=== PATIENT | female | born 1990 | race Two or more races ===

== ENCOUNTER 2020-01-29 21:07 | Inpatient (IN) ==
[2020-01-29] MEDS ORDERED: SODIUM CHLORIDE 0.9% 1000ML 1,000 ML IV ONE (21:39)
[2020-01-29] MEDS ORDERED: cefTRIAXone SODIUM 2,000 MG/70 ML BAG IV STA (21:39)
[2020-01-29] MEDS ORDERED: ONDANSETRON INJ 2 MG/ML 2 ML VIAL IV STA (21:40)
[2020-01-29] MEDS ORDERED: MoRPHine SULFATE 4 MG/ML 1 ML CARP\\VIAL IV STA (21:40)
--- NOTE | 2020-01-29 21:42 | Emergency Department Note ---
History of Present Illness General Chief complaint: Infection Stated complaint: CYST ON ABDOMIN, CHILLS Time Seen by Provider: 01/29/20 21:30 History of Present Illness Maximum Pain Intensity: 6 This 29-year-old diabetic presents to the ER complaining of lower abdominal wall infection Location: Lower abdomen Quality: Painful Severity: Moderate Duration: Past several days Timing: Started several days ago Context: Symptoms got worse and patient came in Modifying factors: better with rest; worse with palpation Patient states the redness spread and was concerned and came in. She complains of subjective fever and chills. No documented temperature. She is visiting from [place]. She is a [employer]. Patient denies chest pain, dyspnea, cough, congestion, vomiting, diarrhea. No history of MRSA. Tetanus is current. Home Medications Medication Instructions Recorded Confirmed Type fluticasone propion-salmeterol 1 inh INHALATION BID 01/29/20 01/29/20 History [Advair Diskus] metformin 500 mg PO BID 01/29/20 01/29/20 History Allergies Allergy/AdvReac Type Severity Reaction Status Date / Time No Known Allergies Allergy Unverified 01/29/20 22:44 Past Med/Surg History Medical History Asthma Diabetes Surgical History Hx of cholecystectomy Social History Smoking Status: Never smoker Feels Safe at Home: Yes Review of Systems A total of 10 systems reviewed and were otherwise negative Physical Exam Vital Signs Vital Signs - 24 hr 01/29/20 21:09 01/29/20 21:54 01/29/20 22:25 Temperature 36.6 C Temperature Source Temporal Artery Scan Pulse Rate 93 H 91 H Pulse Rate [Apical] Pulse Rate from SpO2 Sensor 92 H Respiratory Rate 18 19 Respiratory Effort / Characteristics Non-Labored Blood Pressure 181/125 H 159/105 H Blood Pressure [Left Arm] Blood Pressure Mean 143 130 Blood Pressure Mean [Left Arm] Pulse Oximetry 96 99 98 Oxygen Delivery Method Room Air Room Air Sepsis Recent Fever Within 48 Hours No Sepsis New/Unexplained Change in Mental Status No Sepsis Action Taken by Nursing No Action Required 01/29/20 22:29 01/29/20 22:30 01/29/20 22:31 Temperature Temperature Source Pulse Rate 88 94 H 91 H Pulse Rate [Apical] Pulse Rate from SpO2 Sensor 88 94 H 91 H Respiratory Rate 19 16 20 Respiratory Effort / Characteristics Blood Pressure 155/87 H Blood Pressure [Left Arm] Blood Pressure Mean 95 Blood Pressure Mean [Left Arm] Pulse Oximetry 98 96 98 Oxygen Delivery Method Sepsis Recent Fever Within 48 Hours Sepsis New/Unexplained Change in Mental Status Sepsis Action Taken by Nursing 01/29/20 23:00 01/29/20 23:01 01/29/20 23:10 Temperature Temperature Source Pulse Rate 88 86 85 Pulse Rate [Apical] Pulse Rate from SpO2 Sensor 88 86 85 Respiratory Rate 19 21 15 Respiratory Effort / Characteristics Blood Pressure 183/99 H Blood Pressure [Left Arm] Blood Pressure Mean 105 Blood Pressure Mean [Left Arm] Pulse Oximetry 98 98 98 Oxygen Delivery Method Sepsis Recent Fever Within 48 Hours Sepsis New/Unexplained Change in Mental Status Sepsis Action Taken by Nursing 01/29/20 23:26 01/29/20 23:27 01/30/20 00:11 Temperature Temperature Source Pulse Rate 88 93 H Pulse Rate [Apical] 90 Pulse Rate from SpO2 Sensor 87 93 H Respiratory Rate 18 15 18 Respiratory Effort / Characteristics Blood Pressure 159/71 H Blood Pressure [Left Arm] 146/76 H Blood Pressure Mean 95 Blood Pressure Mean [Left Arm] 99 Pulse Oximetry 98 97 98 Oxygen Delivery Method Room Air Sepsis Recent Fever Within 48 Hours Sepsis New/Unexplained Change in Mental Status Sepsis Action Taken by Nursing VITALS: Vitals are noted on the nurse's note and reviewed by myself. Vital signs hypertensive GENERAL: Pleasant female who appears in pain, in no acute distress, nondiaphoretic, well-developed well-nourished. SKIN: Capillary reflex less than 2 seconds. HEENT: Normocephalic. PERRLA. EOMI. Nares patent. Mucous membranes moist. Neck is supple without nuchal rigidity. HEART: Regular rate and rhythm without murmurs gallops or rubs. LUNGS: Clear to auscultation bilaterally without wheezes, rales or rhonchi. No retractions or accessory muscle use. ABDOMEN: Positive bowel sounds x 4. Normal tympanic percussion. Soft, tender to palpation lower abdomen with abscess present with extensive surrounding cellulitis, without masses or organomegaly. [place] sign negative. No guarding or rebound tenderness. No CVA tenderness MUSCULOSKELETAL: No gross musculoskeletal defects. NEURO: Patient was alert and oriented to person place and time. No focal neurological deficits. Course Administered Medications Discontinued Medications Sodium Chloride (Nss 1000ml) 1,000 mls @ 999 mls/hr IV .Q1H1M ONE Stop: 01/29/20 22:39 Last Infusion: 01/30/20 00:06 Dose: 0 mls/hr Documented by: [id number] Admin: 01/29/20 22:12 Dose: 999 mls/hr Documented by: [id number] Ceftriaxone Sodium (Rocephin) 2,000 mg in 70 mls @ 140 mls/hr IV NOW STA Stop: 01/29/20 22:08 Last Infusion: 01/29/20 22:51 Dose: 0 mls/hr Documented by: [id number] Admin: 01/29/20 22:21 Dose: 140 mls/hr Documented by: [id number] Vancomycin HCl 2,250 mg/ (Sodium Chloride) 545 mls @ 200 mls/hr IV NOW ONE Stop: 01/30/20 00:30 Last Admin: 01/29/20 23:05 Dose: 200 mls/hr Documented by: [id number] Ioversol (Ioversol 100ml) 94 ml IV ONCE ONE Stop: 01/29/20 23:24 Last Admin: 01/29/20 23:23 Dose: 94 ml Documented by: [id number] Morphine Sulfate (Morphine Sulfate 4 Mg/Ml 1 Ml Carp\Vial) 4 mg IV NOW STA Stop: 01/29/20 21:41 Last Admin: 01/29/20 22:21 Dose: 4 mg Documented by: [id number] Morphine Sulfate (Morphine Sulfate 4 Mg/Ml 1 Ml Carp\Vial) 4 mg IV NOW STA Stop: 01/30/20 00:07 Last Admin: 01/30/20 00:11 Dose: 4 mg Documented by: [id number] Ondansetron HCl (Ondansetron Inj 2 Mg/Ml 2 Ml Vial) 4 mg IV NOW STA Stop: 01/29/20 21:41 Last Admin: 01/29/20 22:21 Dose: 4 mg Documented by: [id number] Medical Decision Making Medical Records Attestation: I reviewed the patient's medical records. Home Medications Current Medication List: was personally reviewed by ms Laboratory Data Attestation: I reviewed the patient's lab results. Result diagrams: 01/29/20 22:01 01/29/20 22:01 Lab Results 01/29/20 01/29/20 01/29/20 Range/Units 22:00 22:01 22:01 WBC 15.15 H (4.8-10.8) K/uL RBC 4.76 (4.2-5.4) M/uL Hgb 12.9 (12.0-16.0) g/dL Hct 40.5 (37-47) % MCV 85.1 (80-100) fL MCH 27.1 (25-34) pg MCHC 31.9 L (32-36) g/dL RDW Std Deviation 42.4 (36.4-46.3) fL RDW Coeff of Wily 13.6 (11.5-14.5) % Plt Count 288 (130-400) K/uL MPV 10.9 H (7.4-10.4) fL Immature Gran % (Auto) 0.2 % Neut % (Auto) 72.4 % Lymph % (Auto) 17.4 % Harrison % (Auto) 6.0 % Eos % (Auto) 3.9 % Baso % (Auto) 0.1 % Neut # (Auto) 10.97 H (1.4-6.5) K/uL Lymph # (Auto) 2.64 (1.2-3.4) K/uL Harrison # (Auto) 0.91 H (0.11-0.59) K/uL Eos # (Auto) 0.59 H (0-0.5) K/uL Baso # (Auto) 0.01 (0-0.2) K/uL Immature Gran # (Auto) 0.03 H (0.00-0.02) K/uL Sodium 135 L (136-145) mmol/L Potassium 3.9 (3.5-5.1) mmol/L Chloride 103 (98-107) mmol/L Carbon Dioxide 27 (21-32) mmol/L Anion Gap 5.0 (3-11) BUN 12 (7-18) mg/dl Creatinine 0.79 (0.6-1.2) mg/dl Est Cr Clr Drug Dosing 125.6 ml/min Est GFR ( Amer) 117.2 Est GFR (Non-Af Amer) 101.2 BUN/Creatinine Ratio 15.6 (10-20) Glucose 229 H (70-99) mg/dl Lactate (0.4-2.0) mmol/L Calcium 8.6 (8.5-10.1) mg/dl Magnesium 1.9 (1.8-2.4) mg/dl Total Bilirubin 0.3 (0.2-1) mg/dl AST 35 (15-37) U/L ALT 54 (12-78) U/L Alkaline Phosphatase 126 H (45-117) U/L Total Protein 8.4 H (6.4-8.2) gm/dl Albumin 3.6 (3.4-5.0) gm/dl Globulin 4.8 H (2.5-4.0) gm/dl Albumin/Globulin Ratio 0.7 L (0.9-2) HCG, Qual (Negative) Urine Color Yellow Urine Appearance Slightly Cloudy (Clear) Urine pH 5.5 (4.5-7.5) Ur Specific [place] >= 1.030 (1.000-1.030) Urine Protein 1+ H (Negative) Urine Glucose (UA) 2+ H (Negative) Urine Ketones Trace H (Negative) Urine Blood 3+ H (Negative) Urine Nitrite Negative (Negative) Urine Bilirubin Negative (Negative) Urine Urobilinogen Negative (Negative) Ur Leukocyte Esterase Negative (Negative) Urine RBC >30 H (0-4) /hpf Urine WBC >30 H (0-5) /hpf Ur Epithelial Cells >30 H (0-5) /lpf Urine Bacteria 1+ H (Negative) SARS-CoV-2 Ag (Rapid) (Negative) 01/29/20 01/29/20 01/30/20 Range/Units 22:01 22:01 00:37 WBC (4.8-10.8) K/uL RBC (4.2-5.4) M/uL Hgb (12.0-16.0) g/dL Hct (37-47) % MCV (80-100) fL MCH (25-34) pg MCHC (32-36) g/dL RDW Std Deviation (36.4-46.3) fL RDW Coeff of Wily (11.5-14.5) % Plt Count (130-400) K/uL MPV (7.4-10.4) fL Immature Gran % (Auto) % Neut % (Auto) % Lymph % (Auto) % Harrison % (Auto) % Eos % (Auto) % Baso % (Auto) % Neut # (Auto) (1.4-6.5) K/uL Lymph # (Auto) (1.2-3.4) K/uL Harrison # (Auto) (0.11-0.59) K/uL Eos # (Auto) (0-0.5) K/uL Baso # (Auto) (0-0.2) K/uL Immature Gran # (Auto) (0.00-0.02) K/uL Sodium (136-145) mmol/L Potassium (3.5-5.1) mmol/L Chloride (98-107) mmol/L Carbon Dioxide (21-32) mmol/L Anion Gap (3-11) BUN (7-18) mg/dl Creatinine (0.6-1.2) mg/dl Est Cr Clr Drug Dosing ml/min Est GFR ( Amer) Est GFR (Non-Af Amer) BUN/Creatinine Ratio (10-20) Glucose (70-99) mg/dl Lactate 1.6 (0.4-2.0) mmol/L Calcium (8.5-10.1) mg/dl Magnesium (1.8-2.4) mg/dl Total Bilirubin (0.2-1) mg/dl AST (15-37) U/L ALT (12-78) U/L Alkaline Phosphatase (45-117) U/L Total Protein (6.4-8.2) gm/dl Albumin (3.4-5.0) gm/dl Globulin (2.5-4.0) gm/dl Albumin/Globulin Ratio (0.9-2) HCG, Qual Negative (Negative) Urine Color Urine Appearance (Clear) Urine pH (4.5-7.5) Ur Specific [place] (1.000-1.030) Urine Protein (Negative) Urine Glucose (UA) (Negative) Urine Ketones (Negative) Urine Blood (Negative) Urine Nitrite (Negative) Urine Bilirubin (Negative) Urine Urobilinogen (Negative) Ur Leukocyte Esterase (Negative) Urine RBC (0-4) /hpf Urine WBC (0-5) /hpf Ur Epithelial Cells (0-5) /lpf Urine Bacteria (Negative) SARS-CoV-2 Ag (Rapid) Negative (Negative) Imaging Data Attestation: I personally reviewed and interpreted this imaging study as follows: MDM Narrative Prior records/ancillary studies reviewed and summarized above. Nursing notes reviewed. The patient's history was concerning for abdominal wall infection. Differential diagnosis: Etiologies such as metabolic, infection, hypo/hyperglycemia, electrolyte abnormalities, cardiac sources, intracerebral event, toxicologic, neurologic, as well as others were entertained. Physical examination: As above. ER treatment provided: IV Lock An order was placed for continuous cardiac monitoring. The monitor shows a rate of 60-1 10 with a sinus rhythm. IV fluids, Rocephin, morphine, Zofran On reassessment the patient felt better. Diagnostics interpretation by me: The labs revealed leukocytosis, hyperglycemia w/o DKA Blood cultures pending Imaging studies: ADDENDUM - Added by Luis Armando Acevedo MD on 01/29/2020 11:50 PM (-08:00) Addendum: Abscess along the right lower quadrant abdominal wall skin surface measuring 3.0 x 2.6 x 2.3 cm. Surrounding skin thickening and subcutaneous fat stranding consistent with cellulitis. CT ABDOMEN & PELVIS With Contrast: No acute abnormality along the GI tract. Normal appendix. Minimal colonic diverticulosis without diverticulitis. Hepatic steatosis and hepatomegaly. Cholecystectomy. Pancreas, spleen, adrenal glands, and kidneys are unremarkable. Left ovarian cyst measuring 2.8 cm. Radiologist: Luis Armando Acevedo MD Study ready at 23:30 and initial results transmitted at 23:36 Communications: Clear Time Type Notes 01/29/20 23:54 Call From [facility] TEDDY Oglesby on 01/28 23:47 (-05:00) Consultation: A consultation was placed with the hospitalist. The case was discussed and diagnostics were reviewed. The patient was evaluated in the ER for further treatment. Exam and history seem consistent with abdominal wall cellulitis with small abscess. This is quite extensive. Patient was started on antibiotics. Medicine was consulted. She will be evaluated for admission. Patient had subjective fever and chills. Elevated white count. Poorly controlled diabetic. By the evaluation outlined above emergent etiologies such as electrolyte abnormalities, cardiac sources, intracerebral event, toxologic, neurologic, metabolic, as well as others were deemed relatively unlikely. The pt informed about the findings as listed above. All questions were answered and pleased with the treatment. The chart was completed utilizing [employer] Speech voice recognition software. G rammatical errors, random word insertions, pronoun errors, and incomplete sentences are an occassional consequence of this system due to software limitations, ambient noise, and hardware issues. Any formal questions or concerns about the content, text, or information contained within the body of th is dictation should be directly addressed to the physician front desk assistant for clarification. Impression & Plan Abdominal wall cellulitis Discharge Plan Visit Data Chief Complaint: Infection Stated Complaint: CYST ON ABDOMIN, CHILLS ED Provider: Homero Lopez ED Midlevel Provider: Juliana Oglesby Discharge Problem: Abdominal wall cellulitis Patient Disposition: Admitted As Inpatient Condition: Good Forms Stand Alone Forms: [facility] Instilling Values Prescriptions Prescriptions: No Action metformin 500 mg Tablet 500 mg PO BID RF: 0 fluticasone propion-salmeterol [Advair Diskus] 250-50 mcg/dose Blister With Device 1 inh INHALATION BID RF: 0 Referrals Referrals: PCP,NO [Primary Care Provider] -
[2020-01-29] MEDS ORDERED: VANCOMYCIN HCL 2,250 MG in SODIUM CHLORIDE 0.9% 500 ML IV ONE (21:47)
[2020-01-29] MEDS ORDERED: VANCOMYCIN CONSULT ACTIVE PRN (21:47)
[2020-01-29 22:17] LABS: Basophils # (auto) 0.01 K/uL (0-0.2); Basophils % (auto) 0.1 %; Eosinophils # (auto) 0.59 K/uL (0-0.5); Eosinophils % (auto) 3.9 %; Hematocrit (blood only) 40.5 % (37-47); Hemoglobin 12.9 g/dL (12.0-16.0); Immature Granulocytes # (auto) 0.03 K/uL (0.00-0.02); Immature Granulocytes % (auto) 0.2 %; Lymphocytes # (auto) 2.64 K/uL (1.2-3.4); Lymphocytes % (auto) 17.4 %; Mean Corpuscular Hemoglobin 27.1 pg (25-34); Mean Corpuscular Hgb Conc 31.9 g/dL (32-36); Mean Corpuscular Volume 85.1 fL (80-100); Mean Platelet Volume 10.9 fL (7.4-10.4); Monocytes # (auto) 0.91 K/uL (0.11-0.59); Neutrophils # (auto) 10.97 K/uL (1.4-6.5); Neutrophils % (auto) 72.4 %; Platelet Count 288 K/uL (130-400); RDW Coefficient of Variation 13.6 % (11.5-14.5); RDW Standard Deviation 42.4 fL (36.4-46.3); Red Blood Count 4.76 M/uL (4.2-5.4); White Blood Count 15.15 K/uL (4.8-10.8)
[2020-01-29 22:23] LABS: Appearance Urine Slightly Cloudy (Clear); Bilirubin Urine Negative (Negative); Blood Urine 3+ (Negative); Color Urine Yellow; Glucose Urine UA 2+ (Negative); Ketones Urine Trace (Negative); Leukocyte Esterase Urine Negative (Negative); Nitrite Urine Negative (Negative); Protein Urine 1+ (Negative); Specific Gravity Urine >= 1.030 (1.000-1.030); Urobilinogen Urine Negative (Negative); pH Urine 5.5 (4.5-7.5)
[2020-01-29 22:45] LABS: Epithelial Cell Urine >30 /lpf (0-5); RBC Urine >30 /hpf (0-4); WBC Urine >30 /hpf (0-5)
[2020-01-29 22:46] LABS: Albumin Level 3.6 gm/dl (3.4-5.0); BUN Creatinine Ratio 15.6 (10-20); Calcium 8.6 mg/dl (8.5-10.1); Creatinine Clr Calc Pharmacy 125.6 ml/min; Est GFR (African American) 117.2; Est GFR (Non-African American) 101.2; Magnesium 1.9 mg/dl (1.8-2.4); Potassium 3.9 mmol/L (3.5-5.1)
[2020-01-29 22:46] LABS: Bacteria Urine 1+ (Negative)
[2020-01-29 22:49] LABS: Albumin Globulin Ratio 0.7 (0.9-2); Bilirubin,Total 0.3 mg/dl (0.2-1); Globulin 4.8 gm/dl (2.5-4.0); Pregnancy Test, Serum Negative (Negative); Total Protein 8.4 gm/dl (6.4-8.2)
[2020-01-29] MEDS ORDERED: IOVERSOL 100ml IV ONE (23:23)
[2020-01-30] MEDS ORDERED: MoRPHine SULFATE 4 MG/ML 1 ML CARP\\VIAL IV STA (00:06)
--- NOTE | 2020-01-30 01:25 | History & Physical Report ---
Date of Service January 30, 2020 Assessment & Plan (1) Abdominal wall cellulitis: Patient is a 29-year-old female with a past medical history of obesity, diabetes mellitus, asthma, cholecystectomy, and lipoma removal who presents for evaluation of suspected infection with associated abdominal pain. #Abdominal wall pain secondary to cellulitis complicated by diabetes in the setting of obesity and asthma See HPI for patient's history related to this illness. Imaging was obtained of the CT abdomen pelvis demonstrating abscess along the right lower quadrant abdominal wall skin surface measuring 3 x 2.6 x 2.3 cm surrounding skin thickening and subcu fat stranding consistent with cellulitis. Patient examines with a infected skin abscess on her right lower quadrant, exquisitely tender to palpation, with significant erythema across the bilateral lower quadrants. 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 We will consult surgery to for their opinions on the merits of incision and drainage versus medical management to that extent the patient will be made n.p.o. She will be admitted to [facility] for treatment. -Analgesia with morphine -Appreciate general surgery consultation regarding I&D versus medical management -N.p.o. after midnight -LR@125 -Vancomycin daily -Trend daily CBC/BMP #Diabetes Hold home meds, glycemic consult placed -Glycemic consult #Asthma -Continue home Advair #Heavy vaginal bleeding related to menstruation Patient reports a recent history of heavy vaginal bleeding related to her menstruation. Currently she is not having any heavy bleeding, denies being . Denies other concerning signs or symptoms that would indicate an underlying gynecological process. 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 pending surgical evaluation then diabetes type 2 diet Code Status: Full DVT PPX: SCDs pending surgical evaluation then consider transition to heparin versus Lovenox PT/OT: Not indicated Dispo: [facility] Kory Bray MD PGY 2, FCM This chart was completed utilizing [employer] voice recognition software. Grammatical errors, random word insertions, pronoun errors, and in complete sentences are an occasional consequence of the system. Any questions or concerns about the content, text, or information contained within the body of this dictation should be addressed directly to the physician for clarification. (2) Obesity: (3) Diabetes: (4) Asthma: History of Present Illness Patient is a 29-year-old female with a past medical history of obesity, diabetes mellitus, asthma, cholecystectomy, and lipoma removal who presents for evaluation of suspected infection with associated abdominal pain. Patient reports she has been in her normal state of health, adhering to her diabetic medication as indicated until approximately 5 days ago when she noticed a boil on her lower abdomen. She attempted to apply hot compresses to it, despite her efforts to continue to progressively increase in size and her pain increased as well. Today the patient stated the pain became unbearable, and the size had more than quadrupled. She was also experiencing significant erythema across the entire lower abdominal wall. Additionally she was experiencing fevers, chills, anorexia and generalized malaise associated with her boil and erythema. At her sister's insistence she presented to the [facility] in the emergency room.In the emergency department routine laboratories were obtained demonstrating a white count of 15.15 with a neutrophil per domination, CMP demonstrated a glucose of 229, alk phos of 126, and liver enzymes within normal limits. Urinalysis was suspicious for UTI versus skin contamination, will have to follow-up the culture, blood and urine cultures were obtained. Imaging was obtained of the CT abdomen pelvis demonstrating abscess along the right lower quadrant abdominal wall skin surface measuring 3 x 2.6 x 2.3 cm surrounding skin thickening and mabry bcu fat stranding consistent with cellulitis. Patient was Covid negative. She was given a dose of vancomycin, a liter of fluid, pain control, and ceftriaxone in the emergency department. Given her constitutional symptoms, physical exam findings, and imaging findings the primary team was called for admission. 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 Additionally when inquiring about the patient reported a recent history of extremely heavy menstruation lasting for an extended period of time with associated fatigue, she is not currently heavily menstruating. Primary Care Provider: NO PCP Allergies Allergy/AdvReac Type Severity Reaction Status Date / Time No Known Allergies Allergy Unverified 01/29/20 22:44 Home Medications Medication Instructions Recorded Confirmed Type fluticasone propion-salmeterol 1 inh INHALATION BID 01/29/20 01/29/20 History [Advair Diskus] metformin 500 mg PO BID 01/29/20 01/29/20 History Past Med/Surg History Medical History (Updated 01/30/20 @ 12:00 by Morris Collins MD) Asthma Diabetes Surgical History Hx of cholecystectomy Social History Smoking Status: Former smoker Second Hand Exposure: No; Do You Dip or Chew Tobacco: No; Tobacco Cessation Education Requested by Patient: No Hx Alcohol Use: Yes Alcohol type: wine and hard liquor Hx Substance Use: Yes Last Used Substance: Days (ago) Preferred Language: Mohawk Communication Ability: Effective Director Of Social Work Required: No Beliefs That Will Affect Care: None Current Living Situation: Alone Other Information That Helps Us Care for You: No Feels Safe at Home: Yes Safety Concerns: Feels Safe At This Time Assistive Devices: Glasses Review of Systems Review of Systems: All systems reviewed & are unremarkable except as noted in HPI & below Physical Exam Physical Exam: General: Obese female in no acute distress lying in bed endorsing abdominal pain HEENT: Normocephalic atraumatic Neck: Normal to visual inspection, trachea midline Cardiac: Regular rate and rhythm I did not appreciate any significant murmurs rubs or gallops, normal S1, normal S2, negative pedal edema, negative calf tenderness Respiratory: Clear to auscultation bilaterally with symmetrical chest expansion I did not appreciate any significant wheezes, rales, rhonchi, no increased work of breathing GI: Lower quadrants are soft and tender to palpation, soft abdomen is protuberant however nondistended, tenderness is related to infection. Otherwise bowel sounds present MSK: Moves all extremities Skin: Abscess formation the right lower quadrant and erythema in the lower quadrants of her abdomen Neuro: Alert and oriented x4 Psych: Calm and cooperative Results & Data Results & Data ([facility]) Vital Signs (Past 12 Hours) Vital Signs Temp Pulse Pulse Resp BP BP Pulse Ox 01/30/20 00:11 90 18 146/76 H 98 01/29/20 23:27 93 H 15 159/71 H 97 01/29/20 23:26 88 18 98 01/29/20 23:10 85 15 98 01/29/20 23:01 86 21 98 01/29/20 23:00 88 19 183/99 H 98 01/29/20 22:31 91 H 20 98 01/29/20 22:30 94 H 16 155/87 H 96 01/29/20 22:29 88 19 98 01/29/20 22:25 91 H 19 159/105 H 98 01/29/20 21:54 99 01/29/20 21:09 36.6 C 93 H 18 181/125 H 96 Laboratory Results 01/30/20 01/29/20 01/29/20 Range/Units 00:37 22:01 22:01 WBC (4.8-10.8) K/uL RBC (4.2-5.4) M/uL Hgb (12.0-16.0) g/dL Hct (37-47) % MCV (80-100) fL MCH (25-34) pg MCHC (32-36) g/dL RDW Std Deviation (36.4-46.3) fL RDW Coeff of Wily (11.5-14.5) % Plt Count (130-400) K/uL MPV (7.4-10.4) fL Immature Gran % (Auto) % Neut % (Auto) % Lymph % (Auto) % Ford % (Auto) % Eos % (Auto) % Baso % (Auto) % Neut # (Auto) (1.4-6.5) K/uL Lymph # (Auto) (1.2-3.4) K/uL Ford # (Auto) (0.11-0.59) K/uL Eos # (Auto) (0-0.5) K/uL Baso # (Auto) (0-0.2) K/uL Immature Gran # (Auto) (0.00-0.02) K/uL Sodium (136-145) mmol/L Potassium (3.5-5.1) mmol/L Chloride (98-107) mmol/L Carbon Dioxide (21-32) mmol/L Anion Gap (3-11) BUN (7-18) mg/dl Creatinine (0.6-1.2) mg/dl Est Cr Clr Drug Dosing ml/min Est GFR ( Amer) Est GFR (Non-Af Amer) BUN/Creatinine Ratio (10-20) Glucose (70-99) mg/dl Lactate 1.6 (0.4-2.0) mmol/L Calcium (8.5-10.1) mg/dl Magnesium (1.8-2.4) mg/dl Total Bilirubin (0.2-1) mg/dl AST (15-37) U/L ALT (12-78) U/L Alkaline Phosphatase (45-117) U/L Total Protein (6.4-8.2) gm/dl Albumin (3.4-5.0) gm/dl Globulin (2.5-4.0) gm/dl Albumin/Globulin Ratio (0.9-2) HCG, Qual Negative (Negative) Urine Color Urine Appearance (Clear) Urine pH (4.5-7.5) Ur Specific [place] (1.000-1.030) Urine Protein (Negative) Urine Glucose (UA) (Negative) Urine Ketones (Negative) Urine Blood (Negative) Urine Nitrite (Negative) Urine Bilirubin (Negative) Urine Urobilinogen (Negative) Ur Leukocyte Esterase (Negative) Urine RBC (0-4) /hpf Urine WBC (0-5) /hpf Ur Epithelial Cells (0-5) /lpf Urine Bacteria (Negative) SARS-CoV-2 Ag (Rapid) Negative (Negative) 01/29/20 01/29/20 01/29/20 Range/Units 22:01 22:01 22:00 WBC 15.15 H (4.8-10.8) K/uL RBC 4.76 (4.2-5.4) M/uL Hgb 12.9 (12.0-16.0) g/dL Hct 40.5 (37-47) % MCV 85.1 (80-100) fL MCH 27.1 (25-34) pg MCHC 31.9 L (32-36) g/dL RDW Std Deviation 42.4 (36.4-46.3) fL RDW Coeff of Wily 13.6 (11.5-14.5) % Plt Count 288 (130-400) K/uL MPV 10.9 H (7.4-10.4) fL Immature Gran % (Auto) 0.2 % Neut % (Auto) 72.4 % Lymph % (Auto) 17.4 % Ford % (Auto) 6.0 % Eos % (Auto) 3.9 % Baso % (Auto) 0.1 % Neut # (Auto) 10.97 H (1.4-6.5) K/uL Lymph # (Auto) 2.64 (1.2-3.4) K/uL Ford # (Auto) 0.91 H (0.11-0.59) K/uL Eos # (Auto) 0.59 H (0-0.5) K/uL Baso # (Auto) 0.01 (0-0.2) K/uL Immature Gran # (Auto) 0.03 H (0.00-0.02) K/uL Sodium 135 L (136-145) mmol/L Potassium 3.9 (3.5-5.1) mmol/L Chloride 103 (98-107) mmol/L Carbon Dioxide 27 (21-32) mmol/L Anion Gap 5.0 (3-11) BUN 12 (7-18) mg/dl Creatinine 0.79 (0.6-1.2) mg/dl Est Cr Clr Drug Dosing 125.6 ml/min Est GFR ( Amer) 117.2 Est GFR (Non-Af Amer) 101.2 BUN/Creatinine Ratio 15.6 (10-20) Glucose 229 H (70-99) mg/dl Lactate (0.4-2.0) mmol/L Calcium 8.6 (8.5-10.1) mg/dl Magnesium 1.9 (1.8-2.4) mg/dl Total Bilirubin 0.3 (0.2-1) mg/dl AST 35 (15-37) U/L ALT 54 (12-78) U/L Alkaline Phosphatase 126 H (45-117) U/L Total Protein 8.4 H (6.4-8.2) gm/dl Albumin 3.6 (3.4-5.0) gm/dl Globulin 4.8 H (2.5-4.0) gm/dl Albumin/Globulin Ratio 0.7 L (0.9-2) HCG, Qual (Negative) Urine Color Yellow Urine Appearance Slightly Cloudy (Clear) Urine pH 5.5 (4.5-7.5) Ur Specific [place] >= 1.030 (1.000-1.030) Urine Protein 1+ H (Negative) Urine Glucose (UA) 2+ H (Negative) Urine Ketones Trace H (Negative) Urine Blood 3+ H (Negative) Urine Nitrite Negative (Negative) Urine Bilirubin Negative (Negative) Urine Urobilinogen Negative (Negative) Ur Leukocyte Esterase Negative (Negative) Urine RBC >30 H (0-4) /hpf Urine WBC >30 H (0-5) /hpf Ur Epithelial Cells >30 H (0-5) /lpf Urine Bacteria 1+ H (Negative) SARS-CoV-2 Ag (Rapid) (Negative) Medications Administered Current Inpatient Medications Miscellaneous Information (Vancomycin Consult Active) 1 ea N/A UD PRN PRN Reason: Consult Stop: 02/28/20 21:46 Code Status & VTE Plan Code Status Full code VTE Prophylaxis Plan VTE Prophylaxis will be ordered: Yes Supervising Physician Co-Signing Physician Notes Attending addendum: I have physically seen this patient, have supervised the medical residents activities, and agree with the H&P unless as otherwise noted. Assessment and Plan: Abdominal wall cellulitis- Vancomycin IV per pharmacokinetic monitoring Ceftriaxone 2 g IV daily NPO after midnight LR at 125 mils per hour Consult general surgery Diabetes mellitus- Glycemic consult was written for Asthma- Continue Advair as outpatient Remaining orders and notations as noted Resident Activity Tracking Resident Involvement: Resident Care Provided Care Provided: Adult Hospital Medicine
[2020-01-30] MEDS ORDERED: VANCOMYCIN CONSULT ACTIVE PRN (01:41)
[2020-01-30] MEDS: LACTATED RINGER'S 1,000 ML IV SCH ×2 (01:45→14:10)
[2020-01-30] MEDS ORDERED: VANCOMYCIN HCL 1,000 MG in SODIUM CHLORIDE 0.9% 250 ML IV SCH (01:45)
[2020-01-30] MEDS: MoRPHine SULFATE 4 MG/ML 1 ML CARP\\VIAL IV PRN ×3 (03:14→14:24)
[2020-01-30] MEDS ORDERED: PHARMACY GLYCEMIC MGMT CONSULT PRN (03:16)
[2020-01-30] MEDS ORDERED: GLUCOSE 40% GEL 15 GM TUBE PO PRN (03:30)
[2020-01-30] MEDS ORDERED: GLUCOSE 10 TABS/TUBE PO PRN (03:30)
[2020-01-30] MEDS ORDERED: GLUCAGON FOR INJ 1 MG VIAL SQ PRN (03:30)
[2020-01-30] MEDS ORDERED: DEXTROSE 50% 50 ML SYRINGE IV PRN (03:30)
[2020-01-30] MEDS ORDERED: CARBOHYDRATES FOR HYPOGLYCEMIA PO PRN (03:30)
[2020-01-30] MEDS: INSULIN ASPART 100 UNITS/ML 3 ML PEN SC SCH ×5 (04:21→20:46)
--- NOTE | 2020-01-30 07:13 | CT Scan Report ---
CT abd pelvis IV con only CLINICAL HISTORY: Lower abdominal pain COMPARISON STUDY: None. TECHNIQUE: The patient was scanned in a dynamic helical fashion during intravenous administration of 94 cc of Optiray 320 A dose lowering technique was utilized adhering to the principles of ALARA. CT DOSE: 1599.53 mGy.cm FINDINGS: Lower chest: Minimal basilar airspace opacities are likely atelectatic. Liver: There is hepatic steatosis. No focal hepatic masses are visualized. Gallbladder: Surgically absent Spleen: Normal in size and attenuation. Pancreas: Unremarkable. Adrenal glands: Unremarkable. Kidneys: There is symmetric renal cortical enhancement. The kidneys are normal in size without hydron ephrosis. Bowel: There are no transition zones to indicate bowel obstruction. There is no evidence of acute div erticulitis. The appendix appears normal Peritoneum: There is no intraperitoneal free air or abdominal ascites. Vasculature: The abdominal aorta is normal in course and caliber. Adenopathy: There are mildly prominent inguinal and iliac lymph nodes likely reactive. Pelvic viscera: There is an indwelling tampon Skeletal structures: Inflammatory changes are present involving the skin and subcutaneous tissues of the lower anterior abdominal wall. There is a 29 mm fluid collections suspicious for small abscess. IMPRESSION: 1. 29 mm fluid collection within the subcutaneous tissues of the right lower anterior abdominal wall suspicious for an abscess. There is surrounding skin thickening suggesting cellulitis 2. No evidence of bowel obstruction. No evidence of free air 3. Normal appendix. No evidence of acute diverticulitis 4. Hepatic steatosis. ACT 112: Negative or not required by law. Electronically signed by: Bryan Pisano M.D. 01/30/2020 7:12 AM
[2020-01-30 07:36] LABS: Basophils # (auto) 0.01 K/uL (0-0.2); Basophils % (auto) 0.1 %; Eosinophils # (auto) 0.48 K/uL (0-0.5); Eosinophils % (auto) 3.9 %; Hematocrit (blood only) 38.3 % (37-47); Immature Granulocytes # (auto) 0.04 K/uL (0.00-0.02); Immature Granulocytes % (auto) 0.3 %; Lymphocytes # (auto) 2.37 K/uL (1.2-3.4); Lymphocytes % (auto) 19.4 %; Mean Corpuscular Hgb Conc 31.3 g/dL (32-36); Mean Corpuscular Volume 86.3 fL (80-100); Mean Platelet Volume 10.4 fL (7.4-10.4); Monocytes % (auto) 4.9 %; Neutrophils % (auto) 71.4 %; Platelet Count 257 K/uL (130-400); RDW Coefficient of Variation 13.8 % (11.5-14.5); RDW Standard Deviation 43.4 fL (36.4-46.3); Red Blood Count 4.44 M/uL (4.2-5.4)
[2020-01-30] MEDS: VANCOMYCIN HCL 1,250 MG in SODIUM CHLORIDE 0.9% 250 ML IV SCH ×2 (07:43→15:34)
[2020-01-30] MEDS: POLYETHYLENE (MIRALAX) 17 GM PACK PO SCH ×2 (07:46→20:44)
[2020-01-30] MEDS: FLUTICASONE/VILANTEROL 100/25MCG 14 PUFFS/INHALER INH SCH (07:47)
--- NOTE | 2020-01-30 07:56 | Surgery Consultation ---
Date of Consultation January 30, 2020 Assessment & Plan (1) Abdominal wall cellulitis: [place]ushing with the patient and recommendation was to open this area and would like to proceed in the operating room to debride it culture at unlikely packet will proceed later on this morning all questions were answered History of Present Illness Reason for Consultation: Infection lower abdominal area Attending Physician: Sean Kiran MD History of Present Illness Patient came into the emergency room last evening with significant pain in lower abdomen abdominal wall underwent a CT scan which showed localized 3 cm plus abscess and a large panniculus with extensive cellulitis we were asked to see her regarding this Allergies Allergy/AdvReac Type Severity Reaction Status Date / Time No Known Allergies Allergy Unverified 01/29/20 22:44 Home Medications Medication Instructions Recorded Confirmed Type fluticasone propion-salmeterol 1 inh INHALATION BID 01/29/20 01/29/20 History [Advair Diskus] metformin 500 mg PO BID 01/29/20 01/29/20 History Patient History Medical History (Updated 01/30/20 @ 01:31 by Kory Bray MD) Asthma Diabetes Surgical History Hx of cholecystectomy Social History Smoking Status: Former smoker Second Hand Exposure: No; Do You Dip or Chew Tobacco: No; Tobacco Cessation Education Requested by Patient: No Hx Alcohol Use: Yes Alcohol type: wine and hard liquor Hx Substance Use: Yes Last Used Substance: Days (ago) Preferred Language: Latvian Communication Ability: Effective Vascular Nurse Required: No Beliefs That Will Affect Care: None Current Living Situation: Alone Other Information That Helps Us Care for You: No Feels Safe at Home: Yes Safety Concerns: Feels Safe At This Time Assistive Devices: Glasses Physical Exam Physical Exam: Patient is alert no distress very pleasant Abdominal exam at this time revealed a large panniculus which towards the right side there is extensive cellulitis probably extending about 30 to 40 cm transversely about 10 to 15 cm cephalad, then with a 3 cm or so very prominent some skin necrosis and beginning of drainage the area is approximately 3 to [address] scan revealed this about 3 cm consistent with an abscess and some subcutaneous fatty necrosis Results & Data ([facility]) Vital Signs (Past 12 Hours) Vital Signs Temp Pulse Pulse Pulse Resp BP BP 01/30/20 07:07 36.7 C 82 16 139/73 01/30/20 02:25 37 C 94 H 18 135/91 01/30/20 02:01 104 H 18 01/30/20 02:00 88 15 141/71 H 01/30/20 01:50 89 18 01/30/20 01:40 84 17 01/30/20 01:31 86 18 01/30/20 01:30 82 19 168/84 H 01/30/20 01:01 91 H 20 01/30/20 01:00 92 H 20 144/72 H 01/30/20 00:31 92 H 19 01/30/20 00:30 88 19 138/80 01/30/20 00:11 90 18 146/76 H 01/30/20 00:01 90 20 01/30/20 00:00 90 21 146/76 H 01/29/20 23:31 95 H 17 01/29/20 23:30 87 22 154/83 H 01/29/20 23:28 88 16 01/29/20 23:27 93 H 15 159/71 H 01/29/20 23:26 88 18 01/29/20 23:10 85 15 01/29/20 23:01 86 21 01/29/20 23:00 88 19 183/99 H 01/29/20 22:31 91 H 20 01/29/20 22:30 94 H 16 155/87 H 01/29/20 22:29 88 19 01/29/20 22:25 91 H 19 159/105 H 01/29/20 21:54 01/29/20 21:09 36.6 C 93 H 18 181/125 H Pulse Ox Pulse Ox 01/30/20 07:07 95 01/30/20 02:25 95 95 01/30/20 02:01 97 01/30/20 02:00 97 01/30/20 01:50 97 01/30/20 01:40 93 01/30/20 01:31 94 01/30/20 01:30 94 01/30/20 01:01 95 01/30/20 01:00 95 01/30/20 00:31 98 01/30/20 00:30 98 01/30/20 00:11 98 12/11/20 00:01 98 01/30/20 00:00 98 01/29/20 23:31 98 01/29/20 23:30 98 01/29/20 23:28 98 01/29/20 23:27 97 01/29/20 23:26 98 01/29/20 23:10 98 01/29/20 23:01 98 01/29/20 23:00 98 01/29/20 22:31 98 01/29/20 22:30 96 01/29/20 22:29 98 01/29/20 22:25 98 01/29/20 21:54 99 01/29/20 21:09 96 PG Care Time/CCT Total # of Minutes Spent Total Time Spent with Patient: Total time spent is greater than 50% in coordination of care (as documented) at patient's floor/unit and/or counseling patient: Coding Level of Care Code 82529 Inpt Consult Level 5 Diagnoses Abdominal wall cellulitis L03.311
[2020-01-30] MEDS ORDERED: DEXAMETHASONE SOD INJ 4 MG/ML VIAL ONE (08:10)
[2020-01-30] MEDS ORDERED: MIDAZOLAM HCL 1 MG/ML 2ML VIAL ONE ×2 (08:10→10:30)
[2020-01-30] MEDS ORDERED: fentaNYL citrate 100 MCG/2 ML VIAL ONE ×2 (08:10→10:30)
[2020-01-30] MEDS ORDERED: PROPOFOL IV EMULSION 10 MG/ML 20 ML VIAL IV ONE ×3 (08:10→13:13)
[2020-01-30] MEDS ORDERED: LIDOCAINE HCL 2% 2 ML VIAL/AMP(20MG/ML) INFIL ONE ×3 (08:10→13:13)
[2020-01-30] MEDS ORDERED: ONDANSETRON INJ 2 MG/ML 2 ML VIAL ONE ×2 (08:10→12:38)
[2020-01-30 08:18] LABS: BUN Creatinine Ratio 16.6 (10-20); Calcium 8.3 mg/dl (8.5-10.1); Est GFR (Non-African American) 118.2; Potassium 3.9 mmol/L (3.5-5.1)
--- NOTE | 2020-01-30 09:10 | Pharmacy Report ---
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 treatment of abdominal wall cellulitis with possible need for I&D * Patient seen by surgery this morning and will have I&D - currently NPO * BSGs of 202 and 184 mg/dL so far * Will await A1c result and likely order basal insulin postoperatively * Currently only ordered correction factor of 25 with no carb coverage - will address postoperatively * Patient received 4 mg IV dexamethasone perioperatively * Postoperative BSG of 253 mg/dL * Will tighten Novolog, add carb ratio, give one-time NPH 30 units (~0.4 unit/kg adjusted body weight) PLAN FOR INPATIENT GLYCEMIC CONTROL: * Hold outpatient oral diabetes medications * Basal insulin * NPH 30 units SC x 1 * Lantus 20 units SC HS * Bolus insulin * NovoLog per scale ACHS or Q6hrs while NPO * Goal Range: Low 110 mg/dL - High 140 mg/dL * Correction Factor: 20 mg/dL/unit * Nutritional / Prandial insulin per carb ratio of 1 unit per 7 grams CHO consumed PLAN FOR DISCHARGE: * await HbA1c result
--- NOTE | 2020-01-30 09:50 | Pharmacy Report ---
Pharmacy Abx Initial Consult - Date of Service January 30, 2020 - Pharmacy Dosing Scope Date of Consult: 01/30/20 Consultation requested by: Dr. Kory Bray Pharmacy is consulted to initiate vancomcyin IV dosing therapy, order appropriate labs and adjust drug dose/frequency. - Subjective The patient is a 29 year old F admitted on 01/30/20 01:43. - Objective Height: 5 ft 1 in Weight: 129.4 kg Vital Signs (Past 12hrs): Vital Signs Temp Pulse Pulse Pulse Resp BP BP 01/30/20 07:07 36.7 C 82 16 139/73 01/30/20 02:25 37 C 94 H 18 135/91 01/30/20 02:01 104 H 18 01/30/20 02:00 88 15 141/71 H 01/30/20 01:50 89 18 01/30/20 01:40 84 17 01/30/20 01:31 86 18 01/30/20 01:30 82 19 168/84 H 01/30/20 01:01 91 H 20 01/30/20 01:00 92 H 20 144/72 H 01/30/20 00:31 92 H 19 01/30/20 00:30 88 19 138/80 01/30/20 00:11 90 18 146/76 H 01/30/20 00:01 90 20 01/30/20 00:00 90 21 146/76 H 01/29/20 23:31 95 H 17 01/29/20 23:30 87 22 154/83 H 01/29/20 23:28 88 16 01/29/20 23:27 93 H 15 159/71 H 01/29/20 23:26 88 18 01/29/20 23:10 85 15 01/29/20 23:01 86 21 01/29/20 23:00 88 19 183/99 H 01/29/20 22:31 91 H 20 01/29/20 22:30 94 H 16 155/87 H 01/29/20 22:29 88 19 01/29/20 22:25 91 H 19 159/105 H 01/29/20 21:54 Pulse Ox Pulse Ox 01/30/20 07:07 95 01/30/20 02:25 95 95 01/30/20 02:01 97 01/30/20 02:00 97 01/30/20 01:50 97 01/30/20 01:40 93 01/30/20 01:31 94 01/30/20 01:30 94 01/30/20 01:01 95 01/30/20 01:00 95 01/30/20 00:31 98 01/30/20 00:30 98 01/30/20 00:11 98 01/30/20 00:01 98 01/30/20 00:00 98 01/29/20 23:31 98 01/29/20 23:30 98 01/29/20 23:28 98 01/29/20 23:27 97 01/29/20 23:26 98 01/29/20 23:10 98 01/29/20 23:01 98 01/29/20 23:00 98 01/29/20 22:31 98 01/29/20 22:30 96 01/29/20 22:29 98 01/29/20 22:25 98 01/29/20 21:54 99 Lab Results (24hrs): Laboratory Tests (24 Hours) 01/30/20 01/30/20 01/29/20 07:12 07:12 22:01 WBC 12.20 H Neut # (Auto) 8.70 H Creatinine 0.68 0.79 Est Cr Clr Drug Dosing 155.0 125.6 01/29/20 22:01 WBC 15.15 H Neut # (Auto) 10.97 H Creatinine Est Cr Clr Drug Dosing Micro Results: 01/29/20 22:00 Urine Culture - Pending Urine,Clean Catch 01/29/20 21:55 Aerobic Blood Culture - Pending Blood Anaerobic Blood Culture - Pending 01/29/20 22:00 Aerobic Blood Culture - Pending Blood Anaerobic Blood Culture - Pending - Assessment & Plan Assessment 29 year old F ordered empiric vancomycin for treatment of abdominal wall cellulitis. Presents with abdominal wall abscess along right lower quadrant of abdominal wall. Per patient, she noticed the boil on her lower abdomen about 5 day ago and it has progressed in size since then. Patient endorses fevers, chills, generalized malaise, and increasing painfulness of boil. 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 Empiric vancomycin appropriate at this time. Surgical consult placed and patient will have I&D today for source control. Blood cultures x 2: obtained and pending Urine culture: obtained and pending Plan Vancomycin IV * Estimated PK Parameters: Kristian (>0.104 hr-1, t1/2 <6 hr * Loading dose: 2250 mg (17 mg/kg) * Maintenance dose: 1250 mg IV (10 mg/kg) every 8 hours * Goal trough level for cellulitis : 10 to 20 mcg/mL * Trough level ordered for 01/31/20 * A less than traditional dose has been selected due to likelihood of drug accumulation in obese patient. Pharmacy will continue to follow and will adjust dose/frequency as necessary. Thank you.
[2020-01-30] MEDS: ONDANSETRON INJ 2 MG/ML 2 ML VIAL IV PRN (10:09)
[2020-01-30] MEDS ORDERED: BACITRACIN INJ 50,000 UNIT VIAL ONE (11:10)
[2020-01-30] MEDS ORDERED: ONDANSETRON INJ 2 MG/ML 2 ML VIAL IV PRN (12:00)
[2020-01-30] MEDS ORDERED: ePHEDrine sulfate 50 MG/ML AMP IV PRN (12:00)
[2020-01-30] MEDS ORDERED: ATROPINE SULFATE 0.1 MG/ML 10ML SYR IV PRN (12:00)
--- NOTE | 2020-01-30 12:00 | Anesthesiology Consultation ---
Date of Service January 30, 2020 Assessment & Plan (1) Encounter for pre-operative examination: Chart Review Chart Review: Acceptable Risk for Surgery and Patient NOT seen in Pre Admission Testing Consults Requested none ASA ASA3 Proposed Anesthesia Anesthesia Type: General Risk / Benefits Reviewed With: PT / POA / Parent / Guardian, Accepts Plan and Informed Consent Obtained History Surgery Operation Date: 01/30/20 09:40 Proposed Procedures p Incision and Drainage of Abdominal - Arnaud Yudith Hennessy MD Height/Weight Height: 5 ft 1 in Weight: 129.4 kg Allergies Allergy/AdvReac Type Severity Reaction Status Date / Time No Known Allergies Allergy Unverified 01/29/20 22:44 Medications Home Medications Medication Instructions Recorded Confirmed Last Taken fluticasone propion-salmeterol 1 inh INHALATION BID 01/29/20 01/29/20 Unknown [Advair Diskus] metformin 500 mg PO BID 01/29/20 01/29/20 Unknown Active Medications Generic Name Dose Route Start Last Admin Trade Name Freq PRN Reason Stop Dose Admin Fluticasone/Vilanterol 1 puffs 01/30/20 09:00 01/30/20 07:47 Fluticasone/Vilanterol 100/25mcg 14 Puffs/Inhaler INH 02/29/20 08:59 Not Given DAILY YVONNE Lactated Ringer's 1,000 mls @ 125 mls/hr 01/30/20 01:45 01/30/20 10:37 Lr IV 02/29/20 01:44 Infused .Q8H YVONNE Infusion Vancomycin HCl 1,250 mg/ 275 mls @ 200 mls/hr 01/30/20 08:00 01/30/20 09:23 Sodium Chloride IV 02/06/20 07:59 Infused Q8H YVONNE Infusion Protocol Insulin Aspart 0 units 01/30/20 03:30 01/30/20 06:36 Insulin Aspart 100 Units/Ml 3 Ml Pen SC 02/29/20 03:29 2 units Q6 YVONNE Administration Morphine Sulfate 4 mg 01/30/20 01:41 01/30/20 07:26 Morphine Sulfate 4 Mg/Ml 1 Ml Carp\Vial IV 02/13/20 01:40 4 mg Q3H PRN Administration Pain (6,7,8,9,10) Ondansetron HCl 4 mg 01/30/20 01:41 01/30/20 10:09 Ondansetron Inj 2 Mg/Ml 2 Ml Vial IV 02/29/20 01:40 4 mg Q6H PRN Administration Nausea Polyethylene Glycol 17 gm 01/30/20 09:00 01/30/20 07:46 Polyethylene (Miralax) 17 Gm Pack PO 02/29/20 08:59 Not Given BID YVONNE NPO Date Last Intake of Fluids: 01/29/20 Time Last Intake of Fluids: 23:30 Date Last Intake of Solids: 01/29/20 Time Last Intake of Solids: 20:30 Past Medical History Medical History (Updated 01/30/20 @ 12:00 by Morris Collins MD) Asthma Diabetes Exercise / Class Metabolic Activity II 4-5 Yardwork/Stairs/Walk up hill Past Surgical History Surgical History Hx of cholecystectomy Past Anesthesia History No Hx of Anesthesia Complications and No Family Hx of Anesthesia Complications History of PONV No Hx of PONV and No Hx of Motion Sickness Social History Smoking Status: Former smoker tobacco type: e-cigarettes Do You Dip or Chew Tobacco: No Hx Alcohol Use: Yes Alcohol type: wine and hard liquor alcohol intake frequency: holidays/special occasions only Hx Substance Use: Yes substance use type: marijuana Last Used Substance: Days (ago) Physical Exam Vital Signs Last Vital Signs Temp 37 C 01/30/20 11:00 Pulse 80 01/30/20 11:00 Resp 20 01/30/20 11:00 BP 149/72 H 01/30/20 11:00 Pulse Ox 94 01/30/20 11:00 Constitutional + morbidly obese ENMT Mouth: no dentition abnormality Thyromental Distance: > or= 3.5 Finger Breadths Mallampati Class: II Neck normal visual inspection Respiratory normal respiratory effort Auscultation: lungs clear to auscultation bilaterally Cardiovascular Rate/Rhythm: regular rate and regular rhythm Psychiatric Orientation: alert Testing Laboratory Results 01/30/20 07:12 01/30/20 07:12 Urine Color Yellow 01/29/20 22:00 Urine Appearance Slightly Cloudy (Clear) 01/29/20 22:00 Urine pH 5.5 (4.5-7.5) 01/29/20 22:00 Ur Specific [place] >= 1.030 (1.000-1.030) 01/29/20 22:00 Urine Protein 1+ (Negative) H 01/29/20 22:00 Urine Glucose (UA) 2+ (Negative) H 01/29/20 22:00 Urine Ketones Trace (Negative) H 01/29/20 22:00 Urine Nitrite Negative (Negative) 01/29/20 22:00 Ur Leukocyte Esterase Negative (Negative) 01/29/20 22:00 Urine RBC >30 /hpf (0-4) H 01/29/20 22:00 Urine WBC >30 /hpf (0-5) H 01/29/20 22:00 Ur Epithelial Cells >30 /lpf (0-5) H 01/29/20 22:00 01/30/20 01/30/20 06:11 04:18 POC Glucose 184 H 202 H
[2020-01-30] MEDS ORDERED: GLYCOPYRROLATE 0.2 MG/ML VIAL ONE (12:38)
[2020-01-30] MEDS ORDERED: NEOSTIGMINE METHYLSULFATE 5 MG/5 ML SYR ONE (12:38)
[2020-01-30] MEDS ORDERED: ROCURONIUM BROMIDE 10 MG/ML 5 ML VIAL IV ONE (12:38)
--- NOTE | 2020-01-30 12:45 | Post Operative Brief Note ---
PG Immediate Post Op with CF Date of Surgery January 30, 2020 Pre & Post Diagnosis Operation Date: 01/30/20 09:40 Pre-Op Diagnosis: Abdominal Abcess Post-Op Diagnosis: Abdominal Abcess I identified the patient and participated in the time-out.: Yes Procedure Operation Date: 01/30/20 09:40 Actual Procedures p Incision and Drainage of Abdominal Abcess and Abdominal Debridement(Not Applicable) - Arnaud Hennessy MD Surgeon Arnaud Hennessy MD Inventory Control Supervisor joanna ESPINAL Estimated Blood Loss 100 Findings Consistent with Post-Op Diagnosis Specimens Specimen Description: A. Abcess Cavity Culture #1: Abdominal Wall Abcess
[2020-01-30] MEDS ORDERED: SUGAMMADEX SODIUM 200 MG/2 ML VIAL IV ONE (12:48)
--- NOTE | 2020-01-30 12:56 | Operative Report ---
PG Post Operative Report Pre & Post Diagnosis Operation Date: 01/30/20 09:40 Pre-Op Diagnosis: Abdominal Abcess Post-Op Diagnosis: Abdominal Abcess I identified the patient and participated in the time-out.: Yes Procedure Operation Date: 01/30/20 09:40 Actual Procedures p Incision and Drainage of Abdominal Abcess and Abdominal Debridement(Not Applicable) - Arnaud Hennessy MD Patient was brought into the operating theater supine position general endotracheal anesthesia the abdomen lower abdomen and panniculus down to the upper thigh was prepped byline solution properly draped a timeout was had patient identified the panniculus was elevated towards the upper chest where we can identify the area of interest was about a 3 cm by CAT scan of spontaneously draining very fluctuant area we opened this area with a hemostat and then were able to get a purulent material which we cultured for aerobes and anaerobes. At this point I elected to extract the size the area since had some tissue necrosis about 3 cm so side of the skin and subcutaneous tissue so we made elliptical opening around the took that down and down to the subcutaneous fat there was significant amount of inflamed fatty tissue underneath that there we elected just to free it up and remove it to we got the normal fatty tissue I probed with a finger lateral immediately underneath the panniculus there was no other pockets appreciated this point once hemostasis was satisfactory after we had a generalized oozing under control with electrocautery I used a half an old plain packing and placed in the wound and held in place with 3 interrupted silk sutures dressing was applied procedure was tolerated well by the patient estimated blood loss approximately 150 cc mostly use this for inflammation may be exaggeration of the amount loss we irrigated the wound multiple times. Addendum Danuta Alvarez physician assistant scientist was present throughout the case and helped with retraction exposure and wound closure I did call her friend Linda and gave her a generic update for numbers [phone] Surgeon Arnaud Hennessy MD Systems Program Manager joanna ESPINAL Estimated Blood Loss 100 Findings Consistent with Post-Op Diagnosis Specimens debridment of abdominal wall and abscess cavity Description of Procedure merda I attest to the content of the Intraoperative Record and any orders documented therein. Any exceptions are noted below.
[2020-01-30] MEDS: fentaNYL citrate 100 MCG/2 ML VIAL IV PRN ×2 (13:07→13:15)
--- NOTE | 2020-01-30 13:15 | Anesthesiology Progress Note ---
Date of Service January 30, 2020 Anesthesia Post Procedure Vital Signs Vital Signs: Temp Pulse Pulse Pulse Resp BP BP 01/30/20 13:05 37 C 95 H 18 01/30/20 11:00 37 C 80 20 149/72 H 01/30/20 07:07 36.7 C 82 16 139/73 01/30/20 02:25 37 C 94 H 18 135/91 01/30/20 02:01 104 H 18 01/30/20 02:00 88 15 141/71 H 01/30/20 01:50 89 18 01/30/20 01:40 84 17 01/30/20 01:31 86 18 01/30/20 01:30 82 19 168/84 H 01/30/20 01:01 91 H 20 01/30/20 01:00 92 H 20 144/72 H 01/30/20 00:31 92 H 19 01/30/20 00:30 88 19 138/80 01/30/20 00:11 90 18 146/76 H 01/30/20 00:01 90 20 01/30/20 00:00 90 21 146/76 H 01/29/20 23:31 95 H 17 01/29/20 23:30 87 22 154/83 H 01/29/20 23:28 88 16 01/29/20 23:27 93 H 15 159/71 H 01/29/20 23:26 88 18 01/29/20 23:10 85 15 01/29/20 23:01 86 21 01/29/20 23:00 88 19 183/99 H 01/29/20 22:31 91 H 20 01/29/20 22:30 94 H 16 155/87 H 01/29/20 22:29 88 19 01/29/20 22:25 91 H 19 159/105 H 01/29/20 21:54 01/29/20 21:09 36.6 C 93 H 18 181/125 H BP Pulse Ox Pulse Ox 01/30/20 13:05 167/103 H 95 01/30/20 11:00 94 01/30/20 07:07 95 01/30/20 02:25 95 95 01/30/20 02:01 97 01/30/20 02:00 97 01/30/20 01:50 97 01/30/20 01:40 93 01/30/20 01:31 94 01/30/20 01:30 94 01/30/20 01:01 95 01/30/20 01:00 95 01/30/20 00:31 98 01/30/20 00:30 98 01/30/20 00:11 98 01/30/20 00:01 98 01/30/20 00:00 98 01/29/20 23:31 98 01/29/20 23:30 98 01/29/20 23:28 98 01/29/20 23:27 97 01/29/20 23:26 98 01/29/20 23:10 98 01/29/20 23:01 98 01/29/20 23:00 98 01/29/20 22:31 98 01/29/20 22:30 96 01/29/20 22:29 98 01/29/20 22:25 98 01/29/20 21:54 99 01/29/20 21:09 96 Pain Intensity Bilateral Lower Abdomen: Pain Intensity: 8 Right Abdomen: Pain Intensity: 6 Transfer of Care Handoff Completed per policy Notes Mental Status: alert / awake / arousable Patient Amnestic to Procedure: Yes Nausea / Vomiting: adequately controlled Pain: adequately controlled Airway Patency, RR, SpO2: stable & adequate BP & HR: stable & adequate Hydration State: stable & adequate Anesthetic Complications: no major complications apparent
[2020-01-30] MEDS ORDERED: NovoLIN-N (NPH) PER UNIT CHARGE SQ ONE (13:30)
--- NOTE | 2020-01-30 14:29 | Electrocardiogram Report ---
Test Reason : Blood Pressure : / mmHG Vent. Rate : 084 BPM Atrial Rate : 084 BPM P-R Int : 180 ms QRS Dur : 100 ms QT Int : 394 ms P-R-T Axes : 049 -04 032 degrees QTc Int : 465 ms Normal sinus rhythm Left atrial enlargement Minimal voltage criteria for LVH, may be normal variant Borderline ECG No previous ECGs available Confirmed by Rod Kam ([id number]) on 01/30/2020 2:29:12 PM Referred By: REFERRED SELF Confirmed By:Rod Kam
[2020-01-30 14:56] LABS: Estimated Average Glucose 266 mg/dl; Hemoglobin A1C 10.9 % (4.5-5.6)
[2020-01-30] MEDS ORDERED: Nursing to Pharmacy Communication SCH (15:00)
[2020-01-30] MEDS: oxyCODONE/ACETAMINOPHEN 5mg/325mg TAB PO PRN (20:42)
[2020-01-30] MEDS ORDERED: INSULIN GLARGINE SOLOSTAR 100 UNITS/ML 3 ML PEN SC SCH (21:00)
[2020-01-31] MEDS: VANCOMYCIN HCL 1,250 MG in SODIUM CHLORIDE 0.9% 250 ML IV SCH ×3 (00:05→17:16)
[2020-01-31] MEDS: MoRPHine SULFATE 4 MG/ML 1 ML CARP\\VIAL IV PRN ×3 (00:05→15:37)
[2020-01-31] MEDS ORDERED: INSULIN ASPART 100 UNITS/ML 3 ML PEN SC SCH (02:00)
--- NOTE | 2020-01-31 06:36 | Billing Data ---
Date of Service January 31, 2020 Coding Level of Care Code 71088 Initial Inpt Care Lvl 2
[2020-01-31] MEDS ORDERED: VANCOMYCIN TROUGH ONE ×2 (07:30→15:30)
[2020-01-31] MEDS: FLUTICASONE/VILANTEROL 100/25MCG 14 PUFFS/INHALER INH SCH (07:50)
[2020-01-31] MEDS: oxyCODONE/ACETAMINOPHEN 5mg/325mg TAB PO PRN ×3 (07:51→20:45)
[2020-01-31] MEDS: POLYETHYLENE (MIRALAX) 17 GM PACK PO SCH ×2 (07:52→20:46)
[2020-01-31] MEDS: INSULIN ASPART 100 UNITS/ML 3 ML PEN SC SCH ×4 (08:23→21:24)
--- NOTE | 2020-01-31 08:51 | Surgery Progress Note ---
Date of Service January 31, 2020 Assessment & Plan (1) Abdominal wall abscess: POD#1 I&D of abdominal wall abscess VSS and patient afebrile Today patient's dressing was changed at bedside, some bloody drainage on packing otherwise no purulent or active drainage. Wound appears clean and surrounding erythema is much improved Continue on IV vanco while awaiting culture data Diet as tolerates. Reinforce wound dressing as needed with gauze or ABD and medipore tape Will plan on changing dressing again tomorrow and likely consult wound care for evaluation/consideration of wound vac Pt seen and examined with Dr. Hennessy Admission and Anticipated Discharge Date Admission Date: January 30, 2020 Subjective Patient reports some increased pain this AM now that she is awake and moving. Otherwise had a restful night no reports no acute issues. Physical Exam Physical Exam: awake/alert Constitutional: + morbidly obese tearful during dressing change Respiratory: normal respiratory effort Gastrointestinal (Abdomen): Percussion/Palpation: abdomen soft Right abdominal wound is clean, no active drainage, surrounding erythema much improved, tender to palpation Results & Data ([facility]) Vital Signs (Past 12 Hours) Vital Signs Temp Pulse Resp BP BP Pulse Ox Pulse Ox 01/31/20 07:17 37.1 C 89 20 155/94 H 93 01/31/20 00:05 95 01/30/20 23:00 37.0 C 74 18 121/86 95 01/30/20 20:56 37.2 C 84 18 169/89 H 94 PG Care Time/CCT Total # of Minutes Spent Total Time Spent with Patient: Total time spent is greater than 50% in coordination of care (as documented) at patient's floor/unit and/or counseling patient: Coding Level of Care Code None Diagnoses Abdominal wall abscess L02.211
[2020-01-31] MEDS ORDERED: INSULIN GLARGINE SOLOSTAR 100 UNITS/ML 3 ML PEN SC ONE (09:00)
--- NOTE | 2020-01-31 15:35 | Pharmacy Report ---
Pharmacy Glycemic Short Note 2 - Date of Service January 31, 2020 - Glycemic Short BSG Results (Last 24 hours): 01/30/20 01/30/20 01/31/20 17:27 20:32 02:01 POC Glucose 216 H 161 H 139 H 01/31/20 01/31/20 08:21 12:00 POC Glucose 194 H 254 H OUTPATIENT ANTIDIABETIC REGIMEN: * Metformin 500 mg PO BIDM * HbA1c = 10.9% on 01/30/20 ASSESSMENT: 01/30: * Patient received total of 71 units of insulin yesterday; 50 units basal (including 30 units of NPH to cover Dexamethasone)+ 21 units bolus. * Fasting BSG this AM was elevated at 194 mg/dl this AM. * Lantus 12 units ordered this AM and HS dose scale ordered based on BSGs. * Dexamethasone was not re-ordered, no more NPH doses ordered today. * Pre-lunch BSG was 254 mg/dl, however AM dose of Lantus was given slightly late and is not reflected in this lunch BSG. * Novolog parameters were continued. 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 wall cellulitis with possible need for I&D * Patient seen by surgery this morning and will have I&D - currently NPO * BSGs of 202 and 184 mg/dL so far * Will await A1c result and likely order basal insulin postoperatively * Currently only ordered correction factor of 25 with no carb coverage - will address postoperatively * Patient received 4 mg IV dexamethasone perioperatively * Postoperative BSG of 253 mg/dL * Will tighten Novolog, add carb ratio, give one-time NPH 30 units (~0.4 unit/kg adjusted body weight) PLAN FOR INPATIENT GLYCEMIC CONTROL: * Hold outpatient oral diabetes medications * Basal insulin * Lantus 12 units SQ this AM. * Lantus 10-20 units scale SC HS based on BSGs * Bolus insulin * NovoLog per scale ACHS or Q6hrs while NPO * Goal Range: Low 110 mg/dL - High 140 mg/dL * Correction Factor: 20 mg/dL/unit * Nutritional / Prandial insulin per carb ratio of 1 unit per 7 grams CHO consumed PLAN FOR DISCHARGE: * HbA1c = 10.9% * A1c indicates poor glycemic control as out-patient. * Recommend increasing Metformin dose to ER 1000 mg PO BID with meals to start with. * Follow up with outpatient provider for further diabetes management, lifestyle changes.
--- NOTE | 2020-01-31 16:46 | Pharmacy Report ---
Pharmacy Abx Dose Short Note - Date of Service January 31, 2020 - Assessment & Plan Assessment 29 year old F receiving vancomycin for treatment of abscess Day # 3 of antimicrobial therapy. Plan Vancomycin * Trough level of 8.5 mcg/mL is subtherapeutic * Change to 1500 mg IV every 8 hours (expect accumulation so will increase cautiously) * Goal trough level for abscess : ~15 mcg/mL * Trough ordered for: 02/01/20 prior to 1800 dose Pharmacy will continue to follow and will adjust dose/frequency as necessary. Thank you.
[2020-01-31] MEDS: VANCOMYCIN HCL 1,500 MG in SODIUM CHLORIDE 0.9% 500 ML IV SCH (17:34)
--- NOTE | 2020-01-31 20:57 | Hospitalist Progress Note ---
Date of Service January 31, 2020 Assessment & Plan (1) Abdominal wall cellulitis: Patient is a 29-year-old female with a past medical history of obesity, diabetes mellitus, asthma, cholecystectomy, and lipoma removal who presents for evaluation of suspected infection with associated abdominal pain. #Abdominal wall pain secondary to cellulitis complicated by diabetes in the setting of obesity and asthma Complicated situation due to lack of insurance.CM working on this. Patient is also not from area as she was visiting her sister SP incision and drainage of abdominal wall abscess. Patient is having daily dressing changes. May require wound vac. Awaiting final cultures. continue current antibiotics. (2) Obesity: recommend life style changes. Patient will need to get established with a pcp to help monitor her chronic co morbidities (3) Diabetes: glycemic consult (4) Asthma: resume home meds stable Admission and Anticipated Discharge Date Admission Date: January 30, 2020 Subjective Patient reports having moderate to severe pain near incision site due to wound packing. She reports she has required IV pain medicine to control it. Currently she feels pain is controlled. Review of Systems Review of Systems: All systems reviewed & are unremarkable except as noted in HPI & below Physical Exam Physical Exam: General: Obese female in no acute distress. HEENT: Normocephalic atraumatic Neck: Normal to visual inspection, trachea midline Cardiac: Regular rate and rhythm, normal S1, normal S2, negative pedal edema, negative calf tenderness Respiratory: Clear to auscultation bilaterally GI: Lower quadrants are soft and tender to palpation, soft abdomen is protuber ant MSK: strength 5/5 in all extremities Skin: No erythema noted outside of area that is covered by dressing. Neuro: Alert and oriented x4 Psych: Calm and cooperative Results & Data Results & Data ([facility]) Vital Signs (Past 12 Hours) Vital Signs Temp Pulse Resp BP Pulse Ox 01/31/20 16:16 37.0 C 69 17 162/94 H 98 PG Care Time/CCT Total # of Minutes Spent Total Time Spent with Patient: Total time spent is greater than 50% in coordination of care (as documented) at patient's floor/unit and/or counseling patient: Coding Level of Care Code 87070 Subseq Obs Care Lvl 3 Diagnoses Abdominal wall cellulitis L03.311 Obesity E66.9 Diabetes E11.9 Asthma J45.909 Time Spent (min) 35
[2020-01-31] MEDS: INSULIN GLARGINE SOLOSTAR 100 UNITS/ML 3 ML PEN SC SCH (21:25)
[2020-02-01] MEDS: VANCOMYCIN HCL 1,500 MG in SODIUM CHLORIDE 0.9% 500 ML IV SCH ×3 (01:17→19:07)
[2020-02-01] MEDS: oxyCODONE/ACETAMINOPHEN 5mg/325mg TAB PO PRN ×4 (06:25→20:22)
[2020-02-01] MEDS: MoRPHine SULFATE 2 MG/ML CARP IV PRN ×3 (07:53→17:01)
--- NOTE | 2020-02-01 08:18 | Surgery Progress Note ---
Date of Service February 01, 2020 Assessment & Plan (1) Abdominal wall abscess: Cultures are still pending as far sensitivities from the purulent drainage that was appreciated in culture during the surgery This point I discussed with the patient to have the wound clinic the VAC system may be applied tomorrow and certainly she can be discharged hopefully by that time we have the final sensitivities on the intraoperative cultures so appropriate antibiotics could be administered possibly for another 10 days as outpatient The patient resides in [place] was here visiting she is not sure whether or not she will be staying in town or going back once discharged Present on Admission?: Yes Admission and Anticipated Discharge Date Admission Date: January 30, 2020 Subjective She feels a bit better overall has been able to ambulate without much issues mostly discomfort that she has as we change her dressing Physical Exam Physical Exam: The abdomen is benign the cellulitis that she had in the panniculus is resolving considerably barely appreciated at this time the debridement site the packing was removed it is closing it quickly there is no evidence of any purulent drainage to serosanguineous and the area was repacked Results & Data ([facility]) Vital Signs (Past 12 Hours) Vital Signs Temp Pulse Resp BP Pulse Ox 02/01/20 07:32 36.8 C 71 18 158/76 H 92 01/31/20 23:05 36.9 C 69 18 140/82 99 PG Care Time/CCT Total # of Minutes Spent Total Time Spent with Patient: Total time spent is greater than 50% in coordination of care (as documented) at patient's floor/unit and/or counseling patient: Coding Level of Care Code None Diagnoses Abdominal wall abscess L02.211
[2020-02-01] MEDS ORDERED: MoRPHine SULFATE 4 MG/ML 1 ML CARP\\VIAL IV STA (08:24)
[2020-02-01] MEDS: INSULIN ASPART 100 UNITS/ML 3 ML PEN SC SCH ×4 (09:35→20:46)
[2020-02-01] MEDS: INSULIN GLARGINE SOLOSTAR 100 UNITS/ML 3 ML PEN SC SCH ×2 (09:36→20:45)
[2020-02-01] MEDS: FLUTICASONE/VILANTEROL 100/25MCG 14 PUFFS/INHALER INH SCH (09:37)
[2020-02-01] MEDS: POLYETHYLENE (MIRALAX) 17 GM PACK PO SCH ×2 (09:37→20:22)
--- NOTE | 2020-02-01 14:28 | Hospitalist Progress Note ---
Date of Service February 01, 2020 Assessment & Plan (1) Abdominal wall cellulitis: S/p incision and drainage of abdominal wall abscess on 01/29. - Patient is having daily dressing changes. - May require wound vac; will get wound apprentice embalmer. - Awaiting final cultures. - Continue vancomycin (2) Diabetes: A1c was 10.9% this admission. - Glycemic pharmacist consulted - Presently on long-acting and sliding scale insulin - Will discharge on metformin and likely a sulfonylurea as well. (3) Obesity: BMI 53. - Recommend life style changes. - Patient will need to get established with a pcp to help monitor her chronic co morbidities. (4) Asthma: No breathing issues today. - Continue Breo - DuoNebs PRN (5) DVT prophylaxis: SCDs - Low DVT risk per admission calculator Admission and Anticipated Discharge Date Admission Date: February 01, 2020 Subjective Doing well. Pain is well-controlled at present. No major concerns. Reports no fevers/chills, chest pain, shortness of breath, nausea, or vomiting. Physical Exam Constitutional: WD/WN, vitals as above Eyes: EOM intact bilaterally; no conjunctival abnormality ENMT: external ear and nose normal, oropharynx normal Neck: trachea midline, no thyromegaly normal visual inspection Respiratory: normal respiratory effort, lungs clear to auscultation no respiratory distress Cardiovascular: RRR, no murmur, no edema Gastrointestinal (Abdomen): Inspection/Auscultation: normal bowel sounds; + abdomen abnormal to inspection (Adominal bandages) and abdomen not distended Percussion/Palpation: abdomen soft Musculoskeletal: no cyanosis or clubbing, extremities motor strength 5/5 Skin: no rashes, warm and dry Neurologic: moves all extremities and awake Psychiatric: Orientation: alert, oriented to person and cooperative Results & Data Results & Data ([facility]) Vital Signs (Past 12 Hours) Vital Signs Temp Pulse Resp BP Pulse Ox 02/01/20 07:32 36.8 C 71 18 158/76 H 92 PG Care Time/CCT Total # of Minutes Spent Total Time Spent with Patient: Total time spent is greater than 50% in coordination of care (as documented) at patient's floor/unit and/or counseling patient: Coding Level of Care Code 26009 Subseq Hosp Care Lvl 2 Diagnoses Abdominal wall cellulitis L03.311 Diabetes E11.9 Obesity E66.9 Asthma J45.909 DVT prophylaxis Z29.9
--- NOTE | 2020-02-01 15:02 | Pharmacy Report ---
Pharmacy Glycemic Short Note 2 - Date of Service February 01, 2020 - Glycemic Short BSG Results (Last 24 hours): 01/31/20 01/31/20 02/01/20 17:17 20:52 08:08 POC Glucose 158 H 173 H 145 H 02/01/20 12:00 POC Glucose 206 H OUTPATIENT ANTIDIABETIC REGIMEN: * Metformin 500 mg PO BIDM * HbA1c = 10.9% on 01/30/20 ASSESSMENT: 01/31: * Patient received total of 66 units of insulin yesterday; 32 units basal and 34 units bolus. * Fasting BSG today was 145 mg/dl. Lantus dose increased this AM. Continued HS dose. * Pre-lunch BSG today was elevated. Novolog parameters were tightened with lunch. 01/30: * Patient received total of 71 units of insulin yesterday; 50 units basal (including 30 units of NPH to cover Dexamethasone)+ 21 units bolus. * Fasting BSG this AM was elevated at 194 mg/dl this AM. * Lantus 12 units ordered this AM and HS dose scale ordered based on BSGs. * Dexamethasone was not re-ordered, no more NPH doses ordered today. * Pre-lunch BSG was 254 mg/dl, however AM dose of Lantus was given slightly late and is not reflected in this lunch BSG. * Novolog parameters were continued. 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 with possible need for I&D * Patient seen by surgery this morning and will have I&D - currently NPO * BSGs of 202 and 184 mg/dL so far * Will await A1c result and likely order basal insulin postoperatively * Currently only ordered correction factor of 25 with no carb coverage - will address postoperatively * Patient received 4 mg IV dexamethasone perioperatively * Postoperative BSG of 253 mg/dL * Will tighten Novolog, add carb ratio, give one-time NPH 30 units (~0.4 unit/kg adjusted body weight) PLAN FOR INPATIENT GLYCEMIC CONTROL: * Hold outpatient oral diabetes medications * Basal insulin: increased * Lantus 15 units SQ this AM. * Lantus 10-20 units scale SC HS based on BSGs * Bolus insulin: tightened * NovoLog per scale ACHS or Q6hrs while NPO * Goal Range: Low 110 mg/dL - High 140 mg/dL * Correction Factor: 15 mg/dL/unit * Nutritional / Prandial insulin per carb ratio of 1 unit per 6 grams CHO consumed PLAN FOR DISCHARGE: * HbA1c = 10.9% * A1c indicates poor glycemic control as out-patient. * Recommend increasing Metformin dose to ER 1000 mg PO BID with meals to start with. * Follow up with outpatient provider for further diabetes management, lifestyle changes.
[2020-02-01] MEDS ORDERED: VANCOMYCIN TROUGH ONE (17:30)
--- NOTE | 2020-02-01 21:19 | Communication Note ---
Date of Service: February 01, 2020 Discussed with Pharmacy difficulties with getting adequate CARLO/Vancomycin Trough levels for therapeutic effect. This is most likely related to large body habitus/BMI 54. Consult placed and agree to switch to Daptomycin.
[2020-02-01] MEDS: DAPTOmycin 500 MG in SYRINGE 0 ML IV SCH (23:52)
[2020-02-02] MEDS: oxyCODONE/ACETAMINOPHEN 5mg/325mg TAB PO PRN ×5 (02:24→21:28)
[2020-02-02 06:24] LABS: Hematocrit (blood only) 39.1 % (37-47); Hemoglobin 12.6 g/dL (12.0-16.0); Mean Corpuscular Hemoglobin 27.3 pg (25-34); Mean Corpuscular Hgb Conc 32.2 g/dL (32-36); Mean Corpuscular Volume 84.8 fL (80-100); Mean Platelet Volume 10.7 fL (7.4-10.4); Platelet Count 316 K/uL (130-400); RDW Coefficient of Variation 13.6 % (11.5-14.5); Red Blood Count 4.61 M/uL (4.2-5.4); White Blood Count 10.03 K/uL (4.8-10.8)
[2020-02-02 06:55] LABS: BUN Creatinine Ratio 13.4 (10-20); Calcium 8.5 mg/dl (8.5-10.1); Creatinine Clr Calc Pharmacy 188.2 ml/min; Magnesium 2.2 mg/dl (1.8-2.4); Potassium 3.8 mmol/L (3.5-5.1)
[2020-02-02] MEDS: FLUTICASONE/VILANTEROL 100/25MCG 14 PUFFS/INHALER INH SCH (07:29)
[2020-02-02] MEDS: POLYETHYLENE (MIRALAX) 17 GM PACK PO SCH ×3 (07:29→21:39)
[2020-02-02] MEDS: INSULIN ASPART 100 UNITS/ML 3 ML PEN SC SCH ×4 (07:31→21:29)
[2020-02-02] MEDS: INSULIN GLARGINE SOLOSTAR 100 UNITS/ML 3 ML PEN SC SCH ×3 (07:35→21:28)
--- NOTE | 2020-02-02 08:27 | Surgery Progress Note ---
Date of Service February 02, 2020 Assessment & Plan (1) Abdominal wall abscess: Cultures from intraoperative sample are pending at this time Plan is to have the wound nurse check the patient and place a VAC system if appropriate and then discharge the patient on p.o. antibiotics pending the final sensitivities otherwise it may be worthwhile to use Bactrim DS Not sure if the patient is going to go back to [facility] or stay here locally we will be glad to follow her if she remains here locally Present on Admission?: Yes Admission and Anticipated Discharge Date Admission Date: February 01, 2020 Subjective Patient is able to move around much better abdominal wall discomfort is decreased Physical Exam Physical Exam: Laying comfortable bed without any issues I did not take the dressing off the lower abdomen operative site since wound nurse was consulted I would leave it up to her to change it and advise regarding VAC system Results & Data ([facility]) Vital Signs (Past 12 Hours) Vital Signs Temp Pulse Resp BP BP Pulse Ox 02/02/20 07:52 36.7 C 68 16 151/78 H 98 02/01/20 23:49 37.0 C 73 18 110/76 97 PG Care Time/CCT Total # of Minutes Spent Total Time Spent with Patient: Total time spent is greater than 50% in coordination of care (as documented) at patient's floor/unit and/or counseling patient: Coding Level of Care Code None Diagnoses Abdominal wall abscess L02.211
--- NOTE | 2020-02-02 09:09 | Pharmacy Report ---
Pharmacy Glycemic Short Note 2 - Date of Service February 02, 2020 - Glycemic Short BSG Results (Last 24 hours): 02/01/20 02/01/20 02/01/20 12:00 17:04 20:45 Glucose POC Glucose 206 H 121 H 134 H 02/02/20 02/02/20 05:58 07:34 Glucose 121 H POC Glucose 121 H OUTPATIENT ANTIDIABETIC REGIMEN: * Metformin 500 mg PO BIDM * HbA1c = 10.9% on 01/30/20 ASSESSMENT: 02/01: * BSGs reasonably well controlled yesterday, 145, 206, 121, and 134 mg/dL * Patient received total of 55 units of insulin yesterday; 25 units basal and 30 units of prandial/correctional * Fasting BSG today is 121 mg/dL - will schedule set Lantus dose BID * Vancomycin changed to daptomycin to continue treatment for abdominal wall cellulitis 01/29: * NR is a 29 year old female 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 for IV antibiotic treatment of abdominal wall cellulitis with possible need for I&D * Patient seen by surgery this morning and will have I&D - currently NPO * BSGs of 202 and 184 mg/dL so far * Will await A1c result and likely order basal insulin postoperatively * Currently only ordered correction factor of 25 with no carb coverage - will address postoperatively * Patient received 4 mg IV dexamethasone perioperatively * Postoperative BSG of 253 mg/dL * Will tighten Novolog, add carb ratio, give one-time NPH 30 units (~0.4 unit/kg adjusted body weight) PLAN FOR INPATIENT GLYCEMIC CONTROL: * Hold outpatient oral diabetes medications * Basal insulin: - increase * Lantus 15 units SQ BID * Bolus insulin: continue * NovoLog per scale ACHS or Q6hrs while NPO * Goal Range: Low 110 mg/dL - High 140 mg/dL * Correction Factor: 15 mg/dL/unit * Nutritional / Prandial insulin per carb ratio of 1 unit per 6 grams CHO consumed PLAN FOR DISCHARGE: * See glycemic note from 01/31/20
[2020-02-02] MEDS: ONDANSETRON INJ 2 MG/ML 2 ML VIAL IV PRN (09:33)
[2020-02-02] MEDS: MoRPHine SULFATE 4 MG/ML 1 ML CARP\\VIAL IV PRN (13:19)
--- NOTE | 2020-02-02 13:50 | Hospitalist Progress Note ---
Date of Service February 02, 2020 Assessment & Plan (1) Abdominal wall cellulitis: S/p incision and drainage of abdominal wall abscess on 01/29. - Patient is having daily dressing changes. 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 - Awaiting final cultures. - Continue vancomycin -> Will likely switch to Bactrim/Keflex for PO to finish course. Will likely treat for 10 days post I&D. (2) Diabetes: A1c was 10.9% this admission. - Glycemic pharmacist consulted - Presently on long-acting and sliding scale insulin - Will discharge on metformin and likely a sulfonylurea as well. (3) Obesity: BMI 53. - Recommend life style changes. - Patient will need to get established with a pcp to help monitor her chronic co morbidities. (4) Asthma: No breathing issues today. - Continue Breo - DuoNebs PRN (5) DVT prophylaxis: SCDs - Low DVT risk per admission calculator Admission and Anticipated Discharge Date Admission Date: February 01, 2020 Subjective Dispirited today. She feels like there is a lot going on. Reports no fevers/chills, chest pain, shortness of breath, abdominal pain, nausea, or vomiting. Physical Exam Constitutional: WD/WN, vitals as above Eyes: EOM intact bilaterally; no conjunctival abnormality ENMT: external ear and nose normal, oropharynx normal Neck: trachea midline, no thyromegaly normal visual inspection Respiratory: normal respiratory effort, lungs clear to auscultation no respiratory distress Cardiovascular: RRR, no murmur, no edema Gastrointestinal (Abdomen): Inspection/Auscultation: normal bowel sounds; + abdomen abnormal to inspection (Adominal bandages) and abdomen not distended Percussion/Palpation: abdomen soft Musculoskeletal: no cyanosis or clubbing, extremities motor strength 5/5 Skin: no rashes, warm and dry Neurologic: moves all extremities and awake Psychiatric: Orientation: alert, oriented to person and cooperative Results & Data Results & Data ([facility]) Vital Signs (Past 12 Hours) Vital Signs Temp Pulse Resp BP Pulse Ox 02/02/20 07:52 36.7 C 68 16 151/78 H 98 PG Care Time/CCT Total # of Minutes Spent Total Time Spent with Patient: Total time spent is greater than 50% in coordination of care (as documented) at patient's floor/unit and/or counseling patient: Coding Level of Care Code 41531 Subseq Hosp Care Lvl 2 Diagnoses Abdominal wall cellulitis L03.311 Diabetes E11.9 Obesity E66.9 Asthma J45.909 DVT prophylaxis Z29.9
[2020-02-02] MEDS: metroNIDAZOLE 500 MG/100 ML BAG IV SCH ×2 (17:30→23:55)
[2020-02-02] MEDS: DAPTOmycin 500 MG in SYRINGE 0 ML IV SCH ×2 (22:35→23:24)
[2020-02-02] MEDS: MoRPHine SULFATE 2 MG/ML CARP IV PRN (23:50)
[2020-02-03] MEDS: oxyCODONE/ACETAMINOPHEN 5mg/325mg TAB PO PRN ×3 (02:28→14:22)
[2020-02-03] MEDS: INSULIN GLARGINE SOLOSTAR 100 UNITS/ML 3 ML PEN SC SCH ×2 (08:41→21:23)
[2020-02-03] MEDS: INSULIN ASPART 100 UNITS/ML 3 ML PEN SC SCH ×4 (08:42→21:23)
[2020-02-03] MEDS: FLUTICASONE/VILANTEROL 100/25MCG 14 PUFFS/INHALER INH SCH (08:46)
[2020-02-03] MEDS: metroNIDAZOLE 500 MG/100 ML BAG IV SCH ×3 (08:46→23:01)
[2020-02-03] MEDS: POLYETHYLENE (MIRALAX) 17 GM PACK PO SCH ×2 (08:46→21:23)
[2020-02-03] MEDS: MoRPHine SULFATE 4 MG/ML 1 ML CARP\\VIAL IV PRN (15:33)
--- NOTE | 2020-02-03 15:44 | Hospitalist Progress Note ---
Date of Service February 03, 2020 Assessment & Plan (1) Abdominal wall cellulitis: S/p incision and drainage of abdominal wall abscess on 01/29. - Patient is having daily dressing changes. - Cannot get wound vac for cost; working with [facility]. - Continue dapto & metronidazole. Wound culture growing Peptostreptococcus. Blood culture growing an anaerobic Gram(+) cocci, so possibly the same, but it is very slow growing and not having much success. - ID consulted today - Awaiting recs (2) Diabetes: A1c was 10.9% this admission. - Glycemic pharmacist consulted - Presently on long-acting and sliding scale insulin - Will discharge on metformin and likely a sulfonylurea as well. (3) Obesity: BMI 53. - Recommend life style changes. - Patient will need to get established with a PCP to help monitor her chronic co morbidities. (4) Asthma: No breathing issues today. - Continue Breo - DuoNebs PRN (5) DVT prophylaxis: SCDs - Low DVT risk per admission calculator Admission and Anticipated Discharge Date Admission Date: February 01, 2020 Subjective Stable today. Pain in the abdomen is stable. Reports no fevers/chills, chest pain, shortness of breath, abdominal pain, nausea, or vomiting. Physical Exam Constitutional: WD/WN, vitals as above Eyes: EOM intact bilaterally; no conjunctival abnormality ENMT: external ear and nose normal, oropharynx normal Neck: trachea midline, no thyromegaly normal visual inspection Respiratory: normal respiratory effort, lungs clear to auscultation no respiratory distress Cardiovascular: RRR, no murmur, no edema Gastrointestinal (Abdomen): Inspection/Auscultation: normal bowel sounds; + abdomen abnormal to inspection (Adominal bandages) and abdomen not distended Percussion/Palpation: abdomen soft Musculoskeletal: no cyanosis or clubbing, extremities motor strength 5/5 Skin: no rashes, warm and dry Neurologic: moves all extremities and awake Psychiatric: Orientation: alert, oriented to person and cooperative Results & Data Results & Data ([facility]) Vital Signs (Past 12 Hours) Vital Signs Temp Pulse Resp BP Pulse Ox 02/03/20 07:05 36.8 C 67 19 139/82 95 PG Care Time/CCT Total # of Minutes Spent Total Time Spent with Patient: Total time spent is greater than 50% in coordination of care (as documented) at patient's floor/unit and/or counseling patient: Coding Level of Care Code 38417 Subseq Hosp Care Lvl 3 Diagnoses Abdominal wall cellulitis L03.311 Diabetes E11.9 Obesity E66.9 Asthma J45.909 DVT prophylaxis Z29.9
[2020-02-03] MEDS: ONDANSETRON INJ 2 MG/ML 2 ML VIAL IV PRN (18:16)
[2020-02-03] MEDS ORDERED: ONDANSETRON INJ 2 MG/ML 2 ML VIAL IV STA (21:12)
[2020-02-03] MEDS: DAPTOmycin 500 MG in SYRINGE 0 ML IV SCH (23:01)
[2020-02-04] MEDS: oxyCODONE/ACETAMINOPHEN 5mg/325mg TAB PO PRN ×3 (01:54→19:59)
[2020-02-04 06:30] LABS: Hematocrit (blood only) 36.5 % (37-47); Hemoglobin 11.5 g/dL (12.0-16.0); Mean Corpuscular Hemoglobin 26.9 pg (25-34); Mean Corpuscular Hgb Conc 31.5 g/dL (32-36); Mean Corpuscular Volume 85.5 fL (80-100); Mean Platelet Volume 11.1 fL (7.4-10.4); Platelet Count 304 K/uL (130-400); RDW Coefficient of Variation 13.8 % (11.5-14.5); RDW Standard Deviation 42.1 fL (36.4-46.3); Red Blood Count 4.27 M/uL (4.2-5.4)
--- NOTE | 2020-02-04 06:48 | Surgery Progress Note ---
Date of Service February 04, 2020 Assessment & Plan (1) Abdominal wall abscess: Infectious disease was consulted and I will leave further recommendations to them regarding antibiotic therapy Regarding the wound there is nothing surgical needs to be done in wound nurses center and plans underway to procure with a VAC system if possible with this there is no need to follow-up with us unless new issues arise Present on Admission?: Yes Admission and Anticipated Discharge Date Admission Date: February 01, 2020 Subjective Feels much better can be up and around with minimal discomfort she is still has some discomfort and touching the area in the panniculus Physical Exam Physical Exam: Cellulitis that she had before that extended beyond our site of excision necrotic tissue is resolved I did not change the dressing today since wound clinic is seeing her Results & Data ([facility]) Vital Signs (Past 12 Hours) Vital Signs Temp Pulse Resp BP Pulse Ox 02/03/20 23:07 37.1 C 71 16 136/81 97 PG Care Time/CCT Total # of Minutes Spent Total Time Spent with Patient: Total time spent is greater than 50% in coordination of care (as documented) at patient's floor/unit and/or counseling patient: Coding Level of Care Code None Diagnoses Abdominal wall abscess L02.211
[2020-02-04] MEDS: ONDANSETRON INJ 2 MG/ML 2 ML VIAL IV PRN ×3 (07:56→17:48)
[2020-02-04] MEDS: POLYETHYLENE (MIRALAX) 17 GM PACK PO SCH ×2 (08:47→20:00)
[2020-02-04] MEDS: FLUTICASONE/VILANTEROL 100/25MCG 14 PUFFS/INHALER INH SCH (08:47)
[2020-02-04] MEDS: metroNIDAZOLE 500 MG/100 ML BAG IV SCH (08:52)
[2020-02-04] MEDS: INSULIN ASPART 100 UNITS/ML 3 ML PEN SC SCH ×4 (08:56→21:50)
[2020-02-04] MEDS: INSULIN GLARGINE SOLOSTAR 100 UNITS/ML 3 ML PEN SC SCH ×2 (08:57→21:50)
--- NOTE | 2020-02-04 09:09 | Pharmacy Report ---
Pharmacy Glycemic Short Note 2 - Date of Service February 04, 2020 - Glycemic Short BSG Results (Last 24 hours): 02/03/20 02/03/20 02/03/20 12:07 17:09 20:55 Glucose POC Glucose 158 H 147 H 155 H 02/04/20 02/04/20 05:22 07:49 Glucose Cancelled POC Glucose 114 H OUTPATIENT ANTIDIABETIC REGIMEN: * Metformin 500 mg PO BIDM * HbA1c = 10.9% on 01/30/20 ASSESSMENT: 02/03: * BSGs very well controlled yesterday, 131, 158, 147, and 155 mg/dL * Patient received total of 47 units (30 units of Lantus, 17 units of prandial/correctional) * No changes to Novolog today * Fasting BSG today is 114 mg/dL - continue currently ordered Lantus * Daptomycin/metronidazole changed to Unasyn 3 g IV q6h 01/29: * 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 abdominal wall cellulitis with possible need for I&D * Patient seen by surgery this morning and will have I&D - currently NPO * BSGs of 202 and 184 mg/dL so far * Will await A1c result and likely order basal insulin postoperatively * Currently only ordered correction factor of 25 with no carb coverage - will address postoperatively * Patient received 4 mg IV dexamethasone perioperatively * Postoperative BSG of 253 mg/dL * Will tighten Novolog, add carb ratio, give one-time NPH 30 units (~0.4 unit/kg adjusted body weight) PLAN FOR INPATIENT GLYCEMIC CONTROL: * Hold outpatient oral diabetes medications * Basal insulin: - continue * Lantus 15 units SQ BID * Bolus insulin: continue * NovoLog per scale ACHS or Q6hrs while NPO * Goal Range: Low 110 mg/dL - High 140 mg/dL * Correction Factor: 15 mg/dL/unit * Nutritional / Prandial insulin per carb ratio of 1 unit per 6 grams CHO consumed PLAN FOR DISCHARGE: * See glycemic note from 01/31/20
[2020-02-04 09:27] LABS: BUN Creatinine Ratio 11.9 (10-20); Calcium 8.7 mg/dl (8.5-10.1); Creatinine Clr Calc Pharmacy 162.2 ml/min; Est GFR (African American) 139.1; Magnesium 2.1 mg/dl (1.8-2.4)
[2020-02-04] MEDS: AMPICILLIN/SULBACTAM SOD 3,000 MG in 0.9 % SODIUM CHLORIDE 100 ML IV SCH ×2 (13:31→17:48)
[2020-02-04] MEDS: MoRPHine SULFATE 4 MG/ML 1 ML CARP\\VIAL IV PRN (16:33)
--- NOTE | 2020-02-04 18:51 | Hospitalist Progress Note ---
Date of Service February 04, 2020 Assessment & Plan (1) Abdominal wall cellulitis: S/p incision and drainage of abdominal wall abscess on 01/29. - Patient is having daily dressing changes. - Cannot get wound vac for cost; working with [facility]. - Continue dapto & metronidazole. Wound culture growing Peptostreptococcus anaerobius. Blood culture grew Finegoldia magna. - ID consulted on 02/02 -> Plan for Unasyn for now, then switch to Augmentin if improving. Will monitor WBC count. (2) Diabetes: A1c was 10.9% this admission. - Glycemic pharmacist consulted - Presently on long-acting and sliding scale insulin - Will discharge on metformin and likely a sulfonylurea as well. (3) Obesity: BMI 53. - Recommend life style changes. - Patient will need to get established with a PCP to help monitor her chronic co morbidities. (4) Asthma: No breathing issues today. - Continue Breo - DuoNebs PRN (5) DVT prophylaxis: SCDs - Low DVT risk per admission calculator Admission and Anticipated Discharge Date Admission Date: February 01, 2020 Subjective Nauseated today. Threw up last night. Physical Exam Constitutional: WD/WN, vitals as above Eyes: EOM intact bilaterally; no conjunctival abnormality ENMT: external ear and nose normal, oropharynx normal Neck: trachea midline, no thyromegaly normal visual inspection Respiratory: normal respiratory effort, lungs clear to auscultation no respiratory distress Cardiovascular: RRR, no murmur, no edema Gastrointestinal (Abdomen): Inspection/Auscultation: normal bowel sounds; + abdomen abnormal to inspection (Adominal bandages) and abdomen not distended Percussion/Palpation: abdomen soft Musculoskeletal: no cyanosis or clubbing, extremities motor strength 5/5 Skin: no rashes, warm and dry Neurologic: moves all extremities and awake Psychiatric: Orientation: alert, oriented to person and cooperative Results & Data Results & Data ([facility]) Vital Signs (Past 12 Hours) Vital Signs Temp Pulse Resp BP Pulse Ox 02/04/20 14:43 36.8 C 58 L 19 133/83 97 02/04/20 07:23 36.6 C 78 20 133/81 97 PG Care Time/CCT Total # of Minutes Spent Total Time Spent with Patient: Total time spent is greater than 50% in coordination of care (as documented) at patient's floor/unit and/or counseling patient: Coding Level of Care Code 97181 Subseq Hosp Care Lvl 2 Diagnoses Abdominal wall cellulitis L03.311 Diabetes E11.9 Obesity E66.9 Asthma J45.909 DVT prophylaxis Z29.9
[2020-02-05] MEDS: AMPICILLIN/SULBACTAM SOD 3,000 MG in 0.9 % SODIUM CHLORIDE 100 ML IV SCH ×3 (00:12→11:46)
[2020-02-05] MEDS: ONDANSETRON INJ 2 MG/ML 2 ML VIAL IV PRN (00:19)
[2020-02-05] MEDS: FLUTICASONE/VILANTEROL 100/25MCG 14 PUFFS/INHALER INH SCH (08:46)
[2020-02-05] MEDS: POLYETHYLENE (MIRALAX) 17 GM PACK PO SCH (08:47)
[2020-02-05] MEDS: oxyCODONE/ACETAMINOPHEN 5mg/325mg TAB PO PRN ×2 (08:49→13:37)
[2020-02-05 08:50] LABS: Hematocrit (blood only) 37.3 % (37-47); Hemoglobin 11.8 g/dL (12.0-16.0); Mean Corpuscular Hgb Conc 31.6 g/dL (32-36); Mean Corpuscular Volume 85.4 fL (80-100); Mean Platelet Volume 10.2 fL (7.4-10.4); Platelet Count 309 K/uL (130-400); RDW Coefficient of Variation 13.7 % (11.5-14.5); RDW Standard Deviation 42.5 fL (36.4-46.3); Red Blood Count 4.37 M/uL (4.2-5.4); White Blood Count 9.39 K/uL (4.8-10.8)
[2020-02-05] MEDS: INSULIN GLARGINE SOLOSTAR 100 UNITS/ML 3 ML PEN SC SCH (08:55)
[2020-02-05] MEDS: INSULIN ASPART 100 UNITS/ML 3 ML PEN SC SCH ×2 (08:55→13:13)
[2020-02-05 09:22] LABS: BUN Creatinine Ratio 12.4 (10-20); Calcium 8.7 mg/dl (8.5-10.1); Creatinine Clr Calc Pharmacy 178.7 ml/min; Est GFR (African American) 143.6; Est GFR (Non-African American) 123.9; Magnesium 2.1 mg/dl (1.8-2.4); Potassium 3.8 mmol/L (3.5-5.1)
[2020-02-05] MEDS: MoRPHine SULFATE 4 MG/ML 1 ML CARP\\VIAL IV PRN (10:47)
--- NOTE | 2020-02-05 10:48 | Pharmacy Report ---
Pharmacy Glycemic Short Note 2 - Date of Service February 05, 2020 - Glycemic Short BSG Results (Last 24 hours): 02/04/20 02/04/20 02/04/20 12:21 17:03 20:33 Glucose POC Glucose 174 H 109 H 136 H 02/05/20 02/05/20 08:22 08:44 Glucose 100 H POC Glucose 103 H OUTPATIENT ANTIDIABETIC REGIMEN: * Metformin 500 mg PO BIDM * HbA1c = 10.9% on 01/30/20 ASSESSMENT: 02/04: * Patient is currently receiving 43 units of insulin per day * 30 units of basal insulin * 13 units of prandial/correctional insulin * BSGs ranging 103 - 174 mg/dl over the past 24hrs * AM Fasting BSG = 103 mg/dl which is in goal range for inpatient targets. No changes needed to basal * Total daily dose = is weighted towards basal insulin but CHO intake low yesterday. 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 IV antibiotic treatment of abdominal wall cellulitis with possible need for I&D * Patient seen by surgery this morning and will have I&D - currently NPO * BSGs of 202 and 184 mg/dL so far * Will await A1c result and likely order basal insulin postoperatively * Currently only ordered correction factor of 25 with no carb coverage - will address postoperatively * Patient received 4 mg IV dexamethasone perioperatively * Postoperative BSG of 253 mg/dL * Will tighten Novolog, add carb ratio, give one-time NPH 30 units (~0.4 unit/kg adjusted body weight) PLAN FOR INPATIENT GLYCEMIC CONTROL: no changes needed at this time. * Hold outpatient oral diabetes medications * Basal insulin: - continue * Lantus 15 units SQ BID * Bolus insulin: continue * NovoLog per scale ACHS or Q6hrs while NPO * Goal Range: Low 110 mg/dL - High 140 mg/dL * Correction Factor: 15 mg/dL/unit * Nutritional / Prandial insulin per carb ratio of 1 unit per 6 grams CHO consumed PLAN FOR DISCHARGE: * A1c = 10.9 % on 01/30/20 * Goal A1c = <7 % based on age and comorbidities * Metformin should be continued. Outpatient dosing of 500mg PO BIDM should be titrated upwards. Metformin is effective and safe, is inexpensive, and may reduce risk of cardiovascular events and . * B12 supplementation may be necessary with roasterman metformin use * Recommend starting: Continue to titrate metformin dosing upwards as recommended. Dosage increases should be made in increments of 500 mg weekly, up to 2,000 mg/day PO, given in divided doses. Doses above 2000 mg/day may be better tolerated if divided and given 3 times per day with meals. Max: 2,550 mg/day PO, in divided doses * Additional agent will be needed based on A1c. Additional agent should be chosen based on patient specific factors including efficacy, hypo risk, weight gain/loss, side effects, cost * GLP-1 RA: Decreases major adverse cardiovascular events, high efficacy, low hypo risk, weight loss, significant GI side effects (titrate low and slow), high cost * SGLT-2i: Decreases major adverse cardiovascular events, intermediate efficacy, low hypo risk, weight loss, /dehydration side effects, high cost * DPP-4i: intermediate efficacy (not efficacious for long-standing DM), low hypo risk, weight neutral, Increases risk of heart failure (Alogliptin, Saxagliptin) rare side effects (well tolerated), high cost * TZD: high efficacy, low hypo risk, weight gain, significant side effects (edema, HF, fxs), low cost * Basal insulin: high efficacy, hypo risk, weight gain, well tolerated, cost dependent on agent chosen (NPH low cost, all others high cost) * Support Patient Self-Management * Healthy Lifestyle (diet, exercise, and smoking cessation) * Disease self-management (SMBG) * Prevention of complications (BP, Lipid goals, Immunizations) * Consider outpatient Diabetes Self-Management Education & Support *
[2020-02-05] MEDS ORDERED: SENNA 8.6 MG TAB PO SCH (12:45)
--- NOTE | 2020-02-05 20:12 | Discharge Summary ---
Date of Service February 05, 2020 Principal Diagnosis Abdominal abscess Discharge Exam Constitutional WD/WN, vitals as above Eyes EOM intact bilaterally; no conjunctival abnormality ENMT external ear and nose normal, oropharynx normal Neck trachea midline, no thyromegaly normal visual inspection Respiratory normal respiratory effort, lungs clear to auscultation no respiratory distress Cardiovascular RRR, no murmur, no edema Gastrointestinal (Abdomen) Inspection/Auscultation: normal bowel sounds; + abdomen abnormal to inspection (Adominal bandages) and abdomen not distended Percussion/Palpation: abdomen soft Musculoskeletal no cyanosis or clubbing, extremities motor strength 5/5 Skin no rashes, warm and dry Neurologic moves all extremities and awake Psychiatric Orientation: alert, oriented to person and cooperative Discharge Data Allergies Allergy/AdvReac Type Severity Reaction Status Date / Time No Known Allergies Allergy Unverified 01/29/20 22:44 Consultations 01/30/20 00:09 ED Decision to Admit Stat 01/30/20 01:41 Consult General Surgery Routine 01/30/20 01:46 Consult Case Management - Discharge Planning Routine 02/02/20 16:14 Consult Infectious Diseases Routine Procedures Performed Operation Date: 01/30/20 09:40 Actual Procedures p Incision and Drainage of Abdominal Abcess and Abdominal Debridement(Not Applicable) - Arnaud Hennessy MD Ordered Studies 01/29/20 21:39 CT abd pelvis IV con only Stat Diabetes Follow up Diabetes Follow-up Needed for HgbA1c >9% Hospital Course (1) Abdominal wall cellulitis: S/p incision and drainage of abdominal wall abscess on 01/29. - Patient is having daily dressing changes. - Cannot get wound vac for cost; working with [facility]. - Continue dapto & metronidazole. Wound culture growing Peptostreptococcus anaerobius & two other anaerobes. Blood culture grew Finegoldia magna. - ID consulted on 02/02 -> Plan for Unasyn for now, then switch to Augmentin if improving. Will monitor WBC count. - Stable WBC on discharge. Improving wound. Surgery signed off. Will continue Augmentin 875 mg PO TID x 10 more days per ID recs. Will follow with [facility] next week. With self-pay, there is a discount of 55%, but exact cost structure was not available given we weren't sure what supplies she might need. She will follow up with [facility] PCP for diabetic care. (2) Diabetes: A1c was 10.9% this admission. - Glycemic pharmacist consulted - Presently on long-acting and sliding scale insulin - Discharged on metformin and glipizde and given 3+ month supplies of each. Will need to follow up with IM and this was emphasize to her. (3) Obesity: BMI 53. - Recommend life style changes. - Patient will need to get established with a PCP to help monitor her chronic co-morbidities. (4) Asthma: No breathing issues today. - Continue Breo - DuoNebs PRN (5) DVT prophylaxis: SCDs - Low DVT risk per admission calculator Total Time Total Time Spent Total Time Spent (In Minutes): 35 Discharge Plan Discharge Items Patient Disposition: Home - Self-Care Reason For Visit: ABSCESS Discharge Diagnosis: Abdominal abscess Condition on Discharge: Good Activity: Resume your previous activity Non-emergency contact: Primary Care Provider Call non-emergency contact if: your symptoms worsen and your temperature is above 101 Follow-up/Referrals: Dayanara Nelson CRNP [Nurse Practitioner] - (Please see [facility] next week. Wound care will call patient with f/u appt.) PCP,NO [Primary Care Provider] - Diet: Carb Consistent or DM2 Addtl Attending Provider Instructions: You were admitted with an abdominal abscess that required surgery to clear out the infection. The surgeons feel you are doing well and do not need to follow up unless you see complications like further drainage, pus, redness, or other issues. The [facility]ound Care nurse gave you enough supplies for about 5 days of dressing changes. You will need to go to the [facility] sometimes next week to ensure your incision is healing well. The [facility] gives a 55% discount for people who need to self-pay, so hopefully this keeps it reasonable to see them a few times while you heal. For PCP & routine gynecology needs, [facility] ([facility] can help. Their number is [phone]. Please do call them soon as they often have a waiting period due to demand. For your diabetes, we have sent two diabetes scripts to [facility]. Take the metformin two times per day and the glipizide once per day. [facility] PCPs can adjust these medications to help keep your blood sugar under control. Please take the antibiotic 3 times per day until every pill is gone. Pending Studies at Discharge: No Stand-Alone Forms: My [facility], Smoking Cessation Medications and DC Order Prescriptions: New metformin 500 mg tablet extended release 24hr 500 mg PO BID Qty: 360 RF: 0 glipizide 5 mg tablet 5 mg PO DAILY Qty: 180 RF: 0 amoxicillin-pot clavulanate [Augmentin] 875-125 mg tablet 1 tab PO TID Qty: 30 RF: 0 albuterol sulfate 90 mcg/actuation HFA aerosol inhaler 2 inh inhalation Q6H PRN (Reason: shortness of breath or wheezing) Qty: 6.7 RF: 0 hydrocodone-acetaminophen 5-325 mg tablet 1 tab PO DAILY PRN (Reason: pain) Qty: 14 RF: 0 Continued fluticasone propion-salmeterol [Advair Diskus] 250-50 mcg/dose Blister With Device 1 inh INHALATION BID RF: 0 Discontinued metformin 500 mg Tablet 500 mg PO BID RF: 0 Discharge Orders: Discharge Order (Routine); Ordered 02/05/20 Ordered By: Lexa Andrea/Other Patient Handouts: Diabetes Shopping Preparing Meals Admission Data Admit Date/Time: 02/01/20 07:08 Attending Provider: Lexa Jason Admit Provider: Kory Bray I. Primary Care Provider: PCP,NO Other Providers: Sean Kiran ; Ernst Russell ; Javier Wright ; Arnaud Hennessy ; Remigio Mesa Jr ; Aman Levy ; Jose Platt ; Danuta Loaiza ; Carlton Amaro ; Isma Ramos ; Jhonny Spaulding ; Juliana Rangel ; Naeem Bray I. ; Ayan Valenzuela II ; Junie Arauz ; Kali Hargrove Other Interventions: Discharge Summary Assessment (RN) Last Done: 02/05/20 14:15 Coding Level of Care Code D/C Day Management >30 mins Diagnoses Abdominal wall cellulitis L03.311 Diabetes E11.9 Obesity E66.9 Asthma J45.909 DVT prophylaxis Z29.9
== END 2020-02-05 15:58 | disposition home or self-care (01) | DRG 603 ==
LOC: ED 21:07 → 3W 21:07 → SUATTDRO 01-30 01:43 → 3W 01-30 02:14

== ENCOUNTER 2022-03-02 05:15 | Inpatient (IN) ==
[2022-03-02] MEDS ORDERED: SODIUM CHLORIDE 0.9% 1000ML 1,000 ML IV STA (05:27)
[2022-03-02] MEDS ORDERED: ALBUT/IPRATROP 3MG/0.5MG NEB 3 ML VIAL NEB STA (05:27)
[2022-03-02] MEDS ORDERED: methylPREDNISolone 125 MG/2 ML VIAL IV STA (05:27)
[2022-03-02] MEDS ORDERED: cefTRIAXone SODIUM 2,000 MG/70 ML BAG IV STA (05:33)
[2022-03-02] MEDS ORDERED: ACETAMINOPHEN 1,000 MG/100 ML VIAL IV STA (05:33)
--- NOTE | 2022-03-02 05:33 | Emergency Department Note ---
History of Present Illness General Chief complaint: Respiratory Problems Stated complaint: ASTHMA ATTACK Time Seen by Provider: 03/02/22 05:25 Source: patient Mode of arrival: ambulatory Limitations: physical limitation (Increased work of breathing) History of Present Illness Provider complaint: Shortness of breath Maximum Pain Intensity: 8 This is a 31-year-old female with a history of asthma who presents emergency primary for worsening shortness of breath. Patient states she has had some mild runny nose, earache, and increased asthma-like symptoms in the last 2 to 3 days. Patient states she was told yesterday that she had an ear infection and was started on antibiotics of the believe she vomited up the first dose last night. Patient does have a prior history of significant asthma, does use Advair and albuterol at home. She has previously been hospitalized in the ICU for her asthma although states she is never been intubated. Patient states she was using her inhaler as well as albuterol nebulizer treatments throughout the night however continued to feel short of breath. Home Medications Medication Instructions Recorded Confirmed Type albuterol sulfate 90 mcg/actuation 2 inh inhalation Q6H PRN shortness 02/05/20 04/21/21 Rx aerosol inhaler of breath or wheezing #6.7 grams metformin 500 mg tablet,extended 500 mg PO BID #360 tabs 02/05/20 04/21/21 Rx release 24hr glipizide 5 mg tablet 5 mg PO QAM 03/22/20 04/21/21 History fluticasone furoate 100 1 inh inhalation DAILY 04/09/20 04/21/21 History mcg-vilanterol 25 mcg/dose inhalation powder (Breo Ellipta) albuterol sulfate 90 mcg/actuation 2 inh inhalation Q6H #8.5 grams 04/21/21 Rx aerosol inhaler benzonatate 200 mg capsule 200 mg PO TID PRN cough #15 caps 04/21/21 Rx benzonatate 200 mg capsule 200 mg PO TID PRN cough #24 caps 04/21/21 Rx albuterol sulfate 90 mcg/actuation 2 inh inhalation Q8H PRN shortness 11/16/21 Rx aerosol inhaler (Ventolin HFA) of breath or wheezing #8.5 grams Allergies Allergy/AdvReac Type Severity Reaction Status Date / Time No Known Allergies Allergy Verified 04/21/21 09:50 Past Med/Surg History Medical History Asthma stable Diabetes NIDDM History of lipoma Morbid obesity Surgical wound, non healing Following with wound clinic ([facility] [place]) Surgical History History of incision and drainage Abdominal abscess I& : Grade view 1, MAC#3, ETT 7.0 at [facility] Hx of cholecystectomy 5+ years ago Family History Aunt Breast cancer maternal Denies family history of Ovarian cancer Colorectal cancer Social History Smoking Status: Never smoker Tobacco Type: E-cigarettes / Vaping Second Hand Exposure: No; Hx Alcohol Use: Yes Alcohol type: wine and hard liquor Hx Substance Use: Yes Non-Prescribed Medications: Marijuana Preferred Language: Ukrainian Communication Ability: Effective Visual Impairment: Limited Hearing Ability: Normal Rope Walker Required: No Beliefs That Will Affect Care: None marital status: Single Current Living Situation: Alone current occupational status: unemployed How many Children do You have: 0 Feels Safe at Home: Yes during the past year weight has: remained stable Assistive Devices: None Review of Systems A total of 10 systems reviewed and were otherwise negative All systems reviewed & are unremarkable except as noted in HPI & below Physical Exam Vital Signs Vital Signs - 24 hr 03/02/22 05:24 03/02/22 05:28 03/02/22 05:25 Temperature 38.1 C H Temperature Source Temporal Artery Scan Pulse Rate 117 H Pulse Rate [Right Finger] Pulse Rhythm Respiratory Rate 44 H Respiratory Effort / Characteristics Labored Labored Respiratory Depth Shallow Blood Pressure 160/115 H Blood Pressure Mean 130 Pulse Oximetry 70 L 73 L Oxygen Delivery Method Room Air Room Air Oxygen Flow Rate Fraction of Inspired Oxygen Sepsis Recent Fever Within 48 Hours No Sepsis New/Unexplained Change in Mental Status No Sepsis Action Taken by Nursing No Action Required Oxygen Flow Rate - Titration 5 Pulse Oximetry Post Tiitration 85 L 03/02/22 05:28 03/02/22 05:30 03/02/22 05:52 Temperature Temperature Source Pulse Rate Pulse Rate [Right Finger] Pulse Rhythm Respiratory Rate 38 H Respiratory Effort / Characteristics Respiratory Depth Blood Pressure Blood Pressure Mean Pulse Oximetry 85 L 96 76 L Oxygen Delivery Method Nasal Cannula Non-rebreather Room Air Oxygen Flow Rate 5 15 Fraction of Inspired Oxygen Sepsis Recent Fever Within 48 Hours Sepsis New/Unexplained Change in Mental Status Sepsis Action Taken by Nursing Oxygen Flow Rate - Titration 15 15 Pulse Oximetry Post Tiitration 96 03/02/22 05:52 03/02/22 05:40 03/02/22 05:55 Temperature Temperature Source Pulse Rate 110 H Pulse Rate [Right Finger] 108 H 112 H Pulse Rhythm Regular Respiratory Rate 31 H 35 H 24 Respiratory Effort / Characteristics Spontaneous Accessory Muscle Use Short of Breath Spontaneous Accessory Muscle Use Respiratory Depth Blood Pressure Blood Pressure Mean Pulse Oximetry 95 95 99 Oxygen Delivery Method Non-rebreather Non-rebreather High Flow Nasal Cannula Oxygen Flow Rate 15 15 30 Fraction of Inspired Oxygen 50 Sepsis Recent Fever Within 48 Hours Sepsis New/Unexplained Change in Mental Status Sepsis Action Taken by Nursing Oxygen Flow Rate - Titration Pulse Oximetry Post Tiitration 03/02/22 07:05 03/02/22 07:35 Temperature Temperature Source Pulse Rate 104 H Pulse Rate [Right Finger] 106 H Pulse Rhythm Respiratory Rate 20 18 Respiratory Effort / Characteristics Spontaneous Respiratory Depth Blood Pressure 149/90 H Blood Pressure Mean Pulse Oximetry 95 96 Oxygen Delivery Method High Flow Nasal Cannula High Flow Nasal Cannula Oxygen Flow Rate 30 Fraction of Inspired Oxygen 50 Sepsis Recent Fever Within 48 Hours Sepsis New/Unexplained Change in Mental Status Sepsis Action Taken by Nursing Oxygen Flow Rate - Titration Pulse Oximetry Post Tiitration GENERAL: alert, unwell appearing, well nourished, moderate distress, non-toxic, BMI 54 EYE EXAM: normal conjunctiva, PERRL and EOM's grossly intact EARS: Left TM with erythema and dullness, no effusion noted, right TM clear without erythema or effusion OROPHARYNX: no exudate, no erythema, lips, buccal mucosa, and tongue normal and mucous membranes are moist NECK: supple, no nuchal rigidity, no adenopathy, non-tender LUNGS: Normal chest wall mechanics, increased WOB, tachypnea, decreased BS b/l with scattered faint exp wheeze HEART: no murmurs, S1 normal and S2 normal ABDOMEN: abdomen soft, non-tender, normo-active bowel sounds, no masses, no rebo und or guarding. BACK: Back is symmetrical on inspection and there is no deformity, no midline tenderness, no CVA tenderness. SKIN: no rashes and no bruising UPPER EXTREMITIES: upper extremities are grossly normal. FROM, nml pulses b/l. LOWER EXTREMITIES: No pitting edema. FROM, nml pulses b/l. NEURO EXAM: Normal sensorium, cranial nerves II-XII grossly intact, normal speech, no gross weakness of arms, no gross weakness of legs. Gross sensation intact. Course Course 0540: Patient with slightly increased air movement on auscultation at this time. Continuous nebulizer running, other medications being started. 0552: Slightly decreased work of breathing. RT at bedside transitioning patient to high flow nasal cannula. IV magnesium running. 0602: RR improving, still tachycardic. Patient now on HFNC. 0613: Patient states she still feels as though it is hard to breath. Updated on results and plan. 0635: Heart rate 107, respiratory rate 23. Patient continues on high flow nasal cannula. 0702: Vital signs slowly improving. Patient states she notices only minimal difference with the breathing treatment and medication given so far. Administered Medications Discontinued Medications Albuterol (Albut/Ipratrop 3mg/0.5mg Neb 3 Ml Vial) 12 ml NEB ONE STA Stop: 03/02/22 05:28 Last Admin: 03/02/22 05:43 Dose: 12 ml Documented By: SOFI Magnesium Sulfate/Dextrose (Magnesium Sulfate / D5w) 1 gm in 100 mls @ 600 m ls/hr IV Q10M [facility] Stop: 03/02/22 05:48 Last Infusion: 03/02/22 06:14 Dose: 0 mls/hr Documented By: Admin: 03/02/22 05:55 Dose: 600 mls/hr Documented By: Infusion: 03/02/22 05:53 Dose: 0 mls/hr Documented By: Admin: 03/02/22 05:42 Dose: 600 mls/hr Documented By: OCTAVIO Sodium Chloride (Nss 1000ml) 1,000 mls @ 999 mls/hr IV .Q1H1M STA Stop: 03/02/22 06:27 Last Infusion: 03/02/22 06:47 Dose: 0 mls/hr Documented By: Admin: 03/02/22 05:42 Dose: 999 mls/hr Documented By: OCTAVIO Ceftriaxone Sodium (Rocephin) 2,000 mg in 70 mls @ 140 mls/hr IV NOW STA Stop: 03/02/22 06:02 Last Infusion: 03/02/22 06:13 Dose: 0 mls/hr Documented By: Admin: 03/02/22 05:42 Dose: 140 mls/hr Documented By: OCATVIO Acetaminophen (Ofirmev) 1,000 mg in 100 mls @ 400 mls/hr IV NOW STA Stop: 03/02/22 05:47 Last Infusion: 03/02/22 05:59 Dose: 0 mls/hr Documented By: Admin: 03/02/22 05:42 Dose: 400 mls/hr Documented By: OCTAVIO Insulin Human Regular (Novolin-R Insulin Per Unit Charge) 6 units SC NOW STA Stop: 03/02/22 06:46 Last Admin: 03/02/22 06:51 Dose: 6 units Documented By: OCTAVIO Co-signed By: NARCISA Methylprednisolone (Methylprednisolone 125 Mg/2 Ml Vial) 125 mg IV NOW STA Stop: 03/02/22 05:28 Last Admin: 03/02/22 05:42 Dose: 125 mg Documented By: OCTAVIO Ondansetron HCl (Ondansetron Inj 2 Mg/Ml 2 Ml Vial) Confirm Administered Dose 4 mg .ROUTE .STK-MED ONE Stop: 03/02/22 07:01 Last Admin: 03/02/22 07:02 Dose: 4 mg Documented By: OCTAVIO Critical Care Time Critical Care Time: Yes Total Critical Care Time: 72 Critical care of 72 min performed to assess and manage high likelihood of life-threatening acute hypoxic respiratory failure and asthma exacerbation, involving labs and imaging performed with assessment to evaluate acute hypoxic respiratory failure and asthma exacerbation diagnosis with frequent reassessment. This time includes bedside time, treatment discussions with patient/family/consultants, documentation time and excludes procedure time. Medical Decision Making Differential Diagnosis Differential diagnoses includes but is not limited to pneumonia, bronchitis, COPD/Asthma exacerbation, pneumothorax, pulmonary embolism, congestive heart failure, acute coronary syndrome Medical Records Attestation: I reviewed the patient's medical records. Home Medications Current Medication List: was personally reviewed by me Laboratory Data Attestation: I reviewed the patient's lab results. 03/02/22 05:30 03/02/22 05:30 Lab Results 03/02/22 03/02/22 03/02/22 Range/Units 05:29 05:30 05:30 WBC 15.80 H (4.8-10.8) K/ul RBC 4.90 (3.93-5.22) M/uL Hgb 13.7 (12.0-16.0) g/dl POC Hgb (12.0-16.0) g/dl Hct 41.8 (34.1-44.9) % POC Hct (37-47) % MCV 85.3 (80.0-100.0) fL MCH 28.0 (25.0-34.0) pg MCHC 32.8 (32.0-36.0) g/dL RDW Std Deviation 40.0 (36.4-46.3) fL RDW Coeff of Wily 12.9 (11.5-14.5) % Plt Count 307 (130-400) K/uL MPV 10.8 (9.4-12.3) fL Immature Gran % (Auto) 0.5 % Neut % (Auto) 84.5 % Lymph % (Auto) 6.8 % [place] % (Auto) 5.2 % Eos % (Auto) 2.7 % Baso % (Auto) 0.3 % Neut # (Auto) 13.36 H (1.4-6.5) K/uL Lymph # (Auto) 1.07 L (1.2-3.4) K/uL [place] # (Auto) 0.82 (0.24-0.82) K/uL Eos # (Auto) 0.43 (0-0.50) K/uL Baso # (Auto) 0.04 (0-0.2) K/uL Immature Gran # (Auto) 0.08 H (0.00-0.02) K/uL POC pH (7.35-7.45) POC pCO2 (35-46) mmHg POC pO2 (80-95) mmHg POC HCO3 (19-24) brayan/L POC Total CO2 (24-31) mmol/L POC Base Excess (-9-1.8) brayan/L POC ABG O2 Sat (90-95) % POC Sodium (135-144) mmol/L Sodium 134 L (136-145) mmol/L POC Potassium (3.3-5.0) mmol/L Potassium 4.0 (3.5-5.1) mmol/L Chloride 98 (98-107) mmol/L Carbon Dioxide 25 (21-32) mmol/L Anion Gap 11 (3-11) BUN 6 (6-23) mg/dl Creatinine 0.55 L (0.6-1.2) mg/dl Est Cr Clr Drug Dosing 189.4 ml/min Est GFR ( Amer) 144.9 ml/min Est GFR (Non-Af Amer) 125.0 ml/min BUN/Creatinine Ratio 10.9 (10-20) Glucose 338 H* (70-99(Fasting)) mg/dl Lactate (0.4-2.0) mmol/L Calcium 9.6 (8.5-10.1) mg/dl Magnesium (1.7-2.4) mg/dl Total Bilirubin 0.7 (0.2-1.0) mg/dl AST 17 (13-39) U/L ALT 23 (7-52) U/L Alkaline Phosphatase 99 (34-104) U/L Troponin I High Sens 8.0 (0-14) pg/ml B-Natriuretic Peptide (0-100) pg/ml Total Protein 8.3 (6.0-8.3) gm/dl Albumin 4.2 (3.4-5.0) gm/dl Globulin 4.1 H (2.5-4.0) gm/dl Albumin/Globulin Ratio 1.0 (0.9-2) Procalcitonin (0-0.5) ng/ml Adenovirus (PCR) Not Detected (NotDetected) B. pertussis DNA (PCR) Not Detected (NotDetected) B.parapertussis DNA PCR Not Detected (NotDetected) C. pneumoniae DNA (PCR) Not Detected (NotDetected) Coronavirus OC43 (PCR) Not Detected (NotDetected) Coronavirus HKU1 (PCR) Not Detected (NotDetected) Coronavirus 229E (PCR) Not Detected (NotDetected) SARS-CoV-2 (PCR) DETECTED A* (NotDetected) Coronavirus NL63 (PCR) Not Detected (NotDetected) Human Metapneumovir PCR Not Detected (NotDetected) Influenza Type A (PCR) Not Detected (NotDetected) Influenza Type B (PCR) Not Detected (NotDetected) M. pneumoniae (PCR) Not Detected (NotDetected) Parainfluenza 1 (PCR) Not Detected (NotDetected) Parainfluenza 2 (PCR) Not Detected (NotDetected) Parainfluenza 3 (PCR) Not Detected (NotDetected) Parainfluenza 4 (PCR) Not Detected (NotDetected) RSV (PCR) Not Detected (NotDetected) Entero/Rhino (PCR) DETECTED A* (NotDetected) 03/02/22 03/02/22 03/02/22 Range/Units 05:30 05:30 05:37 WBC (4.8-10.8) K/ul RBC (3.93-5.22) M/uL Hgb (12.0-16.0) g/dl POC Hgb (12.0-16.0) g/dl Hct (34.1-44.9) % POC Hct (37-47) % MCV (80.0-100.0) fL MCH (25.0-34.0) pg MCHC (32.0-36.0) g/dL RDW Std Deviation (36.4-46.3) fL RDW Coeff of Wily (11.5-14.5) % Plt Count (130-400) K/uL MPV (9.4-12.3) fL Immature Gran % (Auto) % Neut % (Auto) % Lymph % (Auto) % [place] % (Auto) % Eos % (Auto) % Baso % (Auto) % Neut # (Auto) (1.4-6.5) K/uL Lymph # (Auto) (1.2-3.4) K/uL [place] # (Auto) (0.24-0.82) K/uL Eos # (Auto) (0-0.50) K/uL Baso # (Auto) (0-0.2) K/uL Immature Gran # (Auto) (0.00-0.02) K/uL POC pH (7.35-7.45) POC pCO2 (35-46) mmHg POC pO2 (80-95) mmHg POC HCO3 (19-24) brayan/L POC Total CO2 (24-31) mmol/L POC Base Excess (-9-1.8) brayan/L POC ABG O2 Sat (90-95) % POC Sodium (135-144) mmol/L Sodium (136-145) mmol/L POC Potassium (3.3-5.0) mmol/L Potassium (3.5-5.1) mmol/L Chloride (98-107) mmol/L Carbon Dioxide (21-32) mmol/L Anion Gap (3-11) BUN (6-23) mg/dl Creatinine (0.6-1.2) mg/dl Est Cr Clr Drug Dosing ml/min Est GFR ( Amer) ml/min Est GFR (Non-Af Amer) ml/min BUN/Creatinine Ratio (10-20) Glucose (70-99(Fasting)) mg/dl Lactate 2.5 H* (0.4-2.0) mmol/L Calcium (8.5-10.1) mg/dl Magnesium 1.6 L (1.7-2.4) mg/dl Total Bilirubin (0.2-1.0) mg/dl AST (13-39) U/L ALT (7-52) U/L Alkaline Phosphatase (34-104) U/L Troponin I High Sens (0-14) pg/ml B-Natriuretic Peptide (0-100) pg/ml Total Protein (6.0-8.3) gm/dl Albumin (3.4-5.0) gm/dl Globulin (2.5-4.0) gm/dl Albumin/Globulin Ratio (0.9-2) Procalcitonin 0.08 (0-0.5) ng/ml Adenovirus (PCR) (NotDetected) B. pertussis DNA (PCR) (NotDetected) B.parapertussis DNA PCR (NotDetected) C. pneumoniae DNA (PCR) (NotDetected) Coronavirus OC43 (PCR) (NotDetected) Coronavirus HKU1 (PCR) (NotDetected) Coronavirus 229E (PCR) (NotDetected) SARS-CoV-2 (PCR) (NotDetected) Coronavirus NL63 (PCR) (NotDetected) Human Metapneumovir PCR (NotDetected) Influenza Type A (PCR) (NotDetected) Influenza Type B (PCR) (NotDetected) M. pneumoniae (PCR) (NotDetected) Parainfluenza 1 (PCR) (NotDetected) Parainfluenza 2 (PCR) (NotDetected) Parainfluenza 3 (PCR) (NotDetected) Parainfluenza 4 (PCR) (NotDetected) RSV (PCR) (NotDetected) Entero/Rhino (PCR) (NotDetected) 03/02/22 03/02/22 03/02/22 Range/Units 05:43 07:48 07:58 WBC (4.8-10.8) K/ul RBC (3.93-5.22) M/uL Hgb (12.0-16.0) g/dl POC Hgb 13.9 (12.0-16.0) g/dl Hct (34.1-44.9) % POC Hct 41 (37-47) % MCV (80.0-100.0) fL MCH (25.0-34.0) pg MCHC (32.0-36.0) g/dL RDW Std Deviation (36.4-46.3) fL RDW Coeff of Wily (11.5-14.5) % Plt Count (130-400) K/uL MPV (9.4-12.3) fL Immature Gran % (Auto) % Neut % (Auto) % Lymph % (Auto) % [place] % (Auto) % Eos % (Auto) % Baso % (Auto) % Neut # (Auto) (1.4-6.5) K/uL Lymph # (Auto) (1.2-3.4) K/uL [place] # (Auto) (0.24-0.82) K/uL Eos # (Auto) (0-0.50) K/uL Baso # (Auto) (0-0.2) K/uL Immature Gran # (Auto) (0.00-0.02) K/uL POC pH 7.42 (7.35-7.45) POC pCO2 39 (35-46) mmHg POC pO2 66 L (80-95) mmHg POC HCO3 25 H (19-24) brayan/L POC Total CO2 26 (24-31) mmol/L POC Base Excess 1.0 (-9-1.8) brayan/L POC ABG O2 Sat 93.0 (90-95) % POC Sodium 135 (135-144) mmol/L Sodium (136-145) mmol/L POC Potassium 4.1 (3.3-5.0) mmol/L Potassium (3.5-5.1) mmol/L Chloride (98-107) mmol/L Carbon Dioxide (21-32) mmol/L Anion Gap (3-11) BUN (6-23) mg/dl Creatinine (0.6-1.2) mg/dl Est Cr Clr Drug Dosing ml/min Est GFR ( Amer) ml/min Est GFR (Non-Af Amer) ml/min BUN/Creatinine Ratio (10-20) Glucose (70-99(Fasting)) mg/dl Lactate 1.9 (0.4-2.0) mmol/L Calcium (8.5-10.1) mg/dl Magnesium (1.7-2.4) mg/dl Total Bilirubin (0.2-1.0) mg/dl AST (13-39) U/L ALT (7-52) U/L Alkaline Phosphatase (34-104) U/L Troponin I High Sens (0-14) pg/ml B-Natriuretic Peptide 38 (0-100) pg/ml Total Protein (6.0-8.3) gm/dl Albumin (3.4-5.0) gm/dl Globulin (2.5-4.0) gm/dl Albumin/Globulin Ratio (0.9-2) Procalcitonin (0-0.5) ng/ml Adenovirus (PCR) (NotDetected) B. pertussis DNA (PCR) (NotDetected) B.parapertussis DNA PCR (NotDetected) C. pneumoniae DNA (PCR) (NotDetected) Coronavirus OC43 (PCR) (NotDetected) Coronavirus HKU1 (PCR) (NotDetected) Coronavirus 229E (PCR) (NotDetected) SARS-CoV-2 (PCR) (NotDetected) Coronavirus NL63 (PCR) (NotDetected) Human Metapneumovir PCR (NotDetected) Influenza Type A (PCR) (NotDetected) Influenza Type B (PCR) (NotDetected) M. pneumoniae (PCR) (NotDetected) Parainfluenza 1 (PCR) (NotDetected) Parainfluenza 2 (PCR) (NotDetected) Parainfluenza 3 (PCR) (NotDetected) Parainfluenza 4 (PCR) (NotDetected) RSV (PCR) (NotDetected) Entero/Rhino (PCR) (NotDetected) Imaging Data Radiologist's Impression: Chest X-Ray 03/02/22 05:27 XR chest 1V portable HISTORY: dyspnea COMPARISON: Chest 11/16/2021. FINDINGS: No pneumothorax. No pleural effusions. There are low lung volumes. The cardiac silhouette is mildly enlarged. Multifocal patchy bilateral airspace opacities, right greater than left. IMPRESSION: Multifocal bilateral airspace opacities likely representing a pneumonia. ACT 112: Negative or not required by law. Electronically signed by: Robi David M.D. 03/02/2022 7:23 AM ECG Data Attestation: I personally reviewed and interpreted this ECG as follows: Indication: + SOB/dyspnea Rate (beats per minute): 110 Rhythm: + sinus tachycardia ECG Intervals/blocks: + Normal QRS and + Normal QT ECG Telephone: + Left axis deviation ECG ST segments: + Nonspecific ST abnormalities MDM Narrative An order was placed for continuous cardiac monitoring. The monitor shows a rate of 117__ with _sinus tachycardia_ rhythm. This is a 31-year-old female who presents in significant respiratory distress. She was immediately brought back from triage and placed in room where she was found to be hypoxic, tachypneic, tachycardic, with significant increased work of breathing. I was called urgently to the room. Patient immediately evaluated in A9. Patient stated she had no improvement using her nebulizer treatment and MDIs at home. Given her initial O2 sats in the 70s she had been placed on oxygen via nasal cannula however was still in the 80s, and upon my arrival they were transitioning her to a nonrebreather at 15 L/min and her oxygen began to improve into the 90s. Nursing staff began searching for IV access and drawing labs. I called for respiratory therapy to immediately come to bedside. Patient started on continuous nebulizer treatment. Given significant prior history of asthma, prior hospitalization, and current distress, orders placed and patient quickly transitioned while on the continuous nebulizer to high flow nasal cannula well IV magnesium, IV Solu-Medrol, IV fluids, and IV Rocephin were being started. Patient's chest x-ray with appearance of scattered bilateral infiltrates, markedly worse compared to prior chest x-ray. Patient was also noted to be febrile. IV Tylenol was added additionally. I rechecked the patient multiple times myself and continue to watch her vital signs on telemetry throughout. Case initially discussed with [facility] hospitalist, however ultimately was found to be a [facility] patient after additional updated information was entered into the computer. Patient did have improvement in her vital signs here with therapy initiated, although continued to complain of feeling short of breath. Patient was less tachycardic, less tachypneic, decreased work of breathing. Patient did have improved air movement on repeat auscultations, she had bilateral rhonchi and wheezing. Labs revealed leukocytosis, mildly elevated lactic acid, and hyperglycemia. Subcu insulin added for the patient's hyperglycemia, no evidence of DKA. Impression & Plan Acute and chronic respiratory failure with hypoxia, Asthma with exacerbation, COVID-19, Obesity, Acute left otitis media, Acute hyperglycemia Discharge Plan Visit Data Chief Complaint: Respiratory Problems Stated Complaint: ASTHMA ATTACK ED Provider: Giselle Andersen Discharge Problem: Acute and chronic respiratory failure with hypoxia, Asthma with exacerbation, COVID-19, Obesity, Acute left otitis media, Acute hyperglycemia Patient Disposition: Admitted As Inpatient Condition: Fair Discharge Instructions Interventions: ED Discharge Assessment Last Done: 03/02/22 07:35 Forms Stand Alone Forms: My [facility] Prescriptions Prescriptions: No Action metformin 500 mg tablet extended release 24hr 500 mg PO BID Qty: 360 0RF albuterol sulfate 90 mcg/actuation HFA aerosol inhaler 2 inh inhalation Q6H PRN (Reason: shortness of breath or wheezing) Qty: 6.7 0RF glipizide 5 mg tablet 5 mg PO QAM Breo Ellipta 100-25 mcg/dose Blister With Device 1 inh INHALATION DAILY albuterol sulfate 90 mcg/actuation HFA aerosol inhaler 2 inh inhalation Q6H Qty: 8.5 0RF benzonatate 200 mg capsule 200 mg PO TID PRN (Reason: cough) Qty: 24 0RF benzonatate 200 mg capsule 200 mg PO TID PRN (Reason: cough) Qty: 15 0RF albuterol sulfate [Ventolin HFA] 90 mcg/actuation HFA aerosol inhaler 2 inh inhalation Q8H PRN (Reason: shortness of breath or wheezing) Qty: 8.5 0RF Referrals Referrals: PCP,NO [Physician] -
[2022-03-02] MEDS: MAGNESIUM SULFATE / D5W 1 GM/100 ML BAG IV SCH ×2 (05:42→05:55)
[2022-03-02 05:57] LABS: iSTAT Arterial Blood Gas HCO3 25 meg/L (19-24); iSTAT Arterial Blood Gas pCO2 39 mmHg (35-46); iSTAT Arterial Blood Gas pH 7.42 (7.35-7.45); iSTAT Arterial Blood Gas pO2 66 mmHg (80-95); iSTAT Carbon Dioxide 26 mmol/L (24-31); iSTAT Hematocrit 41 % (37-47); iSTAT Hemoglobin 13.9 g/dl (12.0-16.0); iSTAT Potassium 4.1 mmol/L (3.3-5.0); iSTAT Sodium 135 mmol/L (135-144)
[2022-03-02 06:08] LABS: Basophils # (auto) 0.04 K/uL (0-0.2); Basophils % (auto) 0.3 %; Eosinophils # (auto) 0.43 K/uL (0-0.50); Eosinophils % (auto) 2.7 %; Hematocrit (blood only) 41.8 % (34.1-44.9); Hemoglobin 13.7 g/dl (12.0-16.0); Immature Granulocytes # (auto) 0.08 K/uL (0.00-0.02); Immature Granulocytes % (auto) 0.5 %; Lymphocytes # (auto) 1.07 K/uL (1.2-3.4); Lymphocytes % (auto) 6.8 %; Mean Corpuscular Hgb Conc 32.8 g/dL (32.0-36.0); Mean Corpuscular Volume 85.3 fL (80.0-100.0); Mean Platelet Volume 10.8 fL (9.4-12.3); Monocytes # (auto) 0.82 K/uL (0.24-0.82); Monocytes % (auto) 5.2 %; Neutrophils # (auto) 13.36 K/uL (1.4-6.5); Neutrophils % (auto) 84.5 %; Platelet Count 307 K/uL (130-400); RDW Coefficient of Variation 12.9 % (11.5-14.5)
--- NOTE | 2022-03-02 06:19 | History & Physical Report ---
Date of Service March 02, 2022 History of Present Illness Primary Care Provider: Hilda Mathew DO Allergies Allergy/AdvReac Type Severity Reaction Status Date / Time No Known Allergies Allergy Verified 04/21/21 09:50 Home Medications Medication Instructions Recorded Confirmed Type albuterol sulfate 90 mcg/actuation 2 inh inhalation Q6H PRN shortness 02/05/20 04/21/21 Rx aerosol inhaler of breath or wheezing #6.7 grams metformin 500 mg tablet,extended 500 mg PO BID #360 tabs 02/05/20 04/21/21 Rx release 24hr glipizide 5 mg tablet 5 mg PO QAM 03/22/20 04/21/21 History fluticasone furoate 100 1 inh inhalation DAILY 04/09/20 04/21/21 History mcg-vilanterol 25 mcg/dose inhalation powder (Breo Ellipta) albuterol sulfate 90 mcg/actuation 2 inh inhalation Q6H #8.5 grams 04/21/21 Rx aerosol inhaler benzonatate 200 mg capsule 200 mg PO TID PRN cough #15 caps 04/21/21 Rx benzonatate 200 mg capsule 200 mg PO TID PRN cough #24 caps 04/21/21 Rx albuterol sulfate 90 mcg/actuation 2 inh inhalation Q8H PRN shortness 11/16/21 Rx aerosol inhaler (Ventolin HFA) of breath or wheezing #8.5 grams Past Med/Surg History Medical History Asthma stable Diabetes NIDDM History of lipoma Morbid obesity Surgical wound, non healing Following with wound clinic ([facility]) Surgical History History of incision and drainage Abdominal abscess I& : Grade view 1, MAC#3, ETT 7.0 at [facility] Hx of cholecystectomy 5+ years ago Family History Aunt Breast cancer maternal Denies family history of Ovarian cancer Colorectal cancer Social History Smoking Status: Never smoker Tobacco Type: E-cigarettes / Vaping Second Hand Exposure: No; Hx Alcohol Use: Yes Alcohol type: wine and hard liquor Hx Substance Use: Yes Non-Prescribed Medications: Marijuana Preferred Language: Kosovan Communication Ability: Effective Visual Impairment: Limited Hearing Ability: Normal Plug Making Operator Required: No Beliefs That Will Affect Care: None marital status: Single Current Living Situation: Alone current occupational status: unemployed How many Children do You have: 0 Feels Safe at Home: Yes during the past year weight has: remained stable Assistive Devices: None Results & Data Results & Data ([facility]) Vital Signs (Past 12 Hours) Vital Signs Temp Pulse Pulse Resp BP Pulse Ox O2 Del Method 03/02/22 05:55 112 H 24 99 High Flow Nasal Cannula 03/02/22 05:40 108 H 35 H 95 Non-rebreather 03/02/22 05:52 110 H 31 H 95 Non-rebreather 03/02/22 05:52 76 L Room Air 03/02/22 05:30 38 H 96 Non-rebreather 03/02/22 05:28 85 L Nasal Cannula 03/02/22 05:25 73 L Room Air 03/02/22 05:24 38.1 C H 117 H 44 H 160/115 H 70 L Room Air O2 Flow Rate FiO2 03/02/22 05:55 30 50 03/02/22 05:40 15 03/02/22 05:52 15 03/02/22 05:52 03/02/22 05:30 15 03/02/22 05:28 5 03/02/22 05:25 03/02/22 05:24 PG Care Time/CCT Total # of Minutes Spent Total Time Spent with Patient: Total time spent is greater than 50% in coordination of care (as documented) at patient's floor/unit and/or counseling patient: Coding
[2022-03-02 06:41] LABS: Albumin Level 4.2 gm/dl (3.4-5.0); BUN Creatinine Ratio 10.9 (10-20); Bilirubin,Total 0.7 mg/dl (0.2-1.0); Calcium 9.6 mg/dl (8.5-10.1); Creatinine Clr Calc Pharmacy 189.4 ml/min; Est GFR (African American) 144.9 ml/min; Globulin 4.1 gm/dl (2.5-4.0); Total Protein 8.3 gm/dl (6.0-8.3)
[2022-03-02] MEDS ORDERED: NovoLIN-R INSULIN PER UNIT CHARGE SC STA (06:45)
[2022-03-02] MEDS ORDERED: ONDANSETRON INJ 2 MG/ML 2 ML VIAL ONE (07:00)
[2022-03-02 07:08] LABS: Adenovirus PCR Not Detected (NotDetected); Bordetella parapertussis PCR Not Detected (NotDetected); Bordetella pertussis PCR Not Detected (NotDetected); Chlamydia pneumoniae PCR Not Detected (NotDetected); Coronavirus 229E PCR Not Detected (NotDetected); Coronavirus HKU1 PCR Not Detected (NotDetected); Coronavirus NL63 PCR Not Detected (NotDetected); Coronavirus OC43PCR Not Detected (NotDetected); Human Metapneumovirus PCR Not Detected (NotDetected); Influenza A PCR Not Detected (NotDetected); Influenza B PCR Not Detected (NotDetected); Mycoplasma pneumoniae PCR Not Detected (NotDetected); Parainfluenza Virus 1 PCR Not Detected (NotDetected); Parainfluenza Virus 2 PCR Not Detected (NotDetected); Parainfluenza Virus 3 PCR Not Detected (NotDetected); Parainfluenza Virus 4 PCR Not Detected (NotDetected); Respiratory Syncytial VirusPCR Not Detected (NotDetected); Rhinovirus/Enterovirus PCR DETECTED (NotDetected)
--- NOTE | 2022-03-02 07:24 | XRay Report ---
XR chest 1V portable HISTORY: dyspnea COMPARISON: Chest 11/16/2021. FINDINGS: No pneumothorax. No pleural effusions. There are low lung volumes. The cardiac silhouette i s mildly enlarged. Multifocal patchy bilateral airspace opacities, right greater than left. IMPRESSION: Multifocal bilateral airspace opacities likely representing a pneumonia. ACT 112: Negative or not required by law. Electronically signed by: Robi David M.D. 03/02/2022 7:23 AM
[2022-03-02 07:43] LABS: Coronavirus CoV-2 (COVID19)PCR DETECTED (NotDetected)
--- NOTE | 2022-03-02 09:14 | Electrocardiogram Report ---
Test Reason : Blood Pressure : / mmHG Vent. Rate : 110 BPM Atrial Rate : 110 BPM P-R Int : 164 ms QRS Dur : 096 ms QT Int : 354 ms P-R-T Axes : 053 -32 048 degrees QTc Int : 479 ms Poor data quality, interpretation may be adversely affected Sinus tachycardia Left axis deviation Moderate voltage criteria for LVH, may be normal variant Abnormal ECG When compared with ECG of 21-APR-2021 09:20, No significant change was found Confirmed by George Baez ([id number]) on 03/02/2022 9:14:21 AM Referred By: REFERRED SELF Confirmed By:George Baez
[2022-03-02] MEDS ORDERED: GLUCAGON FOR INJ 1 MG VIAL SQ PRN (10:57)
[2022-03-02] MEDS ORDERED: DEXTROSE 50% 50 ML SYRINGE IV PRN (10:57)
[2022-03-02] MEDS ORDERED: CARBOHYDRATES FOR HYPOGLYCEMIA PO PRN (10:57)
[2022-03-02] MEDS ORDERED: GLUCOSE 10 TAB/TUBE PO PRN (10:57)
[2022-03-02] MEDS ORDERED: LANTUS PER UNIT CHARGE SQ SCH (10:57)
[2022-03-02] MEDS ORDERED: GLUCOSE 40% GEL 15 GM TUBE PO PRN (10:57)
[2022-03-02] MEDS ORDERED: BENZONATATE 100 MG CAPSULE PO PRN (10:57)
[2022-03-02] MEDS ORDERED: AZITHROMYCIN 500 MG in DEXTROSE 5% 250 ML IV STA (11:24)
[2022-03-02] MEDS: ACETAMINOPHEN 325 MG TAB PO PRN ×2 (11:34→18:19)
[2022-03-02] MEDS ORDERED: LANTUS PER UNIT CHARGE SQ ONE (12:01)
[2022-03-02] MEDS: INSULIN ASPART PER UNIT SC SCH ×3 (12:22→20:36)
[2022-03-02] MEDS: methylPREDNISolone 40 MG in SYRINGE 0 ML IV SCH ×2 (12:33→14:36)
[2022-03-02] MEDS ORDERED: REMDESIVIR 200 MG in SODIUM CHLORIDE 0.9% 210 ML IV STA (13:04)
[2022-03-02] MEDS: ALBUTEROL 0.5% NEB SOLN 2.5 MG/0.5 ML VIAL NEB PRN ×3 (14:08→19:29)
[2022-03-02] MEDS: FLUTICASONE/VILANTEROL 100/25MCG 14 PUFFS/INHALER INH SCH (14:42)
--- NOTE | 2022-03-02 14:43 | Pulmonary Consultation ---
Date of Consultation March 02, 2022 Assessment & Plan (1) COVID-19: (2) Acute and chronic respiratory failure with hypoxia: (3) Asthma: (4) Obesity: Plan Impression: 31-year-old morbidly obese female with history of asthma presenting now with COVID pneumonitis and enterovirus PCR positive. She has hypoxemic respiratory failure and is on high flow. Recommendations: 1. COVID pneumonitis: The patient has been started on remdesivir. We will check CRP to see whether or not she is a candidate for additional immunomodulation. Discontinue Solu-Medrol and place her on Decadron 6 mg daily which should be enough to cover her asthma as well. Given her positive bio fire negative procalcitonin, think antibiotics can be safely discontinued at this point time. 2. Hypoxemic respiratory failure: Encourage the patient to try and sleep in a lateral decubitus position or try self proning. If the patient has escalation of oxygen requirement, application of noninvasive positive pressure ventilation may be appropriate. Try and defend oxygen saturations of about 88%. 3. Enterovirus positive PCR, supportive care. 4. Asthma: Decadron, prn nebs, Breo. May add singulair depending on degree of bronchospasm. 5. Management of the patient's other medical issues per primary admitting service. Patient's overall prognosis is guarded at this point time. She may clinically worsen. This was briefly discussed with her. Would progress to higher levels of support via heated high flow nasal cannula and if this fails, trials of positive airway pressure ventilation noninvasively as well as proning. If these interventions were to all prove ineffectual, patient may require intubation mechanical ventilation. She expressed understanding and is in agreement with the plan as outlined. Prognosis guarded. 40 min CC time managing patient with possible life threatening respiratory failure. History of Present Illness Attending Physician: Rohini Bray DO History of Present Illness Asked to assist in evaluation management of this morbidly obese patient admitted with COVID and enterovirus with acute hypoxemic respiratory failure and resp iratory distress. History is obtained from discussion with the patient as well as review the electronic medical record. Patient is a 31-year-old non-smoking female with reported history of asthma (no PFTs available) who was brought to the emergency room with 48 hours of headache, rhinorrhea, and increasing shortness of breath and wheezing. She was seen by her primary care provider yesterday and given antibiotics for an ear infection. She was unable to keep the antibiotics down due to nausea and vomiting. She had increasing shortness of breath so came to the emergency room today. She is f ound to be in mild respiratory distress and treated with steroids nebulizers magnesium and transition to high flow nasal cannula. Her COVID testing was positive and bio fire was positive for RSV. She was treated with Rocephin and azithromycin. Her procalcitonin was negative. She is currently on 40 L/min at 40% saturating in the mid 90% range but remains uncomfortable and tachypneic. She is complaining of a headache. The patient is fully vaccinated and boosted although she did not receive the most recent by valent booster. She cannot recall any ill contacts or exposures to anyone with COVID. Allergies Allergy/AdvReac Type Severity Reaction Status Date / Time No Known Allergies Allergy Verified 04/21/21 09:50 Home Medications Medication Instructions Recorded Confirmed Type albuterol sulfate 90 mcg/actuation 2 inh inhalation Q6H PRN shortness 02/05/20 04/21/21 Rx aerosol inhaler of breath or wheezing #6.7 grams metformin 500 mg tablet,extended 500 mg PO BID #360 tabs 02/05/20 04/21/21 Rx release 24hr glipizide 5 mg tablet 5 mg PO QAM 03/22/20 04/21/21 History fluticasone furoate 100 1 inh inhalation DAILY 04/09/20 04/21/21 History mcg-vilanterol 25 mcg/dose inhalation powder (Breo Ellipta) albuterol sulfate 90 mcg/actuation 2 inh inhalation Q6H #8.5 grams 04/21/21 Rx aerosol inhaler benzonatate 200 mg capsule 200 mg PO TID PRN cough #15 caps 04/21/21 Rx benzonatate 200 mg capsule 200 mg PO TID PRN cough #24 caps 04/21/21 Rx albuterol sulfate 90 mcg/actuation 2 inh inhalation Q8H PRN shortness 11/16/21 Rx aerosol inhaler (Ventolin HFA) of breath or wheezing #8.5 grams Patient History Medical History Asthma stable Diabetes NIDDM History of lipoma Morbid obesity Surgical wound, non healing Following with wound clinic ([facility]) Surgical History History of incision and drainage Abdominal abscess I& : Grade view 1, MAC#3, ETT 7.0 at [facility] Hx of cholecystectomy 5+ years ago Family History Aunt Breast cancer maternal Denies family history of Ovarian cancer Colorectal cancer Social History Smoking Status: Never smoker Tobacco Type: E-cigarettes / Vaping Second Hand Exposure: No; Hx Alcohol Use: Yes Alcohol type: wine and hard liquor Hx Substance Use: Yes Non-Prescribed Medications: Marijuana Preferred Language: Kiswahili Communication Ability: Effective Visual Impairment: Limited Hearing Ability: Normal [facility] Care [facility] Director Required: No Beliefs That Will Affect Care: None marital status: Single Current Living Situation: Alone current occupational status: unemployed How many Children do You have: 0 Feels Safe at Home: Yes during the past year weight has: remained stable Assistive Devices: None Review of Systems Review of Systems: All systems reviewed & are unremarkable except as noted in Subjective Physical Exam Constitutional: + morbidly obese Neck: trachea midline, no thyromegaly Respiratory: + labored breathing and + tachypneic Auscultation: + rhonchi and + wheezes Cardiovascular: RRR, no murmur, no edema Gastrointestinal (Abdomen): normal bowel sounds, soft, nontender, no hepatosplenomegaly Musculoskeletal: Extremities: extremities normal to inspection Skin: no rashes, warm and dry Neurologic: Nonfocal exam Lymphatic: no cervical lymphadenopathy Results & Data Results & Data ([facility]) Vital Signs (Past 12 Hours) Vital Signs Temp Pulse Pulse Resp BP BP Pulse Ox 03/02/22 14:08 101 H 26 H 94 03/02/22 11:42 100 H 24 92 03/02/22 11:40 104 H 91 03/02/22 11:40 03/02/22 10:06 97 H 16 166/108 H 96 03/02/22 09:29 101 H 16 97 03/02/22 08:59 37.0 C 03/02/22 07:35 104 H 18 149/90 H 96 03/02/22 07:05 106 H 20 95 03/02/22 05:55 112 H 24 99 03/02/22 05:40 108 H 35 H 95 03/02/22 05:52 110 H 31 H 95 03/02/22 05:52 76 L 03/02/22 05:30 38 H 96 03/02/22 05:28 85 L 03/02/22 05:25 73 L 03/02/22 05:24 38.1 C H 117 H 44 H 160/115 H 70 L Pulse Ox O2 Del Method O2 Del Method O2 Flow Rate FiO2 03/02/22 14:08 High Flow Nasal Cannula 40 40 03/02/22 11:42 High Flow Nasal Cannula 40 40 03/02/22 11:40 High Flow Nasal Cannula, Other 03/02/22 11:40 90 High Flow Nasal Cannula, Other 03/02/22 10:06 High Flow Nasal Cannula 03/02/22 09:29 Room Air 03/02/22 08:59 03/02/22 07:35 High Flow Nasal Cannula 03/02/22 07:05 High Flow Nasal Cannula 30 50 03/02/22 05:55 High Flow Nasal Cannula 30 50 03/02/22 05:40 Non-rebreather 15 03/02/22 05:52 Non-rebreather 15 03/02/22 05:52 Room Air 03/02/22 05:30 Non-rebreather 15 03/02/22 05:28 Nasal Cannula 5 03/02/22 05:25 Room Air 03/02/22 05:24 Room Air Critical Care Results & Data Vital Signs (Past 12 Hours) Vital Signs Temp Pulse Pulse Resp BP BP Pulse Ox 03/02/22 14:08 101 H 26 H 94 03/02/22 11:42 100 H 24 92 03/02/22 11:40 104 H 91 03/02/22 11:40 03/02/22 10:06 97 H 16 166/108 H 96 03/02/22 09:29 101 H 16 97 03/02/22 08:59 37.0 C 03/02/22 07:35 104 H 18 149/90 H 96 03/02/22 07:05 106 H 20 95 03/02/22 05:55 112 H 24 99 03/02/22 05:40 108 H 35 H 95 03/02/22 05:52 110 H 31 H 95 03/02/22 05:52 76 L 03/02/22 05:30 38 H 96 03/02/22 05:28 85 L 03/02/22 05:25 73 L 03/02/22 05:24 38.1 C H 117 H 44 H 160/115 H 70 L Pulse Ox O2 Del Method O2 Del Method O2 Flow Rate FiO2 03/02/22 14:08 High Flow Nasal Cannula 40 40 03/02/22 11:42 High Flow Nasal Cannula 40 40 03/02/22 11:40 High Flow Nasal Cannula, Other 03/02/22 11:40 90 High Flow Nasal Cannula, Other 03/02/22 10:06 High Flow Nasal Cannula 03/02/22 09:29 Room Air 03/02/22 08:59 03/02/22 07:35 High Flow Nasal Cannula 03/02/22 07:05 High Flow Nasal Cannula 30 50 03/02/22 05:55 High Flow Nasal Cannula 30 50 03/02/22 05:40 Non-rebreather 15 03/02/22 05:52 Non-rebreather 15 03/02/22 05:52 Room Air 03/02/22 05:30 Non-rebreather 15 03/02/22 05:28 Nasal Cannula 5 03/02/22 05:25 Room Air 03/02/22 05:24 Room Air Lab & Micro Results (Past 24 Hours) RBC 4.90 M/uL (3.93-5.22) 03/02/22 WBC 15.80 K/ul (4.8-10.8) H 03/02/22 Hgb 13.7 g/dl (12.0-16.0) 03/02/22 Hct 41.8 % (34.1-44.9) 03/02/22 MCV 85.3 fL (80.0-100.0) 03/02/22 MCH 28.0 pg (25.0-34.0) 03/02/22 MCHC 32.8 g/dL (32.0-36.0) 03/02/22 RDW Standard Deviation 40.0 fL (36.4-46.3) 03/02/22 RDW Coefficient of Variation 12.9 % (11.5-14.5) 03/02/22 Plt Count 307 K/uL (130-400) 03/02/22 MPV 10.8 fL (9.4-12.3) 03/02/22 Neutrophils (%) (Auto) 84.5 % 03/02/22 Lymphocytes (%) (Auto) 6.8 % 03/02/22 Monocytes # (Auto) 0.82 K/uL (0.24-0.82) 03/02/22 Eosinophils # (Auto) 0.43 K/uL (0-0.50) 03/02/22 Immature Granulocyte % (Auto) 0.5 % 03/02/22 Neutrophils # (Auto) 13.36 K/uL (1.4-6.5) H 03/02/22 Lymphocytes # (Auto) 1.07 K/uL (1.2-3.4) L 03/02/22 Monocytes # (Auto) 0.82 K/uL (0.24-0.82) 03/02/22 Eosinophils # (Auto) 0.43 K/uL (0-0.50) 03/02/22 Basophils # (Auto) 0.04 K/uL (0-0.2) 03/02/22 Immature Granulocyte # (Auto) 0.08 K/uL (0.00-0.02) H 03/02 Na 134 mmol/L (136-145) L 03/02/22 K 4.0 mmol/L (3.5-5.1) 03/02/22 Cl 98 mmol/L (98-107) 03/02/22 CO2 25 mmol/L (21-32) 03/02/22 Anion Gap 11 (3-11) 03/02/22 BUN 6 mg/dl (6-23) 03/02/22 Creatinine 0.55 mg/dl (0.6-1.2) L 03/02/22 Estimated GFR ( Amer) 144.9 ml/min 03/02/22 Estimated GFR (Non-Af Amer) 125.0 ml/min 03/02/22 BUN/Creatinine Ratio 10.9 (10-20) 03/02/22 Glu 338 mg/dl (70-99(Fasting)) H* 03/02/22 Ca 9.6 mg/dl (8.5-10.1) 03/02/22 Total Bilirubin 0.7 mg/dl (0.2-1.0) 03/02/22 AST 17 U/L (13-39) 03/02/22 ALT 23 U/L (7-52) 03/02/22 Alkaline Phosphatase 99 U/L (34-104) 03/02/22 TP 8.3 gm/dl (6.0-8.3) 03/02/22 Albumin 4.2 gm/dl (3.4-5.0) 03/02/22 Globulin 4.1 gm/dl (2.5-4.0) H 03/02/22 Albumin/Globulin Ratio 1.0 (0.9-2) 03/02/22 Mg 1.6 mg/dl (1.7-2.4) L 03/02/22 05:30 Calcium Level 9.6 mg/dl (8.5-10.1) 03/02/22 05:30 Diagnostic Findings (Past 24 Hours) Chest X-Ray 03/02/22 05:27 XR chest 1V portable HISTORY: dyspnea COMPARISON: Chest 11/16/2021. FINDINGS: No pneumothorax. No pleural effusions. There are low lung volumes. The cardiac silhouette is mildly enlarged. Multifocal patchy bilateral airspace opacities, right greater than left. IMPRESSION: Multifocal bilateral airspace opacities likely representing a pneumonia. ACT 112: Negative or not required by law. Electronically signed by: Robi David M.D. 03/02/2022 7:23 AM I & O Totals 24 Hours 03/01/22 03/02/22 03/03/22 06:59 06:59 06:59 Intake Total 1370 / 1370 Balance 1370 / 1370 Cumulative 03/02/22 05:15 thru 03/02/22 06:47 Intake Total 1370 Balance 1370 RT Ventilator Mngmt (Last Documented) Ventilator Ordered Settings Respiratory Rate 26 03/02/22 14:08 Fraction of Inspired Oxygen 40 03/02/22 14:08 Ventilator - PT Measurements Respiratory Rate 26 PG Care Time/CCT Total # of Minutes Spent Total Time Spent with Patient: Total time spent is greater than 50% in coordination of care (as documented) at patient's floor/unit and/or counseling patient: Coding Level of Care Code Critical Care 1st 30-74 mins Diagnoses COVID-19 U07.1 Acute and chronic respiratory failure with hypoxia J96.21 Asthma J45.909 Obesity E66.9
[2022-03-02] MEDS ORDERED: dexAMETHasone 6 MG in SYRINGE 0 ML IV SCH (14:45)
[2022-03-02] MEDS ORDERED: LORazepam 0.5 MG TAB PO STA (15:06)
--- NOTE | 2022-03-02 19:26 | Hospitalist Progress Note ---
Date of Service March 02, 2022 Assessment & Plan (1) Respiratory failure with hypoxia: (2) COVID-19: (3) Asthma with exacerbation: Plan: Present on admission with worsening shortness of breath and hypoxia COVID 19 testing was positive and bio fire was positive for RSV on admission CXR showed multifocal bilateral airspace opacities likely representing a pneumonia. She was started on IV with cefepime and azithromycin and Solu-Medrol Currently on high flow oxygen currently on 40 L/min at 40% Pulmonology consulted Continue high flow oxygen for now Patient met criteria to start remdesivir due to hypoxia require high flow oxygen IV Solu-Medrol changed to dexamethasone 6 mg IV daily by pulm IV antibiotic discontinued since procalcitonin negative Will monitor LFT while on remdesivir Will check CRP, ESR and ferritin in a.m. Continue juan Aguilar treatment incentive spirometry Patient encouraged to prone Will need to monitor closely Elevate Lactate Mostly due to Hypoxia Procalcitonin negative IV ax discontinued Lactate normalized Obesity Counseling on weight loss Diabetes Will check hemoglobin A1c Continue monitor blood sugar closely while on IV steroid Continue Lantus and insulin sliding scale DVT prophylaxis we will add Lovenox CODE STATUS full code Admission and Anticipated Discharge Date Admission Date: March 02, 2022 Subjective Patient was seen and evaluated for follow-up shortness of breath due to COVID-19 and rhinovirus Lying in bed with acute respiratory distress /labored breathing Currently on high flow oxygen supplement She said that earlier she was having difficulty to breathe but now her breathing is slightly better Denies any chest pain, palpitation, dizziness and cough Review of Systems Review of Systems: All systems reviewed & are unremarkable except as noted in Subjective Physical Exam Physical Exam: General- No acute distress Head- atraumatic Eyes- PERRL, EOMI, ENT- oropharynx clear Neck- supple, no JVD Lungs-+wheezing, +rhonchi Heart- regular rhythm; no murmur Abdomen- normal bowel sounds, soft, nontender Extremities- no calf tenderness Neuro- alert, oriented x 3; PERRL, EOMI; no facial palsy; no dysarthria Skin- warm & dry Results & Data Results & Data ([facility]) Vital Signs (Past 12 Hours) Vital Signs Temp Pulse Pulse Resp BP BP Pulse Ox 03/02/22 18:21 03/02/22 16:25 101 H 26 H 99 03/02/22 15:41 03/02/22 15:41 97 H 98 03/02/22 15:41 03/02/22 14:52 104 H 26 H 94 03/02/22 14:08 101 H 26 H 94 03/02/22 11:42 100 H 24 92 03/02/22 11:40 104 H 91 03/02/22 11:40 03/02/22 10:06 97 H 16 166/108 H 96 03/02/22 09:29 101 H 16 97 03/02/22 08:59 37.0 C 03/02/22 07:35 104 H 18 149/90 H 96 Pulse Ox O2 Del Method O2 Del Method O2 Flow Rate FiO2 03/02/22 18:21 High Flow Nasal Cannula 35 40 03/02/22 16:25 Oxymask 15 03/02/22 15:41 High Flow Nasal Cannula, Other 03/02/22 15:41 High Flow Nasal Cannula 03/02/22 15:41 High Flow Nasal Cannula, Other 03/02/22 14:52 High Flow Nasal Cannula 40 40 03/02/22 14:08 High Flow Nasal Cannula 40 40 03/02/22 11:42 High Flow Nasal Cannula 40 40 03/02/22 11:40 High Flow Nasal Cannula, Other 03/02/22 11:40 90 High Flow Nasal Cannula, Other 03/02/22 10:06 High Flow Nasal Cannula 03/02/22 09:29 Room Air 03/02/22 08:59 03/02/22 07:35 High Flow Nasal Cannula
--- NOTE | 2022-03-02 19:40 | History & Physical Report ---
Date of Service March 02, 2022 Assessment & Plan (1) Respiratory failure with hypoxia: Plan: 31yo female with history of asthma presenting with acute hypoxic respiratory failure due to acute asthma exacerbation. Most likely secondary to respiratory virus panel, although Biofire still pending at this time. Hypoxic on arrival with SpO2 of 70% on room air. Thus far she has been given Albuterol, Magnesium, Solumedrol and Ceftriaxone. Initial ABG with hypoxia, 7.42/39/66/25. -Admit to PCU. Low threshold for escalation to MICU -Maintain HFNC, presently at 40L/min with adequate oxygenation and improved work of breathing -Repeat gas ordered for this afternoon to assess for CO2 retention -Continue SoluMedrol 40mg IV TID -Continue Albuterol -Continue Advair -Await results of viral panel -Continue Ceftriaxone and Azithromycin now for possible CAP -Tylenol as needed -Tessalon as needed (2) Asthma with exacerbation: Plan: Acute hypoxic respiratory failure secondary to asthma exacerbation -Management as above with Solumedrol, Albuterol, Advair -Continue Antibiotics for now (3) Diabetes: Plan: With hyperglycemia -Insulin basal/bolus dosing -Goal blood sugar 110 - 140 (4) Acute left otitis media: Plan: Patient diagnosed with acute OM -Continue antibiotics as above for presumed PNA Admission and Anticipated Discharge Date Admission Date: March 02, 2022 History of Present Illness Chief Complaint: SOB Primary Care Provider: DO Aleksandra Whalen Siddhartha is a 31yo female with history of asthma and DM presenting with acute exacerbation of asthma. Patient has been having several days of congestion, rhinorrhea and earache for the last 2-3 days. She was diagnosed with an ear infection and started on some antibiotics. Today she had progressive SOB and wheeze which developed into acute respiratory distress prompting her to come to the ER. Has longstanding history of asthma on Advair and Albuterol at home. She has never been intubated for her asthma but has been in the MICU before. Upon arrival to the ER patient was in respiratory distress. She tachypneic and hypoxic on arrival with saturation of 70% on room air. She was administered Magnesium, Neb treatment, Solumedrol 125mg and placed on high flow nasal cannula with some improvement. Persistently tachycardic and tachypneic. During my encounter patient still visibly tachypneic, states that she was feeling a little better. No additional complaints. She denies fever, chills, abdominal pain. Had some nausea and vomiting following her antibiotic dose but otherwise no GI complaints. ER Course: Albuterol, Magnesium, NSS x 1L, Ceftriaxone, Tylenol, Solumedrol, Zofran Allergies Allergy/AdvReac Type Severity Reaction Status Date / Time No Known Allergies Allergy Verified 04/21/21 09:50 Home Medications Medication Instructions Recorded Confirmed Type albuterol sulfate 90 mcg/actuation 2 inh inhalation Q6H PRN shortness 02/05/20 04/21/21 Rx aerosol inhaler of breath or wheezing #6.7 grams metformin 500 mg tablet,extended 500 mg PO BID #360 tabs 02/05/20 04/21/21 Rx release 24hr glipizide 5 mg tablet 5 mg PO QAM 03/22/20 04/21/21 History fluticasone furoate 100 1 inh inhalation DAILY 04/09/20 04/21/21 History mcg-vilanterol 25 mcg/dose inhalation powder (Breo Ellipta) albuterol sulfate 90 mcg/actuation 2 inh inhalation Q6H #8.5 grams 04/21/21 Rx aerosol inhaler benzonatate 200 mg capsule 200 mg PO TID PRN cough #15 caps 04/21/21 Rx benzonatate 200 mg capsule 200 mg PO TID PRN cough #24 caps 04/21/21 Rx albuterol sulfate 90 mcg/actuation 2 inh inhalation Q8H PRN shortness 11/16/21 Rx aerosol inhaler (Ventolin HFA) of breath or wheezing #8.5 grams Past Med/Surg History Medical History Asthma stable Diabetes NIDDM History of lipoma Morbid obesity Surgical wound, non healing Following with wound clinic ([facility]) Surgical History History of incision and drainage Abdominal abscess I& : Grade view 1, MAC#3, ETT 7.0 at [facility] Hx of cholecystectomy 5+ years ago Family History Aunt Breast cancer maternal Denies family history of Ovarian cancer Colorectal cancer Social History Smoking Status: Never smoker Tobacco Type: E-cigarettes / Vaping Second Hand Exposure: No; Hx Alcohol Use: Yes Alcohol type: wine and hard liquor Hx Substance Use: Yes Non-Prescribed Medications: Marijuana Preferred Language: Paraguayan Communication Ability: Effective Visual Impairment: Limited Hearing Ability: Normal Green Chain Puller Required: No Beliefs That Will Affect Care: None marital status: Single Current Living Situation: Significant Other current occupational status: unemployed How many Children do You have: 0 Feels Safe at Home: Yes during the past year weight has: remained stable Assistive Devices: None Review of Systems Review of Systems: All systems reviewed & are unremarkable except as noted in HPI & below Physical Exam Physical Exam: General: patient in acute respiratory distress, improved from initial presentation, she is visibly tachypneic, speaking in short sentences Skin: warm, dry, intact, no rashes or lesions, no cyanosis HEENT: NC/AT, PERRL, EOMI, anicteric sclera, conjunctiva without injection, external ear normal to inspection and nontender, nares patent, moist mucus membranes, dentition intact, no oropharyngeal lesions, neck supple, trachea midline, no LAD, no thyromegaly, no JVD Heart: +S1/S2, regular, tachycardic, no m/r/g Lungs: tachypneic, mildly diminished breath sounds with coarse rhonchi throughout and diffuse end-expiratory wheezing Abd: +BS, soft, NT/ND, no masses/organomegaly/ascites Ext: warm, 2+ pulses in UE/LE bilaterally, no clubbing/cyanosis or edema Neuro: nonfocal, patient AA&O x 4, speech intact, no facial droop, moving all extremities on command with equal strength 5/5 Results & Data Results & Data ([facility]) Vital Signs (Past 12 Hours) Vital Signs Temp Pulse Pulse Resp BP BP Pulse Ox 03/02/22 18:21 03/02/22 16:25 101 H 26 H 99 03/02/22 15:41 03/02/22 15:41 97 H 98 03/02/22 15:41 03/02/22 14:52 104 H 26 H 94 03/02/22 14:08 101 H 26 H 94 03/02/22 11:42 100 H 24 92 03/02/22 11:40 104 H 91 03/02/22 11:40 03/02/22 10:06 97 H 16 166/108 H 96 03/02/22 09:29 101 H 16 97 03/02/22 08:59 37.0 C 03/02/22 07:35 104 H 18 149/90 H 96 Pulse Ox O2 Del Method O2 Del Method O2 Flow Rate FiO2 03/02/22 18:21 High Flow Nasal Cannula 35 40 03/02/22 16:25 Oxymask 15 03/02/22 15:41 High Flow Nasal Cannula, Other 03/02/22 15:41 High Flow Nasal Cannula 03/02/22 15:41 High Flow Nasal Cannula, Other 03/02/22 14:52 High Flow Nasal Cannula 40 40 03/02/22 14:08 High Flow Nasal Cannula 40 40 03/02/22 11:42 High Flow Nasal Cannula 40 40 03/02/22 11:40 High Flow Nasal Cannula, Other 03/02/22 11:40 90 High Flow Nasal Cannula, Other 03/02/22 10:06 High Flow Nasal Cannula 03/02/22 09:29 Room Air 03/02/22 08:59 03/02/22 07:35 High Flow Nasal Cannula Laboratory Results Laboratory Results WBC 15.80 K/ul (4.8-10.8) H 03/02/22 05:30 RBC 4.90 M/uL (3.93-5.22) 03/02/22 05:30 Hgb 13.7 g/dl (12.0-16.0) 03/02/22 05:30 POC Hgb 13.9 g/dl (12.0-16.0) 03/02/22 05:43 Hct 41.8 % (34.1-44.9) 03/02/22 05:30 POC Hct 41 % (37-47) 03/02/22 05:43 MCV 85.3 fL (80.0-100.0) 03/02/22 05:30 MCH 28.0 pg (25.0-34.0) 03/02/22 05:30 MCHC 32.8 g/dL (32.0-36.0) 03/02/22 05:30 RDW Std Deviation 40.0 fL (36.4-46.3) 03/02/22 05:30 RDW Coeff of Wily 12.9 % (11.5-14.5) 03/02/22 05:30 Plt Count 307 K/uL (130-400) 03/02/22 05:30 MPV 10.8 fL (9.4-12.3) 03/02/22 05:30 Immature Gran % (Auto) 0.5 % 03/02/22 05:30 Neut % (Auto) 84.5 % 03/02/22 05:30 Lymph % (Auto) 6.8 % 03/02/22 05:30 Knott % (Auto) 5.2 % 03/02/22 05:30 Eos % (Auto) 2.7 % 03/02/22 05:30 Baso % (Auto) 0.3 % 03/02/22 05:30 Neut # (Auto) 13.36 K/uL (1.4-6.5) H 03/02/22 05:30 Lymph # (Auto) 1.07 K/uL (1.2-3.4) L 03/02/22 05:30 Knott # (Auto) 0.82 K/uL (0.24-0.82) 03/02/22 05:30 Eos # (Auto) 0.43 K/uL (0-0.50) 03/02/22 05:30 Baso # (Auto) 0.04 K/uL (0-0.2) 03/02/22 05:30 Immature Gran # (Auto) 0.08 K/uL (0.00-0.02) H 03/02/22 05:30 POC pH 7.42 (7.35-7.45) 03/02/22 05:43 POC pCO2 39 mmHg (35-46) 03/02/22 05:43 POC pO2 66 mmHg (80-95) L 03/02/22 05:43 POC HCO3 25 brayan/L (19-24) H 03/02/22 05:43 POC Total CO2 26 mmol/L (24-31) 03/02/22 05:43 POC Base Excess 1.0 brayan/L (-9-1.8) 03/02/22 05:43 POC ABG O2 Sat 93.0 % (90-95) 03/02/22 05:43 POC Sodium 135 mmol/L (135-144) 03/02/22 05:43 Sodium 134 mmol/L (136-145) L 03/02/22 05:30 POC Potassium 4.1 mmol/L (3.3-5.0) 03/02/22 05:43 Potassium 4.0 mmol/L (3.5-5.1) 03/02/22 05:30 Chloride 98 mmol/L (98-107) 03/02/22 05:30 Carbon Dioxide 25 mmol/L (21-32) 03/02/22 05:30 Anion Gap 11 (3-11) 03/02/22 05:30 BUN 6 mg/dl (6-23) 03/02/22 05:30 Creatinine 0.55 mg/dl (0.6-1.2) L 03/02/22 05:30 Est Cr Clr Drug Dosing 189.4 ml/min 03/02/22 05:30 Est GFR ( Amer) 144.9 ml/min 03/02/22 05:30 Est GFR (Non-Af Amer) 125.0 ml/min 03/02/22 05:30 BUN/Creatinine Ratio 10.9 (10-20) 03/02/22 05:30 Glucose 338 mg/dl (70-99(Fasting)) H* 03/02/22 05:30 POC Glucose 310 mg/dl (70-99) H* 03/02/22 16:26 Lactate 1.9 mmol/L (0.4-2.0) 03/02/22 07:58 Calcium 9.6 mg/dl (8.5-10.1) 03/02/22 05:30 Magnesium 1.6 mg/dl (1.7-2.4) L 03/02/22 05:30 Total Bilirubin 0.7 mg/dl (0.2-1.0) 03/02/22 05:30 AST 17 U/L (13-39) 03/02/22 05:30 ALT 23 U/L (7-52) 03/02/22 05:30 Alkaline Phosphatase 99 U/L (34-104) 03/02/22 05:30 Troponin I High Sens 8.0 pg/ml (0-14) 03/02/22 05:30 B-Natriuretic Peptide 38 pg/ml (0-100) 03/02/22 07:48 Total Protein 8.3 gm/dl (6.0-8.3) 03/02/22 05:30 Albumin 4.2 gm/dl (3.4-5.0) 03/02/22 05:30 Globulin 4.1 gm/dl (2.5-4.0) H 03/02/22 05:30 Albumin/Globulin Ratio 1.0 (0.9-2) 03/02/22 05:30 Procalcitonin 0.08 ng/ml (0-0.5) 03/02/22 05:30 Adenovirus (PCR) Not Detected (NotDetected) 03/02/22 05:29 B. pertussis DNA (PCR) Not Detected (NotDetected) 03/02/22 05:29 B.parapertussis DNA PCR Not Detected (NotDetected) 03/02/22 05:29 C. pneumoniae DNA (PCR) Not Detected (NotDetected) 03/02/22 05:29 Coronavirus OC43 (PCR) Not Detected (NotDetected) 03/02/22 05:29 Coronavirus HKU1 (PCR) Not Detected (NotDetected) 03/02/22 05:29 Coronavirus 229E (PCR) Not Detected (NotDetected) 03/02/22 05:29 SARS-CoV-2 (PCR) DETECTED (NotDetected) A* 03/02/22 05:29 Coronavirus NL63 (PCR) Not Detected (NotDetected) 03/02/22 05:29 Human Metapneumovir PCR Not Detected (NotDetected) 03/02/22 05:29 Influenza Type A (PCR) Not Detected (NotDetected) 03/02/22 05:29 Influenza Type B (PCR) Not Detected (NotDetected) 03/02/22 05:29 M. pneumoniae (PCR) Not Detected (NotDetected) 03/02/22 05:29 Parainfluenza 1 (PCR) Not Detected (NotDetected) 03/02/22 05:29 Parainfluenza 2 (PCR) Not Detected (NotDetected) 03/02/22 05:29 Parainfluenza 3 (PCR) Not Detected (NotDetected) 03/02/22 05:29 Parainfluenza 4 (PCR) Not Detected (NotDetected) 03/02/22 05:29 RSV (PCR) Not Detected (NotDetected) 03/02/22 05:29 Entero/Rhino (PCR) DETECTED (NotDetected) A* 03/02/22 05:29 Impressions Chest X-Ray 03/02/22 05:27 XR chest 1V portable HISTORY: dyspnea COMPARISON: Chest 11/16/2021. FINDINGS: No pneumothorax. No pleural effusions. There are low lung volumes. The cardiac silhouette is mildly enlarged. Multifocal patchy bilateral airspace opacities, right greater than left. IMPRESSION: Multifocal bilateral airspace opacities likely representing a pneumonia. ACT 112: Negative or not required by law. Electronically signed by: Robi David M.D. 03/02/2022 7:23 AM PG Care Time/CCT Total # of Minutes Spent Total Time Spent with Patient: Total time spent is greater than 50% in coordination of care (as documented) at patient's floor/unit and/or counseling patient: Coding Level of Care Code 74769 INT INP/OBS CARE 3/75MIN Diagnoses Respiratory failure with hypoxia J96.91 Asthma with exacerbation J45.901 Diabetes E11.9 Acute left otitis media H66.92
[2022-03-02] MEDS: LANTUS PER UNIT CHARGE SQ SCH (20:36)
[2022-03-02] MEDS: dexAMETHasone 6 MG in SYRINGE 0 ML IV SCH (20:38)
[2022-03-02] MEDS: ENOXAPARIN INJ 40 MG/0.4 ML SYR SQ SCH (20:38)
[2022-03-03] MEDS ORDERED: ALBUT/IPRATROP 3MG/0.5MG NEB 3 ML VIAL NEB STA (02:20)
[2022-03-03] MEDS: ALBUT/IPRATROP 3MG/0.5MG NEB 3 ML VIAL NEB PRN ×2 (03:34→05:30)
[2022-03-03] MEDS: ACETAMINOPHEN 325 MG TAB PO PRN ×2 (03:39→09:07)
[2022-03-03] MEDS ORDERED: LORazepam 0.5 MG TAB ONE (04:11)
[2022-03-03] MEDS: LORAZEPAM 0.25 MG PO STA ×2 (04:14→04:35)
[2022-03-03] MEDS: SERTRALINE HCL 50 MG TABLET PO SCH ×2 (04:28→22:49)
[2022-03-03 06:55] LABS: Hemoglobin 12.9 g/dl (12.0-16.0); Mean Corpuscular Hemoglobin 27.7 pg (25.0-34.0); Mean Corpuscular Hgb Conc 32.3 g/dL (32.0-36.0); Mean Platelet Volume 10.7 fL (9.4-12.3); Platelet Count 303 K/uL (130-400); RDW Standard Deviation 40.7 fL (36.4-46.3); Red Blood Count 4.65 M/uL (3.93-5.22); White Blood Count 18.73 K/ul (4.8-10.8)
[2022-03-03] MEDS: IPRATROPIUM BROMIDE NEB SOLN 0.02% 2.5 ML VIAL INH SCH ×4 (07:10→19:15)
[2022-03-03] MEDS: LEVALBUTEROL 1.25MG/0.5ML NEB INH SCH ×4 (07:10→19:15)
[2022-03-03 07:36] LABS: Albumin Globulin Ratio 1.1 (0.9-2); Albumin Level 3.8 gm/dl (3.4-5.0); BUN Creatinine Ratio 25.9 (10-20); Bilirubin,Total 0.4 mg/dl (0.2-1.0); C Reactive Protein 9.78 mg/dl (0-0.5); Calcium 8.8 mg/dl (8.5-10.1); Creatinine Clr Calc Pharmacy 185.7 ml/min; Est GFR (African American) 145.7 ml/min; Est GFR (Non-African American) 125.7 ml/min; Globulin 3.6 gm/dl (2.5-4.0); Potassium 4.3 mmol/L (3.5-5.1); Total Protein 7.4 gm/dl (6.0-8.3)
[2022-03-03] MEDS ORDERED: PHARMACY GLYCEMIC MGMT CONSULT PRN (07:45)
[2022-03-03 07:48] LABS: Ferritin 79.7 ng/ml (8-388)
[2022-03-03 08:23] LABS: Estimated Average Glucose 240 mg/dl
[2022-03-03] MEDS ORDERED: XOPENEX/ATROVENT 1.25mg/0.5MG NEB COMBO NEB SCH (09:00)
[2022-03-03] MEDS ORDERED: AZITHROMYCIN 250 MG in DEXTROSE 5% 250 ML IV SCH (09:00)
[2022-03-03] MEDS: INSULIN ASPART PER UNIT SC SCH ×5 (09:02→23:44)
[2022-03-03] MEDS: LANTUS PER UNIT CHARGE SQ SCH ×2 (09:02→20:10)
[2022-03-03] MEDS: dexAMETHasone 6 MG in SYRINGE 0 ML IV SCH (09:07)
--- NOTE | 2022-03-03 09:28 | Pulmonology Progress Note ---
Date of Service March 03, 2022 Assessment & Plan (1) COVID-19: (2) Acute and chronic respiratory failure with hypoxia: (3) Asthma: (4) Obesity: Plan Impression: 31-year-old morbidly obese female with history of asthma presenting now with COVID pneumonitis and rhinovirus PCR positive. She has hypoxemic respiratory failure and is on high flow. She is showing some improvement over the last 24 hours Recommendations: 1. COVID pneumonitis: Continue remdesivir. CRP is only 9.7 so would hold on additional immune modulators at this point time. Continue Decadron 6 mg daily which should be enough to cover her asthma as well. Off antimicrobial therapy and follow-up for secondary infection at this point time. 2. Hypoxemic respiratory failure: Try and defend oxygen saturations of about 88%. Decreased requirement. The patient may be able to transition off high flow to conventional oxygen at this point time. If oxygen requirement should increase, would favor prone positioning and/or noninvasive positive pressure ventilation. 3. Rhinovirus positive PCR, supportive care. 4. Asthma: Decadron, prn Lauren medina. Not bronchospastic today. 5. Management of the patient's other medical issues per primary admitting service. Patient appears to be responding favorably. Continue to follow clinically. Admission and Anticipated Discharge Date Admission Date: March 02, 2022 Subjective Patient seen and examined. EMR reviewed. The patient is making improvements. She feels her breathing is less labored. She is not coughing or expectorating phlegm. She has not noted much in the way of wheezing. She was able to get some sleep last night with the assistance of her Ativan. Her oxygen requirement is coming down. Review of Systems Review of Systems: All systems reviewed & are unremarkable except as noted in Subjective Physical Exam Constitutional: + morbidly obese Neck: trachea midline, no thyromegaly Respiratory: + labored breathing and + tachypneic Auscultation: + rhonchi and + wheezes Cardiovascular: RRR, no murmur, no edema Gastrointestinal (Abdomen): normal bowel sounds, soft, nontender, no hepatosplenomegaly Musculoskeletal: Extremities: extremities normal to inspection Skin: no rashes, warm and dry Lymphatic: no cervical lymphadenopathy Results & Data Results & Data ([facility]) Vital Signs (Past 12 Hours) Vital Signs Temp Pulse Pulse Resp BP Pulse Ox O2 Del Method 03/03/22 08:00 36.6 C 99 H 18 150/83 H 95 High Flow Nasal Cannula 03/03/22 07:11 98 H 24 95 High Flow Nasal Cannula 03/03/22 05:30 89 20 96 High Flow Nasal Cannula 03/03/22 05:09 158/77 H 03/03/22 03:34 90 27 H 95 High Flow Nasal Cannula 03/03/22 03:19 175/113 H 03/03/22 02:33 36.5 C 96 H 20 92 High Flow Nasal Cannula 03/03/22 02:16 89 26 H 94 High Flow Nasal Cannula 03/02/22 23:01 98 H 24 94 High Flow Nasal Cannula 03/02/22 22:23 36.8 C 91 H 18 166/82 H 93 High Flow Nasal Cannula 03/02/22 22:17 High Flow Nasal Cannula O2 Flow Rate FiO2 03/03/22 08:00 03/03/22 07:11 30 35 03/03/22 05:30 40 35 03/03/22 05:09 03/03/22 03:34 40 35 03/03/22 03:19 03/03/22 02:33 5 03/03/22 02:16 40 35 03/02/22 23:01 40 35 03/02/22 22:23 03/02/22 22:17 40 35 Laboratory Results 03/03/22 06:31 03/03/22 06:31 Diagnostic Findings No new imaging PG Care Time/CCT Total # of Minutes Spent Total Time Spent with Patient: Total time spent is greater than 50% in coordination of care (as documented) at patient's floor/unit and/or counseling patient: Coding Level of Care Code 82988 SUB INP/OBS CARE 2/35MIN Diagnoses COVID-19 U07.1 Acute and chronic respiratory failure with hypoxia J96.21 Asthma J45.909 Obesity E66.9
[2022-03-03] MEDS: FLUTICASONE/VILANTEROL 100/25MCG 14 PUFFS/INHALER INH SCH (10:12)
[2022-03-03] MEDS: REMDESIVIR 100 MG in SODIUM CHLORIDE 0.9% 230 ML IV SCH (12:25)
--- NOTE | 2022-03-03 14:49 | Pharmacy Report ---
Pharmacy Glycemic Short Note 2 - Date of Service March 03, 2022 - Glycemic Short BSG Results (Last 24 hours): 03/02/22 03/02/22 03/03/22 16:26 20:22 06:31 Glucose 327 H* POC Glucose 310 H* 333 H* 03/03/22 03/03/22 03/03/22 07:40 07:41 11:32 Glucose POC Glucose 313 H* 319 H* 307 H* OUTPATIENT ANTIDIABETIC REGIMEN: * glipizide, metformin * A1c 10% ASSESSMENT: * Patients BSGs have been significantly elevated since admission, received a dose of IV dexamethasone ~midnight last night, continuing tomorrow AM * Breakfast insulin and lunch BSG check within ~2.5 hours of each other, further tightened novolog for lunch * If BSG still significantly elevated at dinner, may give IV dose or start insulin infusion (discussed with provider) PLAN FOR INPATIENT GLYCEMIC CONTROL: * Hold outpatient oral diabetes medications * Basal insulin * Lantus 20 units SQ this AM, 20 or 30 units tonight per scale * Bolus insulin * NovoLog per scale ACHS or Q6hrs while NPO * Goal Range: Low 110 mg/dL - High 140 mg/dL * Correction Factor: 15 mg/dL/unit * Nutritional / Prandial insulin per carb ratio of 1 unit per 3 grams CHO consumed
[2022-03-03] MEDS ORDERED: INSULIN INFUSION~PENDING ORDER SCH (16:30)
--- NOTE | 2022-03-03 17:43 | Hospitalist Progress Note ---
Date of Service March 03, 2022 Assessment & Plan (1) Respiratory failure with hypoxia: (2) COVID-19: (3) Asthma with exacerbation: Plan: Present on admission with worsening shortness of breath and hypoxia COVID 19 testing was positive and bio fire was positive for RSV on admission CXR showed multifocal bilateral airspace opacities likely representing a pneumonia. She was started on IV with cefepime and azithromycin and Solu-Medrol Currently on high flow oxygen currently on 40 L/min at 40% Pulmonology consulted Continue high flow oxygen for now Patient met criteria to start remdesivir due to hypoxia require high flow oxygen Continue dexamethasone 6 mg IV daily and remdesivir IV antibiotic discontinued since procalcitonin negative Continue monitor LFT while on remdesivir ESR 71 CRP 9.7 and ferritin normal Continue juan Aguilar treatment incentive spirometry Patient encouraged to prone position Continue to wean off high flow oxygen Elevate Lactate Mostly due to Hypoxia Procalcitonin negative IV ax discontinued Lactate normalized Obesity Counseling on weight loss Diabetes Most hemoglobin A1c 10 Continue monitor blood sugar closely while on IV steroid Pharmacy consulted for glycemic management Continue Lantus and insulin sliding scale DVT prophylaxis on Lovenox CODE STATUS full code Admission and Anticipated Discharge Date Admission Date: March 02, 2022 Subjective Patient was seen and examined for follow-up of shortness of breath due to COVID- 19 and RSV Sitting in bed with no acute distress with friend at bedside Patient said that she feels a lot better today compared to yesterday She said that she does not struggle to breathe and to speak today Denies any chest pain, palpitation, dizziness and fever. Review of Systems Review of Systems: All systems reviewed & are unremarkable except as noted in Subjective Physical Exam Physical Exam: General- No acute distress Head- atraumatic Eyes- PERRL, EOMI, ENT- oropharynx clear Neck- supple, no JVD Lungs-+wheezing, +rhonchi Heart- regular rhythm; no murmur Abdomen- normal bowel sounds, soft, nontender Extremities- no calf tenderness Neuro- alert, oriented x 3; PERRL, EOMI; no facial palsy; no dysarthria Skin- warm & dry Results & Data Results & Data ([facility]) Vital Signs (Past 12 Hours) Vital Signs Temp Pulse Pulse Pulse Resp BP Pulse Ox 03/03/22 16:00 37.1 C 96 H 20 158/77 H 95 03/03/22 15:33 84 18 90 03/03/22 15:18 94 H 03/03/22 12:00 37.1 C 86 18 182/92 H 92 03/03/22 11:17 90 20 95 03/03/22 11:00 03/03/22 11:07 03/03/22 08:00 93 H 03/03/22 08:00 36.6 C 99 H 18 150/83 H 95 03/03/22 07:11 98 H 24 95 Pulse Ox O2 Del Method O2 Del Method O2 Flow Rate FiO2 03/03/22 16:00 Nasal Cannula 5 03/03/22 15:33 High Flow Nasal Cannula 20 30 03/03/22 15:18 03/03/22 12:00 High Flow Nasal Cannula 20 03/03/22 11:17 High Flow Nasal Cannula 30 35 03/03/22 11:00 95 High Flow Nasal Cannula 03/03/22 11:07 High Flow Nasal Cannula 03/03/22 08:00 03/03/22 08:00 High Flow Nasal Cannula 40 03/03/22 07:11 High Flow Nasal Cannula 30 35
[2022-03-03] MEDS: ENOXAPARIN INJ 40 MG/0.4 ML SYR SQ SCH (20:21)
--- NOTE | 2022-03-04 00:44 | Communication Note ---
Date of Service: March 04, 2022 Made aware by RN of uncontrolled blood pressure. SBP 150-180s the last 24 hours. Patient anxious as per RN. AP Hypertensive urgency Likely chronic BP elevation given cardiomegaly on imaging Anxiety contributory Initiate amlodipine Anxiolytic as needed Will relay to AM provider.
[2022-03-04] MEDS ORDERED: LORazepam 0.5 MG TAB PO PRN (00:45)
[2022-03-04] MEDS: amLODIPine BESYLATE 5 MG TAB PO SCH (01:20)
[2022-03-04] MEDS: ALBUT/IPRATROP 3MG/0.5MG NEB 3 ML VIAL NEB PRN ×2 (03:26→09:51)
[2022-03-04] MEDS: INSULIN ASPART PER UNIT SC SCH ×5 (03:42→20:38)
[2022-03-04] MEDS: LEVALBUTEROL 1.25MG/0.5ML NEB INH SCH ×4 (07:22→19:20)
[2022-03-04] MEDS: IPRATROPIUM BROMIDE NEB SOLN 0.02% 2.5 ML VIAL INH SCH ×4 (07:22→19:20)
[2022-03-04 07:50] LABS: Albumin Globulin Ratio 1.2 (0.9-2); Albumin Level 3.7 gm/dl (3.4-5.0); BUN Creatinine Ratio 26.7 (10-20); Bilirubin,Total 0.4 mg/dl (0.2-1.0); C Reactive Protein 5.87 mg/dl (0-0.5); Calcium 8.3 mg/dl (8.5-10.1); Creatinine Clr Calc Pharmacy 167.1 ml/min; Est GFR (African American) 140.8 ml/min; Est GFR (Non-African American) 121.5 ml/min; Globulin 3.2 gm/dl (2.5-4.0); Potassium 3.7 mmol/L (3.5-5.1); Total Protein 6.9 gm/dl (6.0-8.3)
[2022-03-04] MEDS: LANTUS PER UNIT CHARGE SQ SCH ×2 (09:08→20:38)
[2022-03-04] MEDS: FLUTICASONE/VILANTEROL 100/25MCG 14 PUFFS/INHALER INH SCH (09:08)
[2022-03-04] MEDS: dexAMETHasone 6 MG in SYRINGE 0 ML IV SCH (09:08)
[2022-03-04 10:08] LABS: Appearance Urine Cloudy (Clear); Bacteria Urine Automated 1+ (Negative); Bilirubin Urine Negative (Negative); Blood Urine Negative (Negative); Color Urine Yellow; Epithelial Cell Urine Auto >30 /lpf (0-5); Glucose Urine UA Negative (Negative); Ketones Urine Trace (Negative); Leukocyte Esterase Urine 2+ (Negative); Nitrite Urine Negative (Negative); Protein Urine 1+ (Negative); RBC Urine Automated 0-4 /hpf (0-4); Specific Gravity Urine 1.025 (1.000-1.030); Urobilinogen Urine Negative (Negative)
--- NOTE | 2022-03-04 10:11 | Pulmonology Progress Note ---
Date of Service March 04, 2022 Assessment & Plan (1) COVID-19: (2) Acute and chronic respiratory failure with hypoxia: (3) Asthma: (4) Obesity: Plan Impression: 31-year-old morbidly obese female with history of asthma presenting now with COVID pneumonitis and rhinovirus PCR positive. Her oxygenation continues to improve and she has been weaned down to conventional oxygen at this point time. Recommendations: 1. COVID pneumonitis: Continue remdesivir. CRP is only 9.7 so would hold on additional immune modulators at this point time. Continue Decadron 6 mg daily which should be enough to cover her asthma as well. Off antimicrobial therapy and follow-up for secondary infection at this point time. We will discontinue steroids when off oxygen 2. Hypoxemic respiratory failure: Try and defend oxygen saturations of about 88%. Decreased requirement. 3. Rhinovirus positive PCR, supportive care. 4. Asthma: Decadron, prn nebs, Breo 5. Management of the patient's other medical issues per primary admitting service. Patient is significantly improved at this point time. Expect her to continue to show slow and steady clinical improvement. Pulmonary will sign off. Feel free to contact us should the patient's clinical condition worsen. Admission and Anticipated Discharge Date Admission Date: March 02, 2022 Subjective Chart reviewed. Hypertensive overnight otherwise no acute events. Oxygen weaned Physical Exam Physical Exam: Exam deferred Results & Data Results & Data ([facility]) Vital Signs (Past 12 Hours) Vital Signs Temp Pulse Pulse Resp BP Pulse Ox O2 Del Method 03/04/22 09:51 78 18 94 Nasal Cannula 03/04/22 07:22 78 20 99 Nasal Cannula 03/04/22 06:55 37.0 C 87 21 169/98 H 99 Nasal Cannula 03/04/22 03:33 36.6 C 97 H 21 180/103 H 96 Nasal Cannula 03/04/22 03:26 98 H 22 96 Nasal Cannula 03/04/22 01:15 37.0 C 90 14 174/106 H 98 Nasal Cannula 03/03/22 22:17 Nasal Cannula O2 Flow Rate 03/04/22 09:51 4 03/04/22 07:22 6 03/04/22 06:55 6 03/04/22 03:33 6 03/04/22 03:26 6 03/04/22 01:15 5 03/03/22 22:17 5 PG Care Time/CCT Total # of Minutes Spent Total Time Spent with Patient: Total time spent is greater than 50% in coordination of care (as documented) at patient's floor/unit and/or counseling patient: Coding Level of Care Code 30751 SUB INP/OBS CARE 25MIN Diagnoses COVID-19 U07.1 Acute and chronic respiratory failure with hypoxia J96.21 Asthma J45.909 Obesity E66.9
[2022-03-04] MEDS: REMDESIVIR 100 MG in SODIUM CHLORIDE 0.9% 230 ML IV SCH (12:01)
--- NOTE | 2022-03-04 16:57 | Hospitalist Progress Note ---
Date of Service March 04, 2022 Assessment & Plan (1) Respiratory failure with hypoxia: (2) COVID-19: (3) Asthma with exacerbation: Plan: Present on admission with worsening shortness of breath and hypoxia COVID 19 testing was positive and bio fire was positive for RSV on admission CXR showed multifocal bilateral airspace opacities likely representing a pneumonia. She was started on IV with cefepime and azithromycin and Solu-Medrol Currently on high flow oxygen currently on 40 L/min at 40% Pulmonology consulted Continue high flow oxygen for now Patient met criteria to start remdesivir due to hypoxia require high flow oxygen Continue dexamethasone 6 mg IV daily and remdesivir IV antibiotic discontinued since procalcitonin negative Continue monitor LFT while on remdesivir inflammatory markers decreased to ESR 63 and CRP 5.87 and ferritin normal Continue juan Aguilar treatment incentive spirometry Continue encouraging to prone position Pt wean off high flow oxygen, currently on 6L NC Elevate Lactate Mostly due to Hypoxia Procalcitonin negative IV ax discontinued Lactate normalized Obesity BMI 51.3 Counseling on weight loss Diabetes Most hemoglobin A1c 10 Continue monitor blood sugar closely while on IV steroid Pharmacy consulted for glycemic management Continue Lantus and insulin sliding scale Continue monitor BS DVT prophylaxis on Lovenox CODE STATUS full code Admission and Anticipated Discharge Date Admission Date: March 02, 2022 Subjective Patient was seen and examined for follow-up of shortness of breath due to COVID- 19 and RSV Sitting in chair with no acute distress watching TV Patient said that she feels a lot better today Denies any chest pain, palpitation, dizziness and fever. Review of Systems Review of Systems: All systems reviewed & are unremarkable except as noted in Subjective Physical Exam Physical Exam: General- No acute distress Head- atraumatic Eyes- PERRL, EOMI, ENT- oropharynx clear Neck- supple, no JVD Lungs- Decrease BS Heart- regular rhythm; no murmur Abdomen- normal bowel sounds, soft, nontender Extremities- no calf tenderness Neuro- alert, oriented x 3; PERRL, EOMI; no facial palsy; no dysarthria Skin- warm & dry Results & Data Results & Data ([facility]) Vital Signs (Past 12 Hours) Vital Signs Temp Pulse Pulse Resp BP Pulse Ox O2 Del Method 03/04/22 16:16 36.9 C 76 20 115/69 97 Nasal Cannula 03/04/22 15:13 71 18 97 Nasal Cannula 03/04/22 15:03 74 03/04/22 08:04 85 03/04/22 11:17 37.1 C 87 24 142/89 H 95 Nasal Cannula 03/04/22 10:31 Nasal Cannula 03/04/22 09:51 78 18 94 Nasal Cannula 03/04/22 07:22 78 20 99 Nasal Cannula 03/04/22 06:55 37.0 C 87 21 169/98 H 99 Nasal Cannula O2 Flow Rate 03/04/22 16:16 6.0 03/04/22 15:13 6 03/04/22 15:03 03/04/22 08:04 03/04/22 11:17 4.0 03/04/22 10:31 5 03/04/22 09:51 4 03/04/22 07:22 6 03/04/22 06:55 6
[2022-03-05 06:25] LABS: Hematocrit (blood only) 39.3 % (34.1-44.9); Hemoglobin 12.7 g/dl (12.0-16.0); Mean Corpuscular Hgb Conc 32.3 g/dL (32.0-36.0); Mean Corpuscular Volume 86.6 fL (80.0-100.0); Mean Platelet Volume 10.3 fL (9.4-12.3); Platelet Count 314 K/uL (130-400); RDW Standard Deviation 40.8 fL (36.4-46.3); Red Blood Count 4.54 M/uL (3.93-5.22); White Blood Count 14.35 K/ul (4.8-10.8)
[2022-03-05 07:09] LABS: Albumin Globulin Ratio 1.1 (0.9-2); Albumin Level 3.7 gm/dl (3.4-5.0); BUN Creatinine Ratio 24.1 (10-20); Bilirubin,Total 0.4 mg/dl (0.2-1.0); Calcium 8.7 mg/dl (8.5-10.1); Creatinine Clr Calc Pharmacy 186.5 ml/min; Est GFR (African American) 145.7 ml/min; Est GFR (Non-African American) 125.7 ml/min; Globulin 3.4 gm/dl (2.5-4.0); Potassium 4.1 mmol/L (3.5-5.1); Total Protein 7.1 gm/dl (6.0-8.3)
[2022-03-05] MEDS: LEVALBUTEROL 1.25MG/0.5ML NEB INH SCH ×4 (07:25→19:17)
[2022-03-05] MEDS: IPRATROPIUM BROMIDE NEB SOLN 0.02% 2.5 ML VIAL INH SCH ×4 (07:25→19:17)
[2022-03-05] MEDS: SERTRALINE HCL 50 MG TABLET PO SCH (08:24)
[2022-03-05] MEDS: dexAMETHasone 6 MG in SYRINGE 0 ML IV SCH (08:25)
[2022-03-05] MEDS: FLUTICASONE/VILANTEROL 100/25MCG 14 PUFFS/INHALER INH SCH (08:25)
[2022-03-05] MEDS: INSULIN ASPART PER UNIT SC SCH ×4 (08:42→20:08)
[2022-03-05] MEDS: LANTUS PER UNIT CHARGE SQ SCH ×2 (08:42→20:08)
[2022-03-05] MEDS: amLODIPine BESYLATE 5 MG TAB PO SCH (09:51)
[2022-03-05] MEDS: REMDESIVIR 100 MG in SODIUM CHLORIDE 0.9% 230 ML IV SCH (12:41)
--- NOTE | 2022-03-05 15:07 | Pharmacy Report ---
Pharmacy Glycemic Short Note 2 - Date of Service March 05, 2022 - Glycemic Short BSG Results (Last 24 hours): 03/04/22 03/04/22 03/05/22 16:14 20:17 05:55 Glucose 100 H POC Glucose 298 H 243 H 03/05/22 03/05/22 07:12 11:19 Glucose POC Glucose 112 H 194 H OUTPATIENT ANTIDIABETIC REGIMEN: * glipizide, metformin * A1c 10% ASSESSMENT: 03/04: * BSGs were elevated on 03/03 and yesterday. Patient received 40 units of basal on the and 45 units yesterday. She received total of 50 units of Novolog bolus yesterday. * Fasting BSG today was finally at goal 100 mg/dl. Basal increased to 25 units BID. * Novolog parameters continued the same. 03/03/22: * Patients BSGs have been significantly elevated since admission, received a dose of IV dexamethasone ~midnight last night, continuing tomorrow AM * Breakfast insulin and lunch BSG check within ~2.5 hours of each other, further tightened novolog for lunch * If BSG still significantly elevated at dinner, may give IV dose or start insulin infusion (discussed with provider) PLAN FOR INPATIENT GLYCEMIC CONTROL: * Hold outpatient oral diabetes medications * Basal insulin * Lantus 25 units SQ BID * Bolus insulin * NovoLog per scale ACHS or Q6hrs while NPO * Goal Range: Low 110 mg/dL - High 140 mg/dL * Correction Factor: 15 mg/dL/unit * Nutritional / Prandial insulin per carb ratio of 1 unit per 3 grams CHO consumed
--- NOTE | 2022-03-05 18:10 | Hospitalist Progress Note ---
Date of Service March 05, 2022 Assessment & Plan (1) Respiratory failure with hypoxia: (2) COVID-19: (3) Asthma with exacerbation: Plan: Present on admission with worsening shortness of breath and hypoxia COVID 19 testing was positive and bio fire was positive for RSV on admission CXR showed multifocal bilateral airspace opacities likely representing a pneumonia. She was started on IV with cefepime and azithromycin and Solu-Medrol Currently on high flow oxygen currently on 40 L/min at 40% Pulmonology consulted Continue high flow oxygen for now Patient met criteria to start remdesivir due to hypoxia require high flow oxygen Continue dexamethasone 6 mg IV daily and remdesivir IV antibiotic discontinued since procalcitonin negative Continue monitor LFT while on remdesivir inflammatory markers decreased to ESR 63 and CRP 5.87 and ferritin normal Continue juan Aguilar treatment incentive spirometry Continue encouraging to prone position Pt wean off high flow oxygen, currently on 3L NC Will continue wean her off oxygen Elevate Lactate Mostly due to Hypoxia Procalcitonin negative IV ax discontinued Lactate normalized Obesity BMI 51.3 Counseling on weight loss Diabetes Most hemoglobin A1c 10 Continue monitor blood sugar closely while on IV steroid Pharmacy consulted for glycemic management Continue Lantus and insulin sliding scale Continue monitor BS DVT prophylaxis Lovenox on hold due to nose bleeding SCD added CODE STATUS full code Admission and Anticipated Discharge Date Admission Date: March 02, 2022 Subjective Patient was seen and examined for follow-up of shortness of breath due to COVID- 19 and RSV Sitting in chair with no acute distress cleaning herself Patient said that she feels a lot better today Currently she is on 3L nasal canula Denies any chest pain, palpitation, dizziness and fever. Review of Systems Review of Systems: All systems reviewed & are unremarkable except as noted in Subjective Physical Exam Physical Exam: General- No acute distress Head- atraumatic Eyes- PERRL, EOMI, ENT- oropharynx clear Neck- supple, no JVD Lungs- Decrease BS Heart- regular rhythm; no murmur Abdomen- normal bowel sounds, soft, nontender Extremities- no calf tenderness Neuro- alert, oriented x 3; PERRL, EOMI; no facial palsy; no dysarthria Skin- warm & dry Results & Data Results & Data ([facility]) Vital Signs (Past 12 Hours) Vital Signs Temp Pulse Pulse Resp BP Pulse Ox O2 Del Method 03/05/22 15:58 85 03/05/22 15:37 37.0 C 73 21 148/83 H 95 Nasal Cannula 03/05/22 15:14 18 97 Nasal Cannula 03/05/22 11:43 37.0 C 70 22 136/76 97 Nasal Cannula 03/05/22 11:17 84 18 97 Nasal Cannula 03/05/22 10:32 Nasal Cannula 03/05/22 07:40 74 03/05/22 07:25 79 18 99 Nasal Cannula 03/05/22 07:13 36.9 C 64 18 176/97 H 98 Nasal Cannula O2 Flow Rate 03/05/22 15:58 03/05/22 15:37 2.0 03/05/22 15:14 3 03/05/22 11:43 4.0 03/05/22 11:17 4 03/05/22 10:32 4 03/05/22 07:40 03/05/22 07:25 6 03/05/22 07:13 6
[2022-03-06] MEDS: LEVALBUTEROL 1.25MG/0.5ML NEB INH SCH ×3 (07:01→16:05)
[2022-03-06] MEDS: IPRATROPIUM BROMIDE NEB SOLN 0.02% 2.5 ML VIAL INH SCH ×3 (07:01→16:05)
[2022-03-06] MEDS: LANTUS PER UNIT CHARGE SQ SCH (08:59)
[2022-03-06] MEDS: INSULIN ASPART PER UNIT SC SCH ×3 (08:59→16:36)
[2022-03-06] MEDS: dexAMETHasone 6 MG in SYRINGE 0 ML IV SCH (09:01)
[2022-03-06] MEDS: FLUTICASONE/VILANTEROL 100/25MCG 14 PUFFS/INHALER INH SCH (09:02)
[2022-03-06] MEDS: amLODIPine BESYLATE 5 MG TAB PO SCH (09:02)
[2022-03-06] MEDS: SERTRALINE HCL 50 MG TABLET PO SCH (09:02)
[2022-03-06] MEDS ORDERED: SODIUM CHLORIDE 0.65% NA SOLN 45 ML (OCEAN) PRN (11:13)
[2022-03-06] MEDS: REMDESIVIR 100 MG in SODIUM CHLORIDE 0.9% 230 ML IV SCH (11:39)
[2022-03-06] MEDS: ALBUT/IPRATROP 3MG/0.5MG NEB 3 ML VIAL NEB PRN (11:45)
[2022-03-06] MEDS ORDERED: ONDANSETRON INJ 2 MG/ML 2 ML VIAL IV STA (12:10)
--- NOTE | 2022-03-06 16:20 | Discharge Summary ---
Date of Service March 06, 2022 Admission HPI Per Admitting Provider Aleksandra Carl is a 31yo female with history of asthma and DM presenting with acute exacerbation of asthma. Patient has been having several days of congestion, rhinorrhea and earache for the last 2-3 days. She was diagnosed with an ear infection and started on some antibiotics. Today she had progressive SOB and wheeze which developed into acute respiratory distress prompting her to come to the ER. Has longstanding history of asthma on Advair and Albuterol at home. She has never been intubated for her asthma but has been in the MICU before. Upon arrival to the ER patient was in respiratory distress. She tachypneic and hypoxic on arrival with saturation of 70% on room air. She was administered Magnesium, Neb treatment, Solumedrol 125mg and placed on high flow nasal cannula with some improvement. Persistently tachycardic and tachypneic. During my encounter patient still visibly tachypneic, states that she was feeling a little better. No additional complaints. She denies fever, chills, abdominal pain. Had some nausea and vomiting following her antibiotic dose but otherwise no GI complaints. ER Course: Albuterol, Magnesium, NSS x 1L, Ceftriaxone, Tylenol, Solumedrol, Zofran Admission Exam Per Admitting Provider General: patient in acute respiratory distress, improved from initial presentation, she is visibly tachypneic, speaking in short sentences Skin: warm, dry, intact, no rashes or lesions, no cyanosis HEENT: NC/AT, PERRL, EOMI, anicteric sclera, conjunctiva without injection, external ear normal to inspection and nontender, nares patent, moist mucus membranes, dentition intact, no oropharyngeal lesions, neck supple, trachea midline, no LAD, no thyromegaly, no JVD Heart: +S1/S2, regular, tachycardic, no m/r/g Lungs: tachypneic, mildly diminished breath sounds with coarse rhonchi throughout and diffuse end-expiratory wheezing Abd: +BS, soft, NT/ND, no masses/organomegaly/ascites Ext: warm, 2+ pulses in UE/LE bilaterally, no clubbing/cyanosis or edema Neuro: nonfocal, patient AA&O x 4, speech intact, no facial droop, moving all extremities on command with equal strength 5/5 Principal Diagnosis Respiratory failure with hypoxia: COVID-19: Asthma with exacerbation: Elevate Lactate Mostly due to Hypoxia Procalcitonin negative IV ax discontinued Lactate normalized Diabetes Discharge Exam General- No acute distress Head- atraumatic Eyes- PERRL, EOMI, ENT- oropharynx clear Neck- supple, no JVD Lungs- Decrease BS Heart- regular rhythm; no murmur Abdomen- normal bowel sounds, soft, nontender Extremities- no calf tenderness Neuro- alert, oriented x 3; PERRL, EOMI; no facial palsy; no dysarthria Skin- warm & dry Discharge Data Allergies Allergy/AdvReac Type Severity Reaction Status Date / Time No Known Allergies Allergy Verified 04/21/21 09:50 Consultations 03/02/22 06:44 ED Decision to Admit Stat 03/02/22 12:45 Consult Pulmonology Routine Ordered Studies Laboratory Results WBC 14.35 K/ul (4.8-10.8) H 03/05/22 05:55 RBC 4.54 M/uL (3.93-5.22) 03/05/22 05:55 Hgb 12.7 g/dl (12.0-16.0) 03/05/22 05:55 POC Hgb 13.9 g/dl (12.0-16.0) 03/02/22 05:43 Hct 39.3 % (34.1-44.9) 03/05/22 05:55 POC Hct 41 % (37-47) 03/02/22 05:43 MCV 86.6 fL (80.0-100.0) 03/05/22 05:55 MCH 28.0 pg (25.0-34.0) 03/05/22 05:55 MCHC 32.3 g/dL (32.0-36.0) 03/05/22 05:55 RDW Std Deviation 40.8 fL (36.4-46.3) 03/05/22 05:55 RDW Coeff of Wily 13.0 % (11.5-14.5) 03/05/22 05:55 Plt Count 314 K/uL (130-400) 03/05/22 05:55 MPV 10.3 fL (9.4-12.3) 03/05/22 05:55 Immature Gran % (Auto) 0.5 % 03/02/22 05:30 Neut % (Auto) 84.5 % 03/02/22 05:30 Lymph % (Auto) 6.8 % 03/02/22 05:30 Runnels % (Auto) 5.2 % 03/02/22 05:30 Eos % (Auto) 2.7 % 03/02/22 05:30 Baso % (Auto) 0.3 % 03/02/22 05:30 Neut # (Auto) 13.36 K/uL (1.4-6.5) H 03/02/22 05:30 Lymph # (Auto) 1.07 K/uL (1.2-3.4) L 03/02/22 05:30 Runnels # (Auto) 0.82 K/uL (0.24-0.82) 03/02/22 05:30 Eos # (Auto) 0.43 K/uL (0-0.50) 03/02/22 05:30 Baso # (Auto) 0.04 K/uL (0-0.2) 03/02/22 05:30 Immature Gran # (Auto) 0.08 K/uL (0.00-0.02) H 03/02/22 05:30 ESR 63 mm/hr (0-20) H 03/04/22 06:56 POC pH 7.42 (7.35-7.45) 03/02/22 05:43 POC pCO2 39 mmHg (35-46) 03/02/22 05:43 POC pO2 66 mmHg (80-95) L 03/02/22 05:43 POC HCO3 25 brayan/L (19-24) H 03/02/22 05:43 POC Total CO2 26 mmol/L (24-31) 03/02/22 05:43 POC Base Excess 1.0 brayan/L (-9-1.8) 03/02/22 05:43 POC ABG O2 Sat 93.0 % (90-95) 03/02/22 05:43 POC Sodium 135 mmol/L (135-144) 03/02/22 05:43 Sodium 139 mmol/L (136-145) 03/05/22 05:55 POC Potassium 4.1 mmol/L (3.3-5.0) 03/02/22 05:43 Potassium 4.1 mmol/L (3.5-5.1) 03/05/22 05:55 Chloride 105 mmol/L (98-107) 03/05/22 05:55 Carbon Dioxide 30 mmol/L (21-32) 03/05/22 05:55 Anion Gap 4 (3-11) 03/05/22 05:55 BUN 13 mg/dl (6-23) 03/05/22 05:55 Creatinine 0.54 mg/dl (0.6-1.2) L 03/05/22 05:55 Est Cr Clr Drug Dosing 186.5 ml/min 03/05/22 05:55 Est GFR ( Amer) 145.7 ml/min 03/05/22 05:55 Est GFR (Non-Af Amer) 125.7 ml/min 03/05/22 05:55 BUN/Creatinine Ratio 24.1 (10-20) H 03/05/22 05:55 Glucose 100 mg/dl (70-99(Fasting)) H 03/05/22 05:55 POC Glucose 187 mg/dl (70-99) H 03/06/22 16:03 Estimat Average Glucose 240 mg/dl 03/03/22 06:31 Hemoglobin A1c 10.0 % (4.5-5.6) H 03/03/22 06:31 Lactate 1.9 mmol/L (0.4-2.0) 03/02/22 07:58 Calcium 8.7 mg/dl (8.5-10.1) 03/05/22 05:55 Magnesium 1.6 mg/dl (1.7-2.4) L 03/02/22 05:30 Ferritin 79.7 ng/ml (8-388) 03/03/22 06:31 Total Bilirubin 0.4 mg/dl (0.2-1.0) 03/05/22 05:55 AST 26 U/L (13-39) 03/05/22 05:55 ALT 22 U/L (7-52) 03/05/22 05:55 Alkaline Phosphatase 79 U/L (34-104) 03/05/22 05:55 Troponin I High Sens 8.0 pg/ml (0-14) 03/02/22 05:30 C-Reactive Protein 5.87 mg/dl (0-0.5) H 03/04/22 06:56 B-Natriuretic Peptide 38 pg/ml (0-100) 03/02/22 07:48 Total Protein 7.1 gm/dl (6.0-8.3) 03/05/22 05:55 Albumin 3.7 gm/dl (3.4-5.0) 03/05/22 05:55 Globulin 3.4 gm/dl (2.5-4.0) 03/05/22 05:55 Albumin/Globulin Ratio 1.1 (0.9-2) 03/05/22 05:55 Procalcitonin 0.08 ng/ml (0-0.5) 03/02/22 05:30 Urine Color Yellow 03/04/22 09:20 Urine Appearance Cloudy (Clear) A 03/04/22 09:20 Urine pH 6.0 (4.5-7.5) 03/04/22 09:20 Ur Specific [place] 1.025 (1.000-1.030) 03/04/22 09:20 Urine Protein 1+ (Negative) H 03/04/22 09:20 Urine Glucose (UA) Negative (Negative) 03/04/22 09:20 Urine Ketones Trace (Negative) H 03/04/22 09:20 Urine Blood Negative (Negative) 03/04/22 09:20 Urine Nitrite Negative (Negative) 03/04/22 09:20 Urine Bilirubin Negative (Negative) 03/04/22 09:20 Urine Urobilinogen Negative (Negative) 03/04/22 09:20 Ur Leukocyte Esterase 2+ (Negative) H 03/04/22 09:20 Urine WBC (Auto) 5-10 /hpf (0-5) H 03/04/22 09:20 Urine RBC (Auto) 0-4 /hpf (0-4) 03/04/22 09:20 U Hyaline Cast (Auto) 1-5 /lpf (0-5) 03/04/22 09:20 U Epithel Cells (Auto) >30 /lpf (0-5) H 03/04/22 09:20 Urine Bacteria (Auto) 1+ (Negative) H 03/04/22 09:20 Adenovirus (PCR) Not Detected (NotDetected) 03/02/22 05:29 B. pertussis DNA (PCR) Not Detected (NotDetected) 03/02/22 05:29 B.parapertussis DNA PCR Not Detected (NotDetected) 03/02/22 05:29 C. pneumoniae DNA (PCR) Not Detected (NotDetected) 03/02/22 05:29 Coronavirus OC43 (PCR) Not Detected (NotDetected) 03/02/22 05:29 Coronavirus HKU1 (PCR) Not Detected (NotDetected) 03/02/22 05:29 Coronavirus 229E (PCR) Not Detected (NotDetected) 03/02/22 05:29 SARS-CoV-2 (PCR) DETECTED (NotDetected) A* 03/02/22 05:29 Coronavirus NL63 (PCR) Not Detected (NotDetected) 03/02/22 05:29 Human Metapneumovir PCR Not Detected (NotDetected) 03/02/22 05:29 Influenza Type A (PCR) Not Detected (NotDetected) 03/02/22 05:29 Influenza Type B (PCR) Not Detected (NotDetected) 03/02/22 05:29 M. pneumoniae (PCR) Not Detected (NotDetected) 03/02/22 05:29 Parainfluenza 1 (PCR) Not Detected (NotDetected) 03/02/22 05:29 Parainfluenza 2 (PCR) Not Detected (NotDetected) 03/02/22 05:29 Parainfluenza 3 (PCR) Not Detected (NotDetected) 03/02/22 05:29 Parainfluenza 4 (PCR) Not Detected (NotDetected) 03/02/22 05:29 RSV (PCR) Not Detected (NotDetected) 03/02/22 05:29 Entero/Rhino (PCR) DETECTED (NotDetected) A* 03/02/22 05:29 Impressions Chest X-Ray 03/02/22 05:27 XR chest 1V portable HISTORY: dyspnea COMPARISON: Chest 11/16/2021. FINDINGS: No pneumothorax. No pleural effusions. There are low lung volumes. The cardiac silhouette is mildly enlarged. Multifocal patchy bilateral airspace opacities, right greater than left. IMPRESSION: Multifocal bilateral airspace opacities likely representing a pneumonia. ACT 112: Negative or not required by law. Electronically signed by: Robi David M.D. 03/02/2022 7:23 AM Diabetes Follow up Diabetes Follow-up Needed for HgbA1c >9% Hospital Course (1) Respiratory failure with hypoxia: (2) COVID-19: (3) Asthma with exacerbation: Present on admission with worsening shortness of breath and hypoxia COVID 19 testing was positive and bio fire was positive for RSV on admission CXR showed multifocal bilateral airspace opacities likely representing a pneumonia. She was started on IV with cefepime and azithromycin and Solu-Medrol Currently on high flow oxygen currently on 40 L/min at 40% Pulmonology consulted Continue high flow oxygen for now Patient met criteria to start remdesivir due to hypoxia require high flow oxygen Currently on dexamethasone 6 mg IV Completed course of remdesivir IV antibiotic discontinued since procalcitonin negative inflammatory markers decreased to ESR 63 and CRP 5.87 and ferritin normal Continue juan Aguilar treatment incentive spirometry Continue encouraging to prone position She was wean off oxygen 2 step done today that required 2L NC with ambulation Elevate Lactate Mostly due to Hypoxia Procalcitonin negative IV ax discontinued Lactate normalized Obesity BMI 51.3 Counseling on weight loss and diet Diabetes Most hemoglobin A1c 10 Continue monitor blood sugar closely while on IV steroid Pharmacy consulted for glycemic management Continue Lantus and insulin sliding scale Discussed about insulin on discharge, pt said that she would prefer not to start it Will increase glipizide to 5mg BID Pt said that when they increase her metformin that she had GI side effects Continue monitor BS DVT prophylaxis Lovenox on hold due to nose bleeding On SCD CODE STATUS full code Disposition Will discharge home today Total Time Total Time Spent Total Time Spent (In Minutes): 35 minutes Discharge Plan Discharge Items Patient Disposition: Home - Self-Care Reason For Visit: ACUTE ASTHMA EXACERBATION Discharge Diagnosis: Respiratory failure with hypoxia: COVID-19 and Rhinovirus Asthma with exacerbation: Uncontrolled diabetes Condition on Discharge: Fair Activity: Resume your previous activity Non-emergency contact: Primary Care Provider Call non-emergency contact if: you have any medication questions, your symptoms worsen and your temperature is above 101 Follow-up/Referrals: Hilda Mathew DO [Primary Care Provider] - (Date & Time 03/09/2022 8:40 AM Provider Cem Peck MD [facility] ) Diet: Carb Consistent or DM2 Addtl Attending Provider Instructions: You were admitted at [facility] for respiratory failure due to COVID 19 and Rhinovirus Follow up with your primary are provider 03/09/2022 @8:40 AM Cem Peck MD [facility] Continue oxygen supplement with 2 Liter nasal canula with ambulation Continue to wear mask and practice social distance You diabetes is uncontrolled with A1C 10 Continue monitor your blood sugar and bring your blood sugar log at your next follow up with your provider Follow up a health diabetes and limited concentrated sweet intake Seek medical attention if you develop any shortness of breath Glipizide changed to 5mg twice a day Home Isolation COVID-19 Instructions The following information about Home Isolation is from the CDC Website: https://www.cdc.gov/coronavirus/2019-ncov/hcp/gotxahdv-zxcxhmu-mgemrs.html Stay home except to get medical care People who are mildly ill with COVID-19 are able to isolate at home during their illness. You should restrict activities outside your home, except for getting medical care. Do not go to work, school, or public areas. Avoid using public transportation, ride-sharing, or taxis. Separate yourself from other people and animals in your home People: As much as possible, you should stay in a specific room and away from other people in your home. Also, you should use a separate bathroom, if available. Animals: You should restrict contact with pets and other animals while you are sick with COVID-19, just like you would around other people. Although there have not been reports of pets or other animals becoming sick with COVID-19, it is still recommended that people sick with COVID-19 limit contact with animals until more information is known about the virus. When possible, have another member of your household care for your animals while you are sick. If you are sick with COVID-19, avoid contact with your pet, including petting, snuggling, being kissed or licked, and sharing food. If you must care for your pet or be around animals while you are sick, wash your hands before and after you interact with pets and wear a face mask. Call ahead before visiting your doctor If you have a medical appointment, call the healthcare provider and tell them that you have or may have COVID-19. This will help the healthcare providers office take steps to keep other people from getting infected or exposed. Wear a face mask You should wear a face mask when you are around other people (e.g., sharing a room or vehicle) or pets and before you enter a healthcare providers office. If you are not able to wear a face mask (for example, because it causes trouble breathing), then people who live with you should not stay in the same room with you, or they should wear a face mask if they enter your room. Cover your coughs and sneezes Cover your mouth and nose with a tissue when you cough or sneeze. Throw used tissues in a lined trash can. Immediately wash your hands with soap and water for at least 20 seconds or, if soap and water are not available, clean your hands with an alcohol-based hand jalousie installer that contains at least 60% alcohol. Clean your hands often Wash your hands often with soap and water for at least 20 seconds, especially after blowing your nose, coughing, or sneezing; going to the bathroom; and before eating or preparing food. If soap and water are not readily available, use an alcohol-based hand jalousie installer with at least 60% alcohol, covering all surfaces of your hands and rubbing them together until they feel dry. Soap and water are the best option if hands are visibly dirty. Avoid touching your eyes, nose, and mouth with unwashed hands. Avoid sharing personal household items You should not share dishes, drinking glasses, cups, eating utensils, towels, or bedding with other people or pets in your home. After using these items, they should be washed thoroughly with soap and water. Clean all high-touch surfaces everyday High touch surfaces include counters, tabletops, doorknobs, bathroom fixtures, toilets, phones, keyboards, tablets, and bedside tables. Also, clean any surfaces that may have blood, stool, or body fluids on them. Use a household cleaning spray or wipe, according to the label instructions. Labels contain instructions for safe and effective use of the cleaning product including precautions you should take when applying the product, such as wearing gloves and making sure you have good ventilation during use of the product. Monitor your symptoms Seek prompt medical attention if your illness is worsening (e.g., difficulty breathing).Beforeseeking care, call your healthcare provider and tell them that you have, or are being evaluated for, COVID-19. Put on a face mask before you enter the facility. These steps will help the healthcare providers office to keep other people in the office or waiting room from getting infected or exposed. Ask your healthcare provider to call the local or state health department. Persons who are placed under active monitoring or facilitated self- monitoring should follow instructions provided by their local health department or occupational health professionals, as appropriate. When working with your local health department check their available hours. If you have a medical emergency and need to call 911, notify the dispatch personnel that you have, or are being evaluated for COVID-19. If possible, put on a face mask before emergency medical services arrive. Discontinuing home isolation Patients with confirmed COVID-19 should remain under home isolation precautions until the risk of secondary transmission to others is thought to be low. The decision to discontinue home isolation precautions should be made on a [id number] basis, in consultation with healthcare providers and state and [place] [facility] health departments. Coronavirus disease 2019 (COVID-19) is a virus that causes a respiratory illness. It is caused by a coronavirus called 2019 novel coronavirus (2019- nCoV). There are many types of coronavirus. Coronaviruses are a very common cause of bronchitis. They may sometimes cause lung infection(pneumonia). Symptoms can range from mild to severe respiratory illness. These viruses are also foundin some animals. COVID-19 was first found in people in [facility], in late 2019. In 2020, several cases of COVID-19 have been confirmed in the [place] Public health officials are working to find the source. How the virus spreads is not yet fully known. It may be spread through droplets of fluid that a person coughs or sneezes into the air. It may be spread if you touch a surface with virus on it, such as a handle or object, and then touch your mouth. What are the symptoms of COVID-19? Some people have no symptoms or mild symptoms. Symptoms may appear 2 to 14 days after contact with the virus. Symptoms can include: Fever Coughing Trouble breathing What are possible complications from COVID-19? In many cases, this virus can cause infection (pneumonia) in both lungs. In some cases, this can cause . How is COVID-19 diagnosed? Your healthcare provider will ask about your symptoms. He or she will also ask about your recent travel and contact with sick people. Testing for the virus is only done through the CDC. If yourhealthcare provider thinks you may have COVID- 19, he or she will work with your local health department and the CDC on testing. Follow all instructions from your healthcare provider. COVID-19 is diagnosed by: Nasal and throat swab. A cotton-tipped swab is wiped inside your nose or throat. This is done to check for viruses in your nasal mucus. Sputum culture. A small sample of mucus coughed from your lungs (sputum) is collected if you have a cough. It is checked for the virus. How is COVID-19 treated? There is currently no medicine to treat the virus. Treatment is done to help your body while it fights the virus. This is known as supportive care. Supportive care may include: Pain medicine. These include acetaminophen and ibuprofen. They are used to help ease pain and reduce fever. Bed rest. This helps your body fight the illness. For severe illness, you may need to stay in the hospital. Care during severe illness may include: IV (intravenous) fluids.These are given through a vein to help keep your body hydrated. Oxygen. Supplemental oxygen or ventilation with a breathing machine (ventilator) may be given. This is done to keep enough oxygen in your body. Are you at risk for COVID-19? If youve been to a place where people have been sick with this virus, you are at risk for infection. You are at risk if you: Recently traveled to an affected area Had contact with a sick person who recently traveled to this area Had contact with a person who was diagnosed with COVID-19 How can COVID-19 be prevented? There is no vaccine yet. The best prevention is to not have contact with the virus. The CDC advises that people should not travel to areas where there are COVID-19 outbreaks right now for any reason that is not urgent. To help prevent spreading the infection, wash your hands often, or use an alcohol-basedhand jalousie installer. If you are in an area with COVID-19: Wash your hands often. Or use an alcohol-based hand jalousie installer often. Only touch your eyes, nose, or mouth with clean hands. Dont have contact with people who are sick. Follow local instructions about being in public. For example, you may be told to not use public transport for a period of time. Stay away from markets that have live or animals. Wash your hands after touching any animals. Don't touch animals that may be sick. Dont share eating or drinking tools with sick people. Dont kiss someone who is sick. Clean surfaces often with disinfectant. If you were in an area with COVID-19 in the last 14 days: Call your healthcare provider. He or she can talk with local health staff to see what action may be needed. Follow all instructions from your provider. Take your temperature every morning and evening for at least 14 days. This is to check for fever. Keep a record of the readings. Keep watch for symptoms of the virus. Tell your provider right away if you have symptoms. If you were in an area with COVID-19 and have a fever or other symptoms: Dont panic. Keep in mind that other illnesses can cause similar symptoms. Stay away from work, school, and public places. Limit physical contact with family members. Don't kiss anyone or share eating or drinking utensils. Clean surfaces you touch with disinfectant. This is to help prevent the virus from spreading. Call your healthcare provider. Explain that you have been exposed to COVID-19 and have symptoms. Do this before going to any hospital. Wait for instructions. Keep in mind that healthcare staff may wear protective equipment such as masks, gowns, gloves, and eye protection. You may be put in a separate room. This is to prevent the possible virus from spreading. Tell the healthcare staff about recent travel. This includes local travel on public transport. Staff may need to find other people you have been in contact with. Follow all instructions the healthcare staff give you. If you have been diagnosed with COVID-19 Follow all instructions from your healthcare provider. Dont leave your home, except to get medical care. Call your healthcare providers office before going. They can prepare and give you instructions. This will help prevent the virus from spreading. Dont go to work, school, or public areas. Dont use public transport or taxis. Stay away from other people in your home. Have them wear face masks around you. Dont share household items or food. Wear a face mask if you can. This includes at home or in a medical facility. Cover your face with a tissue when you cough or sneeze. Throw the tissue away. Wash your hands. Wash your hands often. Caregivers should: Follow all instructions from healthcare staff. Wear a face mask and protective clothing as advised. Wash hands often. Keep track of the sick persons symptoms. Clean surfaces, fabrics, and laundry thoroughly. Keep other people away from the sick person. When to call your healthcare provider Call your healthcare provider: If youve recently traveled and have symptoms If you have been diagnosed with COVID-19 and your symptoms are worse To learn more To find out more about COVID-19, visit the CDC website at www.cdc.gov/coronavirus/2019-ncov/index.html. [employer]. [address] [place] [address]. All rights reserved. This information is not intended as a substitute for professional medical care. Always follow your healthcare professional's instructions. This information has been adapted from [employer] Pending Studies at Discharge: No Stand-Alone Forms: [facility], Work/School Release, Smoking Cessation Medications and DC Order Prescriptions: New prednisone 20 mg tablet 20 mg PO DAILY 3 Days Qty: 3 0RF ipratropium-albuterol 0.5 mg-3 mg(2.5 mg base)/3 mL Solution For Nebulization 3 ml NEB Q6H PRN (Reason: shortness of breath or wheezing) Qty: 90 0RF Continued metformin 500 mg tablet extended release 24hr 500 mg PO BID Qty: 360 0RF Breo Ellipta 100-25 mcg/dose Blister With Device 1 inh INHALATION DAILY benzonatate 200 mg capsule 200 mg PO TID PRN (Reason: cough) Qty: 24 0RF benzonatate 200 mg capsule 200 mg PO TID PRN (Reason: cough) Qty: 15 0RF albuterol sulfate [Ventolin HFA] 90 mcg/actuation HFA aerosol inhaler 2 inh inhalation Q8H PRN (Reason: shortness of breath or wheezing) Qty: 8.5 0RF lorazepam 0.5 mg PO DAILY PRN (Reason: Anxiety) sertraline 25 mg PO DAILY Changed glipizide 5 mg tablet 5 mg PO BID 30 Days Qty: 60 0RF Discharge Orders: Discharge Order (Routine); Ordered 03/06/22 Ordered By: Galina Saba Admission Data Admit Date/Time: 03/02/22 06:39 Attending Provider: Galina Saba Admit Provider: Rohini Bray Primary Care Provider: Hilda Mathew Other Providers: Galina Saba ; Humble Hunter
[2022-03-06] MEDS ORDERED: LANTUS PER UNIT CHARGE SQ SCH (21:00)
[2022-03-07] MEDS ORDERED: LANTUS PER UNIT CHARGE SQ SCH (09:00)
== END 2022-03-06 17:29 | disposition home or self-care (01) | DRG 177 ==
LOC: ED 05:15 → EDINP 06:39 → SUATTDRO 06:39 → 2S 10:39